=== PATIENT | female | born 1950 | race Caucasian/White ===

== ENCOUNTER 2017-11-09 11:02 | Inpatient (IN) ==
--- NOTE | 2017-11-09 11:21 | Emergency Department Note ---
Disposition Clinical Impression: Chest pain Qualifiers: Chest pain type: unspecified Qualified Code(s): R07.9 - Chest pain, unspecified Disposition: Admitted As Inpatient Chest Pain HPI - General Chief Complaint: ED Chest Pain Stated Complaint: Chest pain Time Seen by Provider: 11/09/17 11:03 Source: patient, EMS Limitations: no limitations Vital Signs Reviewed: Yes Nursing Notes Reviewed: Yes - History of Present Illness HPI Narrative: 67-year-old female with past medical history CAD status post stent in 2006, A. fib on Coumadin, diabetes type 2, previous thyroid cancer, renal disease, and osteoporosis, presenting to the emergency department via EMS with sharp right sided nonradiating chest pain that began while sitting in her chair this morning. She states the pain is mostly constant since the onset of intermittent periods of worsening. She took an aspirin at home, but no nitroglycerin. Associated symptoms include nausea, hot flashes, dyspnea, RUQ pain, and LE edema. She denies any worsening with exertion or vomiting. She states that this chest pain is more intense, and more sharp than her usual chest pain. She denies any recent seizure surgery or prolonged immobility. She does have a history of a blood clot in her left arm after shoulder surgery. She denies recent illness, fever, chills, lightheadedness, syncope, cough, change in bowels, dysuria, or leg pain. Severity scale (1-10): 9 - Related Data Home Medications Medication Instructions Recorded Confirmed Meclizine [Antivert] 25 mg PO AD PRN 06/10/15 11/09/17 Aspirin [Adult Low Dose Aspirin EC] 81 mg PO QPM 07/18/15 11/09/17 Cyanocobalamin (Vitamin B-12) 2,500 mg PO QAM 07/18/15 11/09/17 [Vitamin B12] Diltiazem CD (24hr) [Cardizem CD] 240 mg PO QAM 07/18/15 11/09/17 Isosorbide MONOnitrate (24 HR) 90 mg PO QAM 07/18/15 11/09/17 [Imdur] Ranolazine [Ranexa] 1,000 mg PO BID 07/18/15 11/09/17 Rosuvastatin Calcium [Crestor] 10 mg PO QPM 07/18/15 11/09/17 Warfarin [Coumadin] 5 mg PO SUMOTUWEFRSA 07/18/15 11/09/17 Glimepiride [Amaryl] 3 mg PO QAM 07/21/15 11/09/17 Lansoprazole [Prevacid] 30 mg PO HS 07/21/15 11/09/17 Multivitamin/Iron/Folic Acid 1 each PO QAM 07/21/15 11/09/17 [Centrum Complete Multivit Tab] Saccharomyces Boulardii [Probiotic] 250 mg PO DAILY 07/21/15 11/09/17 Warfarin [Coumadin] 2.5 mg PO TH 07/21/15 11/09/17 Cholecalciferol (Vitamin D3) 1,000 unit PO DAILY 12/26/16 11/09/17 [Vitamin D] Denosumab [Prolia (For Outpatient 60 mg SQ Q6M 12/26/16 11/09/17 Infusion)] Losartan Potassium [Cozaar] 50 mg PO DAILY 12/26/16 11/09/17 Mirabegron [Myrbetriq] 50 mg PO HS 12/26/16 11/09/17 Desvenlafaxine Succinate 150 mg PO DAILY 11/09/17 11/09/17 [Desvenlafaxine Succinate ER] Insulin LISPRO [HumaLOG] 10 unit SQ TIDWM 11/09/17 11/09/17 Levothyroxine Sodium 200 mcg PO DAILY 11/09/17 11/09/17 [Levothyroxine Sodium] Linagliptin [Tradjenta] 5 mg PO DAILY 11/09/17 11/09/17 Allergies Allergy/AdvReac Type Severity Reaction Status Date / Time sulfamethoxazole AdvReac See Verified 12/26/16 09:31 [From Bactrim] Comments trimethoprim [From Bactrim] AdvReac See Verified 12/26/16 09:31 Comments All systems ED: reviewed and negative except as stated. Review of Systems: As Per HPI Chest Pain PMH - Past Medical History Medical history: Reports: atrial fibrillation, cancer, diabetes, GERD, hypertension, osteoporosis, renal disease, thyroid disease, other Surgical history: Reports: angioplasty/stent, breast surgery, hysterectomy, orthopedic, other Psychiatric history: Reports: anxiety, depression FINANCIAL SERVICES ASSOCIATE history: Reports: no FINANCIAL SERVICES ASSOCIATE history - Social History Smoking Status: Never smoker Alcohol use: Reports: none Drug use: Reports: none Physical Exam - General Limitations: no limitations General appearance: alert, in no apparent distress - Head Head exam: atraumatic, normocephalic - Eye Eye exam: Present: normal appearance, EOMI. Absent: scleral icterus, conjunctival injection - ENT ENT exam: mucous membranes moist - Chest Chest inspection: Present: symmetric chest wall rise - Expanded Respiratory Exam Location: decreased breath sounds: Left, Right, Upper, Lower - Cardiovascular Cardiovascular exam: Present: regular rate, normal rhythm, +S1, +S2 - Abdominal Exam Abdominal exam: Present: soft, tenderness, distention, normal bowel sounds. Absent: guarding, rebound, rigidity Abdominal tenderness: Present: diffuse, mild - Extremities Exam Extremities exam: Present: normal inspection, normal capillary refill, pedal edema (+2 bilateral pitting edema). Absent: tenderness, calf tenderness - Neurological Exam Neurological exam: Present: alert, oriented X3 - Skin Skin exam: Present: warm, dry, intact Course Vital Signs Temperature 98.0 F 11/09/17 11:04 Pulse Rate 68 11/09/17 11:04 Respiratory Rate 16 11/09/17 11:04 Blood Pressure 195/99 11/09/17 11:04 O2 Sat by Pulse Oximetry 97 11/09/17 11:04 Temperature 98.0 F 11/09/17 11:04 Pulse Rate 68 11/09/17 12:02 Respiratory Rate 12 11/09/17 12:02 Blood Pressure 182/94 11/09/17 12:02 O2 Sat by Pulse Oximetry 99 11/09/17 12:03 Oxygen Delivery Oxygen Delivery Room Air Chest Pain - [facility] Narrative Medical decision making narrative: Patient's presentations and symptoms are concerning for ACS. ECG from EMS shows no ST changes. Repeat ECG here shows normal rate and rhythm, normal morphology, no ST changes, no inverted T waves. Troponin negative. CBC shows anemia with hemoglobin 10.7 and is consistent with previous evaluation. Chemistry panel significant for creatinine of 1.82, however this is better than her creatinine has been over the past year. D-dimer is elevated at 703, and with the patient's poor renal function we will order a V/Q scan to evaluate for PE. Chest x-ray shows cardiomegaly and increased vascular congestion. This is consistent with patient's worsening lower extremity edema, however BNP is not currently elevated. V/Q scan shows low probability for PE. The patient has a HEART score of 5. She will be admitted to the hospital for continued monitoring and management. - Lab Data Result diagrams: 11/09/17 11:23 11/09/17 11:23 Lab Results 11/09/17 11/09/17 11/09/17 Range/Units 11:23 11:23 11:23 WBC 6.9 (4.3-11.1) K/mcL RBC 3.48 L (3.82-4.97) M/mcL Hgb 10.7 L (11.5-15.4) g/dL Hct 32.0 L (35.3-44.9) % MCV 92.0 (83.0-100.0) fL MCH 30.7 (28.0-33.3) pg MCHC 33.4 (31.6-35.5) g/dL RDW 13.2 (11.5-14.5) % Plt Count 186 (140-400) K/mcL MPV 9.7 (9.4-12.4) fL Immature Gran % 1.0 (0-4) % Seg Neutrophils % 62.7 % Lymphocytes % 27.7 % Monocytes % 6.5 % Eosinophils % 1.7 % Basophils % 0.4 % Neutrophils # 4.3 (1.6-8.9) K/mcL Lymphocytes # 1.9 (0.6-4.6) K/mcL Monocytes # 0.5 (0.0-1.3) K/mcL Eosinophils # 0.1 (0.0-0.6) K/mcL Basophils # 0.0 (0.0-0.2) K/mcL PT 23.8 H (9.4-12.1) Seconds INR 2.2 APTT 30.7 (26.0-36.0) Seconds D-Dimer 703 H (0-500) ng/mLFEU Sodium (136-145) mEq/L Potassium (3.5-5.1) mEq/L Chloride (98-107) mEq/L Carbon Dioxide (23-29) mEq/L BUN (8-23) mg/dL Creatinine (0.60-1.20) mg/dL Est GFR ( Amer) (> 60) Est GFR (Non-Af Amer) (> 60) BUN/Creatinine Ratio (6-26) Glucose (70-105) mg/dL Calculated Osmolality (280-300) Calcium (8.6-10.3) mg/dL Troponin I (< 0.04) ng/mL B-Natriuretic Peptide 34 (Less than 100) pg/mL 11/09/ Range/Units 11:23 WBC (4.3-11.1) K/mcL RBC (3.82-4.97) M/mcL Hgb (11.5-15.4) g/dL Hct (35.3-44.9) % MCV (83.0-100.0) fL MCH (28.0-33.3) pg MCHC (31.6-35.5) g/dL RDW (11.5-14.5) % Plt Count (140-400) K/mcL MPV (9.4-12.4) fL Immature Gran % (0-4) % Seg Neutrophils % % Lymphocytes % % Monocytes % % Eosinophils % % Basophils % % Neutrophils # (1.6-8.9) K/mcL Lymphocytes # (0.6-4.6) K/mcL Monocytes # (0.0-1.3) K/mcL Eosinophils # (0.0-0.6) K/mcL Basophils # (0.0-0.2) K/mcL PT (9.4-12.1) Seconds INR APTT (26.0-36.0) Seconds D-Dimer (0-500) ng/mLFEU Sodium 139 (136-145) mEq/L Potassium 3.8 (3.5-5.1) mEq/L Chloride 103 (98-107) mEq/L Carbon Dioxide 29 (23-29) mEq/L BUN 28 H (8-23) mg/dL Creatinine 1.82 H (0.60-1.20) mg/dL Est GFR ( Amer) 34 L (> 60) Est GFR (Non-Af Amer) 28 L (> 60) BUN/Creatinine Ratio 15 (6-26) Glucose 164 H (70-105) mg/dL Calculated Osmolality 297 (280-300) Calcium 9.7 (8.6-10.3) mg/dL Troponin I < 0.03 (< 0.04) ng/mL B-Natriuretic Peptide (Less than 100) pg/mL - EKG Data EKG attestation: Yes I reviewed and interpreted this EKG. EKG results narrative: normal rate and rhythm, normal morphology, no ST changes, no inverted T waves. Consistent with previous ECG. Heart Score - Score History: Moderately Suspicious EKG: Normal Age: Greater than 65 Risk Factors: Equal/Greater than 3 risk factor or history of atherosclerotic disease Troponin: Less than normal limit HEART Score Total: 5 Critical Care Time Critical Care Time: Yes Total Critical Care Time: 35 Attestation: Critical care time 35 minutes managing patient's chest pain hypertension and CHF. Attestation Statement - Attestation Attestation: Patient was seen with resident physician. I reviewed the history, physical, assessment and plan, and agree with the findings. I also personally evaluated this patient and had [id number] time with this patient. 67-year-old female presents to the emergency Department chief complaint of chest pain. Start approximately 9:00 AM. Right sided underneath the right breast a pressure component as well as a sharp component. Not reproducible. Dissimilar from her heart attack pain in that is more severe and in a different location. Denies fevers chills nausea or vomiting she did have some mild diaphoresis. No significant shortness of breath. She notes that her legs are more swollen than usual. She says some days are good some days are bad and today's a bad day. On examination vital signs demonstrate hypertension. ENT is unremarkable. Heart and lungs are normal. Chest wall is stable with nonreproducible pain. Abdomen is obese nontender. Extremities she has got 2+ edema lower extremities symmetrically bilaterally. Neurologically intact skin no obvious rashes. And psych is normal. ED course EKG shows no acute ischemic changes when compared with prior EKG. Chest x-ray shows some vascular congestion which is consistent with CHF. She did have a positive d-dimer which triggered a CT scan of the chest as well. She is given 3 nitros which helped a little bit with her pain and also with her blood pressure. Because of the patient's multiple comorbidities and cardiac history. Will admit to the hospitalist service for additional evaluation and treatment. Critical care time was 35 minutes for this patient. VQ scan was obtained and was low probability for pulmonary embolism.
[2017-11-09 11:29] LABS: Basophils % 0.4 %; Eosinophils # 0.1 K/mcL (0.0-0.6); Eosinophils % 1.7 %; Hemoglobin 10.7 g/dL (11.5-15.4); Lymphocytes # 1.9 K/mcL (0.6-4.6); Lymphocytes % 27.7 %; Mean Corpuscular HGB Conc 33.4 g/dL (31.6-35.5); Mean Corpuscular Hemoglobin 30.7 pg (28.0-33.3); Mean Platelet Volume 9.7 fL (9.4-12.4); Monocytes # 0.5 K/mcL (0.0-1.3); Monocytes % 6.5 %; Neutrophils # 4.3 K/mcL (1.6-8.9); Platelet Count 186 K/mcL (140-400); Red Blood Count 3.48 M/mcL (3.82-4.97); Red Cell Distribution Width 13.2 % (11.5-14.5); Segmented Neutrophils % 62.7 %
[2017-11-09 11:35] LABS: INR 2.2; Prothrombin Time 23.8 Seconds (9.4-12.1)
[2017-11-09 11:38] LABS: Activated Partial Thrombo Time 30.7 Seconds (26.0-36.0)
[2017-11-09] MEDS: Nitroglycerin 0.4 MG TAB.SUBL SL ONE ×2 (11:40→12:02)
[2017-11-09 11:52] LABS: BUN/Creatinine Ratio 15 (6-26); Blood Urea Nitrogen 28 mg/dL (8-23); Calcium 9.7 mg/dL (8.6-10.3); Carbon Dioxide 29 mEq/L (23-29); Chloride 103 mEq/L (98-107); Glucose 164 mg/dL (70-105); Osmolality,Calculated 297 (280-300); Potassium 3.8 mEq/L (3.5-5.1); Sodium 139 mEq/L (136-145); eGFR For African Americans 34 (> 60); eGFR For Non-African Americans 28 (> 60)
[2017-11-09 11:53] LABS: Troponin I < 0.03 ng/mL (< 0.04)
[2017-11-09] MEDS ORDERED: *HR* FentaNYL (PF) 100 MCG/2 ML VIAL IVP ONE ×2 (12:08→12:24)
[2017-11-09] MEDS ORDERED: Naloxone 0.4 MG/ML INJ IVP PRN (15:18)
[2017-11-09] MEDS: *HR* OxyCODONE Immed Rel 5 MG TABLET PO PRN ×2 (15:53→22:14)
[2017-11-09] MEDS ORDERED: *HR* Dextrose 50 % in Water (Syg) 50 ML SYRINGE IVP PRN (15:55)
[2017-11-09] MEDS ORDERED: D5% in Water 1,000 ML IVC PRN (15:55)
[2017-11-09] MEDS ORDERED: Dextrose Gel 15 GM/37.5 ML TUBE PO PRN ×2 (15:55)
--- NOTE | 2017-11-09 16:04 | Internal Med History&Physical ---
<Kanwal Singh - Last Filed: 11/09/17 15:58> Date of Encounter: 11/09/17 Time of Encounter: 15:58 Assessment and Plan (1) Atypical chest pain Current visit: Yes Status: Acute Patient with right-sided chest pain since 10 am today. She has a history of CAD with stent placement as well as afib on coumadin. Other cardiovascular risk factors include type 2 diabetes and hypertension. EKG showed no ST changes and normal rate and rhythm. CXR showed cardiomegaly and increased vascular congestion. BNP was normal at 34. Troponin was negative at <0.03. D- dimer was mildly elevated at 703. V/Q scan was negative for PE. Will be evaluating for cholecystitis and pancreatitis, but will rule out ACS given patient's history and risk factors. 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 (2) RUQ abdominal pain Current visit: Yes Status: Acute Patient with RUQ pain, nausea. She is tender to palpation in the RUQ as well. She reports regular bowel movements today. She has never had her gall bladder out. Will check Amylase/Lipase with concern for possible pancreatitis and get a RUQ ultrasound to evaluate for possible cholecystitis. NPO. Pain control. (3) Atrial fibrillation Current visit: Yes Status: Chronic History of afib on diltiazem and coumadin. EKG showed RRR today. INR therapeutic at 2.2. Continue home dose of diltiazem. Pharmacy to dose coumadin. 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 Qualifiers: Atrial fibrillation type: unspecified Qualified Code(s): I48.91 - Unspecified atrial fibrillation (4) Anticoagulated on Coumadin Current visit: Yes Status: Acute INR therapeutic at 2.2. Check PT/INR daily. PHarmacy to dose coumadin. (5) CKD (chronic kidney disease) Current visit: Yes Status: Chronic Cr of 1.82 today consistent with baseline. Check chemistry daily. Qualifiers: Chronic kidney disease stage: stage 2 (mild) Qualified Code(s): N18.2 - Chronic kidney disease, stage 2 (mild) (6) Type II diabetes mellitus Current visit: Yes Status: Chronic Patient with Type 2 diabetes. Hold glimeperide and tradjenta Patient NPO due to nausea. Check blood sugars Q6 hours Sliding scale correction dose Q6 hours hypoglycemic protocol. 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 Patient on coumadin for Afib, additional pharmacologic prophylaxis not warranted. Internal Medicine - H&P: HPI Chief complaint: chest pain and nausea Admitted From: Emergency Dept Plans for Post Hospital Care: Home History of present illness: Ms. Dawn is a 67 year old female with history of coronary artery disease status post stent placement, atrial fibrillation, on Coumadin, type 2 diabetes on insulin, chronic kidney disease, osteoporosis, hypertension, GERD, who presented to the emergency department today complaining of chest pain. She reports chest pain started at 10 AM this morning and states it is right under her right breast and radiating to her back. She reports she took aspirin which did not help. The pain is constant, nothing seems to make it better or worse. She also reporting constant nausea, hot flashes, and increased lower extremity edema, as well as lightheadedness. Evaluation emergency department included an EKG which showed no ST changes, normal rate and rhythm, chest x-ray showed cardiomegaly with increased vascular congestion. BNP was normal at 34, d-dimer is mildly elevated at 703. VQ scan was done which was negative for PE. Troponin was negative less than 0.03. INR was therapeutic at 2.2. Creatinine of 1.8 to was consistent with previous results and her history of CKD. On exam , patient is alert and oriented, in mild distress due to her pain. She is morbidly obese. Heart has regular rate and rhythm, no murmurs rubs or gallops. Lungs are clear bilaterally to auscultation except some mild crackles in her right base. Abdomen is soft, positive bowel sounds, tender to palpation in the right upper quadrant. +1 bilateral lower extremity edema with good peripheral pulses. Past Med Surg Social Fam HX - Past Medical History Medical history: atrial fibrillation, cancer, DVT, diabetes, GERD, hypertension , osteoporosis, renal disease, thyroid disease, other Psychiatric history: anxiety, depression - Past Surgical History Surgical History: angioplasty/stent, breast surgery, hysterectomy, orthopedic, other - Social History Smoking Status: Never smoker Smokeless Tobacco Status: No Alcohol use: none Drug use: none - Family History Mother Living Status: Hx Family Cardiac Disorders: Yes Hx Family Respiratory Disorders: No Hx Family Cancer: Yes Hx Family GI Disorders: No Hx Family Endocrine Disorder: No Hx Family Neuromuscular Disorders: No Hx Family Neurologic Disorders: No Hx Family HEENT Disorders: No Hx Family Autoimmune Disorders: No Hx Family Medical Disorders: Yes (brain aneurysm) Father Living Status: Hx Family Medical Disorders: Yes ("nosebleed from coumadin") Internal Medicine - H&P: Meds Meclizine [Antivert] 25 mg PO AD PRN 06/10/15 [History] Aspirin [Adult Low Dose Aspirin EC] 81 mg PO QPM 07/18/15 [History] Cyanocobalamin (Vitamin B-12) [Vitamin B12] 2,500 mg PO QAM 07/18/15 [History] Diltiazem CD (24hr) [Cardizem CD] 240 mg PO QAM 07/18/15 [History] Isosorbide MONOnitrate (24 HR) [Imdur] 90 mg PO QAM 07/18/15 [History] Ranolazine [Ranexa] 1,000 mg PO BID 07/18/15 [History] Rosuvastatin Calcium [Crestor] 10 mg PO QPM 07/18/15 [History] Warfarin [Coumadin] 5 mg PO SUMOTUWEFRSA 07/18/15 [History] Glimepiride [Amaryl] 3 mg PO QAM 07/21/15 [History] Lansoprazole [Prevacid] 30 mg PO HS 07/21/15 [History] Multivitamin/Iron/Folic Acid [Centrum Complete Multivit Tab] 1 each PO QAM 07/21 [History] Saccharomyces Boulardii [Probiotic] 250 mg PO DAILY 07/21/15 [History] Warfarin [Coumadin] 2.5 mg PO TH 07/21/15 [History] Cholecalciferol (Vitamin D3) [Vitamin D] 1,000 unit PO DAILY 12/26/16 [History] Denosumab [Prolia (For Outpatient Infusion)] 60 mg SQ Q6M 12/26/16 [History] Losartan Potassium [Cozaar] 50 mg PO DAILY 12/26/16 [History] Mirabegron [Myrbetriq] 50 mg PO HS 12/26/16 [History] Desvenlafaxine Succinate [Desvenlafaxine Succinate ER] 150 mg PO DAILY 11/09/17 [History] Insulin LISPRO [HumaLOG] 10 unit SQ TIDWM 11/09/17 [History] Levothyroxine Sodium [Levothyroxine Sodium] 200 mcg PO DAILY 11/09/17 [History] Linagliptin [Tradjenta] 5 mg PO DAILY 11/09/17 [History] 3 Allergy/AdvReac Type Severity Reaction Status Date / Time sulfamethoxazole AdvReac See Verified 12/26/16 09:31 [From Bactrim] Comments trimethoprim [From Bactrim] AdvReac See Verified 12/26/16 09:31 Comments All Systems PM: A 10-system review of systems was performed and is negative for pertinent findings except as documented above in the HPI. - Constitutional Constitutional: anorexia, chills - EENT Eyes: no change in vision, no discharge, no pain, no photophobia Ears: no ear discharge, no ear pain, no tinnitus Nose, mouth and throat: no dysphagia, no nasal discharge, no neck pain, no sore throat - Cardiovascular Cardiovascular ROS IM: chest pain, edema, lightheadedness, no diaphoresis, no dyspnea, no palpitations, no syncope - Respiratory Respiratory: no cough, no dyspnea, no wheezing, no excessive phlegm production - Gastrointestinal Gastrointestinal: abdominal pain, nausea, no diarrhea, no hematemesis, no hematochezia, no melena, no vomiting - Genitourinary Genitourinary: no change in urinary stream, no dysuria, no flank pain, no hematuria - Musculoskeletal Musculoskeletal ROS IM: no numbness, no tingling - Integumentary Integumentary IM: no rash, no unusual bruising - Neurological Neurological ROS: no confusion, no convulsions, no focal weakness, no numbness, no tingling, no tremor(s) - Hematologic/Lymphatic Hematologic/Lymphatic: no easy bruising - Constitutional Vitals: Temp Pulse Resp BP Pulse Ox 97.5 F L 56 16 189/92 96 11/09/17 14:51 11/09/17 14:51 11/09/17 14:51 11/09/17 14:51 11/09/17 15:01 General appearance: Present: mild distress, A&O X 3, morbidly obese - Head Head exam: Present: atraumatic, normocephalic - Eye Eye exam: Present: PERRL, conjuntiva pink, sclera anicteric Pupils: Present: PERRL - Neck Neck exam general surgery: Present: supple, trachea midline. Absent: lymphadenopathy - Respiratory Respiratory exam: Present: CTAB. Absent: accessory muscle use, rales, rhonchi, wheezes Additional comments: mild crackles in right base - Cardiovascular Cardiovascular exam: Present: RRR, +S1, +S2. Absent: diastolic murmur, gallop, rubs, systolic murmur - GI/Abdominal GI/Abdominal exam: Present: normal bowel sounds, soft, tenderness (right upper quadrant). Absent: distended - Extremities Exam Extremities exam: Present: pedal edema (+2 BLE edema), warm, radial pulses palpable and symmetrical. Absent: calf tenderness, cyanotic - Neurological Exam Neurological exam: Present: CN II-XII intact, oriented X3, no focal deficits. Absent: facial droop, speech deficit - Skin Skin exam: Present: dry, intact Internal Med - H&P Results - Labs CBC & Chem 7: 11/09/17 11:23 11/09/17 11:23 - Diagnostic Studies Other Images Additional comments: Pulmonary Perfusion Imaging 11/09/17 11:59 IMPRESSION: Low Probability for Pulmonary Embolus. No scintigraphic evidence of acute PE. D/ / Adis Ricardo MD / Adis Ricardo MD Interpreting Provider: Adis Ricardo MD Chest x-ray Additional comments: Chest X-Ray 11/09/17 11:15 IMPRESSION: Cardiomegaly and central vascular congestion. D/ / Marcell Dejesus MD / Marcell Dejesus MD Interpreting Provider: Marcell Dejesus MD <RonnElia العلي - Last Filed: 11/09/17 19:36> Date of Encounter: 11/09/17 Internal Medicine - H&P: HPI History of present illness: Ms. Dwan is a 67 year old female All Systems PM: A 10-system review of systems was performed and is negative for pertinent findings except as documented above in the HPI. - Constitutional Vitals: Temp Pulse Resp BP Pulse Ox 98.2 F 76 16 207/87 95 11/09/17 15:18 11/09/17 15:18 11/09/17 15:18 11/09/17 15:18 11/09/17 15:18 Internal Med - H&P Results - Labs CBC & Chem 7: 11/09/17 11:23 11/09/17 11:23 - Impressions ITS Impressions Gallbladder Ultrasound 11/09/17 15:34 IMPRESSION: Cholelithiasis and probable cholecystitis. Enlarging right adrenal mass. Recommend follow-up CT adrenal protocol and/or MRI adrenal protocol. RECOMMENDATIONS: The findings were sent to the Radiology Results Communication Center at 6:52 pm on 11/09/2017to be communicated to a licensed caregiver. D/ / Lee Forman MD / Lee Forman MD Interpreting Provider: Lee Forman MD - Attending Attestation I have personally performed a face to face evaluation on this patient. I have reviewed and agree with the care plan. History and Exam by me shows: Patient presented to the hospital for evaluation of shortness of breath. She describes right-sided shortness of breath under the right breast sharp and stabbing. On exam she is in mild distress due to chest pain. Heart is regular. Lungs are clear. Examination of chest wall shows no rashes bruises or deformities. There is tenderness to palpation of the right lower rib cage. Laboratory data: Troponin negative. VQ scan was low probability for PE Assessment: Atypical chest pain in a patient with multiple risk factors. Plan: Trend troponin. Obtain echocardiogram and stress test. Agree with gallbladder ultrasound to rule out any intra-abdominal pathology. Add lipase.
[2017-11-09] MEDS: Ondansetron 4 MG/2 ML VIAL IVP PRN (16:52)
[2017-11-09 16:58] LABS: Amylase 15 Units/L (29-103); Lipase 25 Units/L (11-82)
[2017-11-09] MEDS ORDERED: *HR* Warfarin 5 MG TABLET PO ONE (18:00)
[2017-11-09] MEDS ORDERED: Warfarin perPT PO PRN (18:00)
[2017-11-09] MEDS ORDERED: Ondansetron 4 MG/2 ML VIAL IVP SCH (18:00)
[2017-11-09] MEDS: Insulin LISPRO 300 UNITS/3 ML VIAL SQ SCH (19:01)
[2017-11-09] MEDS: Aspirin Enteric Coated 81 MG Tablet PO SCH (19:01)
[2017-11-09 21:20] LABS: Albumin 3.2 g/dL (3.5-5.7); Bilirubin,Direct 0.1 mg/dL (0.0-0.2); Bilirubin,Indirect 0.2 mg/dL (0.0-1.2); Bilirubin,Total 0.3 mg/dL (0.3-1.0); Globulin 3.1 g/dL (2.4-3.5); Total Protein 6.3 g/dL (6.4-8.9)
[2017-11-09] MEDS: Ranolazine 500 MG TAB.ER.12H PO SCH (22:13)
[2017-11-09] MEDS: (Mirabegron [Myrbetriq] 50 MG) PO SCH (22:14)
--- NOTE | 2017-11-09 23:33 | General Surgery Consult Note ---
Date of Encounter: 11/09/17 Time of Encounter: 23:31 Assessment and Plan (1) RUQ abdominal pain Current Visit: Yes Status: Acute 67F with atypical symptoms of gallbladder disease, currently in pain, INR within therapeutic range; IVF pain control CLD if the patient's pain is controlled in the AM can possibly plan for outpatient evaluation and plan for surgery if pain is not controlled, then jignesh rankin plan for inpatient procedure cares per primary team History of Present Illness Consult date: 11/09/17 Reason for consult: abdominal pain History of present illness: 67F h/o CAD s/p stent, atrial fibrillation currently on anticoagulant with iNR within therapeutic range presents with what she felt was chest pain consistent with cardiac pathology. Her work up, however, was negative. an US was obtained , which was reviewed and interpreted by me, demonstrated cholelithiasis. She does not report any post prandial pain, but does give an obscure history of persistent nausea. When asked where her pain is, she points to her RUQ. Surgery was consulted for management recommendations. Past Med Surg Social Fam HX - Past Medical History Medical history: atrial fibrillation, cancer, DVT, diabetes, GERD, hypertension , osteoporosis, renal disease, thyroid disease, other Psychiatric history: anxiety, depression - Past Surgical History Surgical History: angioplasty/stent, breast surgery, hysterectomy, orthopedic, other - Social History Smoking Status: Never smoker Smokeless Tobacco Status: No Alcohol use: none Drug use: none - Family History Mother Living Status: Hx Family Cardiac Disorders: Yes Hx Family Respiratory Disorders: No Hx Family Cancer: Yes Hx Family GI Disorders: No Hx Family Endocrine Disorder: No Hx Family Neuromuscular Disorders: No Hx Family Neurologic Disorders: No Hx Family HEENT Disorders: No Hx Family Autoimmune Disorders: No Hx Family Medical Disorders: Yes (brain aneurysm) Father Living Status: Hx Family Medical Disorders: Yes ("nosebleed from coumadin") Medications and Allergies Meclizine [Antivert] 25 mg PO AD PRN 06/10/15 [History] Aspirin [Adult Low Dose Aspirin EC] 81 mg PO QPM 07/18/15 [History] Cyanocobalamin (Vitamin B-12) [Vitamin B12] 2,500 mg PO QAM 07/18/15 [History] Diltiazem CD (24hr) [Cardizem CD] 240 mg PO QAM 07/18/15 [History] Isosorbide MONOnitrate (24 HR) [Imdur] 90 mg PO QAM 07/18/15 [History] Ranolazine [Ranexa] 1,000 mg PO BID 07/18/15 [History] Rosuvastatin Calcium [Crestor] 10 mg PO QPM 07/18/15 [History] Warfarin [Coumadin] 5 mg PO [id number] 07/18/15 [History] Glimepiride [Amaryl] 3 mg PO QAM 07/21/15 [History] Lansoprazole [Prevacid] 30 mg PO HS 07/21/15 [History] Multivitamin/Iron/Folic Acid [Centrum Complete Multivit Tab] 1 each PO QAM 07/21 [History] Saccharomyces Boulardii [Probiotic] 250 mg PO DAILY 07/21/15 [History] Warfarin [Coumadin] 2.5 mg PO TH 07/21/15 [History] Cholecalciferol (Vitamin D3) [Vitamin D] 1,000 unit PO DAILY 12/26/16 [History] Denosumab [Prolia (For Outpatient Infusion)] 60 mg SQ Q6M 12/26/16 [History] Losartan Potassium [Cozaar] 50 mg PO DAILY 12/26/16 [History] Mirabegron [Myrbetriq] 50 mg PO HS 12/26/16 [History] Desvenlafaxine Succinate [Desvenlafaxine Succinate ER] 150 mg PO DAILY 11/09/17 [History] Insulin LISPRO [HumaLOG] 10 unit SQ TIDWM 11/09/17 [History] Levothyroxine Sodium [Levothyroxine Sodium] 200 mcg PO DAILY 11/09/17 [History] Linagliptin [Tradjenta] 5 mg PO DAILY 11/09/17 [History] 3 Allergy/AdvReac Type Severity Reaction Status Date / Time sulfamethoxazole AdvReac See Verified 12/26/16 09:31 [From Bactrim] Comments trimethoprim [From Bactrim] AdvReac See Verified 12/26/16 09:31 Comments Review of Systems All systems PM: The remainder of the systems were reviewed and are negative General Surgery Exam Initial Vital Signs Temp Pulse Resp BP Pulse Ox 98.0 F 68 16 195/99 97 11/09/17 11:04 11/09/17 11:04 11/09/17 11:04 11/09/17 11:04 11/09/17 11:04 - General physical appearance no distress - Eyes other (no scleral icterus) - ENT normocephalic - Neck no masses, trachea midline, no lymphadectomy - Respiratory normal expansion, normal respiratory effort - Cardiovascular Cardiovascular exam: Present: RRR - Abdomen Abdomen general surgery: Present: soft, tender Abdominal Tenderness: Present: RUQ - Integumentary Integumentary general surgery: Present: warm and dry - Neurologic Present: CN 2-12 grossly intact - Psychiatric Psychiatric general surgery: Present: A&Ox3 Exam Initial Vital Signs Temp Pulse Resp BP Pulse Ox 98.0 F 68 16 195/99 97 11/09/17 11:04 11/09/17 11:04 11/09/17 11:04 11/09/17 11:04 11/09/17 11:04 Results - Labs 11/09/17 11:23 11/09/17 11:23 Abnormal lab results RBC 3.48 M/mcL (3.82-4.97) L 11/09/17 11:23 Hgb 10.7 g/dL (11.5-15.4) L 11/09/17 11:23 Hct 32.0 % (35.3-44.9) L 11/09/17 11:23 PT 23.8 Seconds (9.4-12.1) H 11/09/17 11:23 D-Dimer 703 ng/mLFEU (0-500) H 11/09/17 11:23 BUN 28 mg/dL (8-23) H 11/09/17 11:23 Creatinine 1.82 mg/dL (0.60-1.20) H 11/09/17 11:23 Est GFR ( Amer) 34 (> 60) L 11/09/17 11:23 Est GFR (Non-Af Amer) 28 (> 60) L 11/09/17 11:23 Glucose 164 mg/dL (70-105) H 11/09/17 11:23 POC Glucose 174 (58-89) H 11/09/17 18:48 AST 12 Units/L (13-39) L 11/09/17 20:19 Serum Total Protein 6.3 g/dL (6.4-8.9) L 11/09/17 20:19 Albumin 3.2 g/dL (3.5-5.7) L 11/09/17 20:19 Albumin/Globulin Ratio 1.0 (1.1-2.2) L 11/09/17 20:19 Amylase 15 Units/L (29-103) L 11/09/17 15:54 Diabetes panel 11/09/17 Range/Units 20:19 AST 12 L (13-39) Units/L ALT 12 (7-52) Units/L Alkaline Phosphatase 68 (34-104) Units/L Albumin 3.2 L (3.5-5.7) g/dL Calcium panel 11/09/17 Range/Units 20:19 Albumin 3.2 L (3.5-5.7) g/dL Adrenal panel 11/09/17 Range/Units 20:19 Total Bilirubin 0.3 (0.3-1.0) mg/dL AST 12 L (13-39) Units/L ALT 12 (7-52) Units/L Alkaline Phosphatase 68 (34-104) Units/L Albumin 3.2 L (3.5-5.7) g/dL All other labs normal. - Imaging US - abdomen: report reviewed, image reviewed (cholelithiasis, possible cholecystitis) Consult Discharge Plan - Plan
[2017-11-10] MEDS: Insulin LISPRO 300 UNITS/3 ML VIAL SQ SCH ×4 (00:14→19:02)
[2017-11-10 01:40] LABS: Basophils % 0.2 %; Hematocrit 32.2 % (35.3-44.9); Hemoglobin 10.5 g/dL (11.5-15.4); Immature Granulocytes % 0.8 % (0-4); Lymphocytes # 0.9 K/mcL (0.6-4.6); Lymphocytes % 9.1 %; Mean Corpuscular HGB Conc 32.6 g/dL (31.6-35.5); Mean Corpuscular Hemoglobin 30.6 pg (28.0-33.3); Mean Corpuscular Volume 93.9 fL (83.0-100.0); Mean Platelet Volume 10.8 fL (9.4-12.4); Monocytes # 0.4 K/mcL (0.0-1.3); Monocytes % 3.9 %; Neutrophils # 8.7 K/mcL (1.6-8.9); Platelet Count 220 K/mcL (140-400); Red Blood Count 3.43 M/mcL (3.82-4.97); Red Cell Distribution Width 13.4 % (11.5-14.5)
[2017-11-10 01:52] LABS: Prothrombin Time 22.3 Seconds (9.4-12.1)
[2017-11-10 02:10] LABS: Albumin 3.3 g/dL (3.5-5.7); Albumin/Globulin Ratio 1.2 (1.1-2.2); Bilirubin,Total 0.3 mg/dL (0.3-1.0); Calcium 9.5 mg/dL (8.6-10.3); Chol/HDL Ratio 4.7 (0-4.9); Globulin 2.8 g/dL (2.4-3.5); Potassium 4.2 mEq/L (3.5-5.1); Total Protein 6.1 g/dL (6.4-8.9)
[2017-11-10] MEDS: *HR* OxyCODONE Immed Rel 5 MG TABLET PO PRN ×3 (06:24→18:49)
[2017-11-10] MEDS: Diltiazem CD (24hr) 240 MG CAPSULE PO SCH (07:46)
[2017-11-10] MEDS: Cholecalciferol (D-3) 1,000 UNIT TABLET PO SCH (07:46)
[2017-11-10] MEDS: Venlafaxine XR (24 HR) 75 MG CAP.ER.24H PO SCH (07:47)
[2017-11-10] MEDS: Ranolazine 500 MG TAB.ER.12H PO SCH ×2 (07:47→20:40)
[2017-11-10] MEDS: Isosorbide MONOnitrate (24 HR) 60 MG TAB.ER.24H PO SCH (07:47)
[2017-11-10] MEDS: (Linagliptin [Tradjenta] 5 MG) PO SCH (07:48)
[2017-11-10] MEDS ORDERED: *HR* Glimepiride 2 MG TABLET PO SCH (09:00)
[2017-11-10] MEDS: Ondansetron 4 MG/2 ML VIAL IVP PRN (11:56)
[2017-11-10] MEDS: 0.9 % Sodium Chloride 1,000 ML IVC SCH (12:00)
--- NOTE | 2017-11-10 14:43 | General Surgery Progress Note ---
Date of Encounter: 11/10/17 Time of Encounter: 14:39 - Assessment and Plan (1) RUQ abdominal pain Current Visit: Yes Status: Acute 67F with atypical symptoms of gallbladder disease, currently in pain, INR within therapeutic range; IVF pain control - if this can be accomplished, then can plan for discharge with plans for follow up in clinic and scheduling surgery if pain is not controlled and patient is not able to tolerate a diet by 11/11, then will plan for surgery this week (either or saturday) will cont to follow Subjective Patient reports: no new complaints, still having pain, pain is less, afebrile Objective Vital Signs - Last 8 Hours Temp Pulse Resp BP Pulse Ox 11/10/17 11:09 98.2 F 90 20 180/109 93 11/10/17 08:01 93 11/10/17 06:45 98.8 F 97 18 162/80 93 Intake and Output 11/09/17 11/10/17 11/10/17 23:59 07:59 15:59 Intake Total 120 / 120 Output Total 200 / 200 Balance -200 / -200 120 / 120 Intake: Oral 120 / 120 Output: Urine 200 / 200 Other: Meal Lunch Percent of Meal Consumed 50% # Voids 1 Blood Glucose* 183 204 - General physical appearance well developed, no distress - Eyes other (no scleral icterus) - Respiratory normal expansion, normal respiratory effort - Cardiovascular Cardiovascular exam: Present: RRR - Abdomen Abdomen: Present: soft, tender Abdominal Tenderness: epigastic (non peritoneal, (-)latham's on exam), RUQ - Integumentary no rash - Neurologic CN 2-12 grossly intact - Psychiatric oriented to time, oriented to person, oriented to place - Labs 11/10/17 00:40 11/10/17 00:40 Diabetes panel 11/09/17 11/10/17 Range/Units 20:19 00:40 Sodium 138 (136-145) mEq/L Potassium 4.2 (3.5-5.1) mEq/L Chloride 104 (98-107) mEq/L Carbon Dioxide 25 (23-29) mEq/L BUN 27 H (8-23) mg/dL Creatinine 1.67 H (0.60-1.20) mg/dL Glucose 200 H (70-105) mg/dL Calcium 9.5 (8.6-10.3) mg/dL AST 12 L 16 (13-39) Units/L ALT 12 11 (7-52) Units/L Alkaline Phosphatase 68 73 (34-104) Units/L Albumin 3.2 L 3.3 L (3.5-5.7) g/dL Triglycerides 250 H (< 150) mg/dL HDL Cholesterol 51 (40-59) mg/dL Calcium panel 11/09/17 11/10/17 Range/Units 20:19 00:40 Calcium 9.5 (8.6-10.3) mg/dL Albumin 3.2 L 3.3 L (3.5-5.7) g/dL Pituitary panel 11/10/17 Range/Units 00:40 Sodium 138 (136-145) mEq/L Potassium 4.2 (3.5-5.1) mEq/L Chloride 104 (98-107) mEq/L Carbon Dioxide 25 (23-29) mEq/L BUN 27 H (8-23) mg/dL Creatinine 1.67 H (0.60-1.20) mg/dL Glucose 200 H (70-105) mg/dL Calcium 9.5 (8.6-10.3) mg/dL Adrenal panel 11/09/17 11/10/17 Range/Units 20:19 00:40 Sodium 138 (136-145) mEq/L Potassium 4.2 (3.5-5.1) mEq/L Chloride 104 (98-107) mEq/L Carbon Dioxide 25 (23-29) mEq/L BUN 27 H (8-23) mg/dL Creatinine 1.67 H (0.60-1.20) mg/dL Glucose 200 H (70-105) mg/dL Calcium 9.5 (8.6-10.3) mg/dL Total Bilirubin 0.3 0.3 (0.3-1.0) mg/dL AST 12 L 16 (13-39) Units/L ALT 12 11 (7-52) Units/L Alkaline Phosphatase 68 73 (34-104) Units/L Albumin 3.2 L 3.3 L (3.5-5.7) g/dL Consult Discharge Plan - Plan Referrals: Kaiden Hammer DO [Primary Care Provider] -
[2017-11-10] MEDS: Aspirin Enteric Coated 81 MG Tablet PO SCH (17:26)
[2017-11-10] MEDS ORDERED: *HR* Warfarin 5 MG TABLET PO ONE (18:00)
--- NOTE | 2017-11-10 19:11 | Internal Med Progress Note ---
Date of Encounter: 11/10/17 Time of Encounter: 19:09 - Assessment and plan (1) RUQ abdominal pain Current Visit: Yes Status: Acute Assessment and plan: Ultrasound with suspected cholecystitis. Surgery consulted; appreciate input. Consider inpatient vs outpatient cholecystecomy based on pain control and tolerance of diet. Advance to full liquid diet. Pain control. (2) Cholecystitis Current Visit: Yes Status: Suspected Assessment and plan: As per above. (3) Atypical chest pain Current Visit: Yes Status: Acute Assessment and plan: Chest pain resolved. Troponin trended down this AM to 0.04. F/U ECHO results. Will consider stress test after resolution of acute GI issue. (4) Type II diabetes mellitus Current Visit: Yes Status: Chronic Assessment and plan: Continue accuchecks and SSI QID AC/HS. Qualifiers: Diabetes mellitus complication status: with kidney complications Diabetes mellitus complication detail: with chronic kidney disease Diabetes mellitus manager long term care insulin use: with mcc use Chronic kidney disease stage: stage 3 (moderate) Qualified Code(s): E11.22 - Type 2 diabetes mellitus with diabetic chronic kidney disease; N18.3 - Chronic kidney disease, stage 3 ( moderate); N18.3 - Chronic kidney disease, stage 3 (moderate); Z79.4 - ferry terminal agent (current) use of insulin; Z79.4 - intermediate (current) use of insulin; Z79.4 - ferry terminal agent (current) use of insulin; Z79.4 - intermediate (current) use of insulin (5) Atrial fibrillation Current Visit: Yes Status: Chronic Assessment and plan: Continue home diltiazem and coumadin. Qualifiers: Atrial fibrillation type: unspecified Qualified Code(s): I48.91 - Unspecified atrial fibrillation (6) Anticoagulated on Coumadin Current Visit: Yes Status: Chronic Assessment and plan: Therapeutic. Continue coumadin. Check PT/INR daily. Pharmacy to dose coumadin. (7) CKD (chronic kidney disease) Current Visit: Yes Status: Chronic Assessment and plan: Cr at baseline. Continue to monitor. Qualifiers: Chronic kidney disease stage: stage 2 (mild) Qualified Code(s): N18.2 - Chronic kidney disease, stage 2 (mild) (8) DVT prophylaxis Current Visit: Yes Status: Acute Assessment and plan: On coumadin. - Time Spent With Patient less than 15 minutes - Subjective Interval history: Patient had no acute events overnight. She continues to have significant abdominal pain this AM. No pain in chest. She is tolerating clear liquid diet. She has no new complaints. - Constitutional Vitals: Temp Pulse Resp BP Pulse Ox 97.8 F 73 16 120/67 93 11/10/17 15:34 11/10/17 15:34 11/10/17 15:34 11/10/17 15:34 11/10/17 15:34 General appearance: Present: mild distress, A&O X 3, morbidly obese - Respiratory Respiratory exam: Present: CTAB. Absent: accessory muscle use, rales, rhonchi, wheezes Additional comments: Normal WOB - Cardiovascular Cardiovascular exam: Present: RRR, +S1, +S2. Absent: diastolic murmur, gallop, rubs, systolic murmur Additional comments: No BLE edema - GI/Abdominal GI/Abdominal exam: Present: normal bowel sounds, soft. Absent: distended, hepatomegaly, mass, splenomegaly Additional comments: Moderate diffuse TTP across epigastrium. - Psychiatric Psychiatric exam: Present: normal affect, normal mood. Absent: anxious, depressed - Skin Skin exam: Present: dry, intact, warm. Absent: cyanosis, rash Internal Medicine: Result - Labs CBC & Chem 7: 11/10/17 00:40 11/10/17 00:40 Labs: Short CBC 11/10/17 Range/Units 00:40 WBC 10.2 (4.3-11.1) K/mcL Hgb 10.5 L (11.5-15.4) g/dL Hct 32.2 L (35.3-44.9) % Plt Count 220 (140-400) K/mcL Neutrophils # 8.7 (1.6-8.9) K/mcL BMP 11/10/17 00:40 Sodium 138 Potassium 4.2 Chloride 104 Carbon Dioxide 25 BUN 27 H Creatinine 1.67 H Glucose 200 H Calcium 9.5 Cardiac Enzymes 11/09/17 11/10/17 11/10/17 Range/Units 19:09 00:40 08:03 Troponin I 0.03 0.05 H* 0.04 H* (< 0.04) ng/mL Liver Function 11/09/17 11/10/17 Range/Units 20:19 00:40 Total Bilirubin 0.3 0.3 (0.3-1.0) mg/dL Direct Bilirubin 0.1 (0.0-0.2) mg/dL AST 12 L 16 (13-39) Units/L ALT 12 11 (7-52) Units/L Alkaline Phosphatase 68 73 (34-104) Units/L Albumin 3.2 L 3.3 L (3.5-5.7) g/dL - ABG Interpretation ABG results: PT/INR, D-dimer PT 22.3 Seconds (9.4-12.1) H 11/10/17 00:40 D-Dimer 703 ng/mLFEU (0-500) H 11/09/17 11:23 - Impressions Impressions Echocardiogram 11/10/17 15:26 Impressions: LVEF 55%. Mild left ventricular diastolic dysfunction. Mildly dilated right ventricle. Severely dilated left atrium. Moderately dilated right atrium. There is mild to moderate pericardial effusion present. Worse than previous ECHO when compared No definitive ECHO features of tamponade, early features cannot be ruled out. Please correlate clinically Left Ventricular Wall Motion: Rest Echo Findings All wall segments showed normal motion. Findings: Study Quality * Technically adequate exam. ECG Findings * Normal sinus rhythm. Left Ventricle * LVEF 55%. * Mild left ventricular diastolic dysfunction. Right Ventricle * Mildly dilated right ventricle. Left Atrium * Severely dilated left atrium. Right Atrium * Moderately dilated right atrium. Interatrial Septum * Interatrial septum not well evaluated. Aortic Valve * Trileaflet aortic valve. Mitral Valve * Trace mitral regurgitation. Tricuspid Valve * Tricuspid valve not well visualized. * Estimated RVSP is 26 mmHg. * Estimated RA pressure is 3 mmHg. * No pulmonary hypertension. Pulmonic Valve * Pulmonic valve not well visualized. Aorta * Normally sized aortic root. Pericardium * There is a moderate pericardial effusion present. * There is no echocardiographic evidence of tamponade. Consult Discharge Plan - Plan Referrals: Kaiden Hammer DO [Primary Care Provider] -
[2017-11-10] MEDS: (Mirabegron [Myrbetriq] 50 MG) PO SCH (20:40)
[2017-11-11] MEDS: Insulin LISPRO 300 UNITS/3 ML VIAL SQ SCH ×4 (01:27→17:22)
[2017-11-11] MEDS: 0.9 % Sodium Chloride 1,000 ML IVC SCH ×4 (01:30→20:07)
[2017-11-11] MEDS: *HR* OxyCODONE Immed Rel 5 MG TABLET PO PRN ×3 (01:31→20:06)
[2017-11-11 04:47] LABS: Basophils % 0.3 %; Eosinophils # 0.1 K/mcL (0.0-0.6); Eosinophils % 0.9 %; Hematocrit 29.5 % (35.3-44.9); Hemoglobin 9.2 g/dL (11.5-15.4); Immature Granulocytes % 1.1 % (0-4); Lymphocytes # 2.3 K/mcL (0.6-4.6); Lymphocytes % 21.1 %; Mean Corpuscular HGB Conc 31.2 g/dL (31.6-35.5); Mean Corpuscular Hemoglobin 30.5 pg (28.0-33.3); Mean Corpuscular Volume 97.7 fL (83.0-100.0); Mean Platelet Volume 10.5 fL (9.4-12.4); Monocytes # 0.9 K/mcL (0.0-1.3); Monocytes % 8.5 %; Neutrophils # 7.2 K/mcL (1.6-8.9); Nucleated Red Blood Cells 0.3 /100 WBC (0); Platelet Count 207 K/mcL (140-400); Red Blood Count 3.02 M/mcL (3.82-4.97); Red Cell Distribution Width 14.1 % (11.5-14.5); Segmented Neutrophils % 68.1 %
[2017-11-11 04:52] LABS: INR 2.3; Prothrombin Time 25.6 Seconds (9.4-12.1)
[2017-11-11 05:03] LABS: Calcium 8.5 mg/dL (8.6-10.3); Potassium 4.1 mEq/L (3.5-5.1)
[2017-11-11] MEDS ORDERED: Regadenoson 0.4 MG/5 ML SYRINGE IVP ONE (06:16)
[2017-11-11] MEDS: Ranolazine 500 MG TAB.ER.12H PO SCH ×2 (08:08→20:05)
[2017-11-11] MEDS: Cholecalciferol (D-3) 1,000 UNIT TABLET PO SCH (08:08)
[2017-11-11] MEDS: Diltiazem CD (24hr) 240 MG CAPSULE PO SCH (08:08)
[2017-11-11] MEDS: Venlafaxine XR (24 HR) 75 MG CAP.ER.24H PO SCH (08:08)
[2017-11-11] MEDS: Isosorbide MONOnitrate (24 HR) 60 MG TAB.ER.24H PO SCH (08:08)
[2017-11-11] MEDS: (Linagliptin [Tradjenta] 5 MG) PO SCH (08:09)
--- NOTE | 2017-11-11 10:14 | General Surgery Progress Note ---
<Karlie Kaplan - Last Filed: 11/11/17 10:11> Date of Encounter: 11/11/17 Time of Encounter: 10:11 - Assessment and Plan (1) RUQ abdominal pain Current Visit: Yes Status: Acute Ultrasound gallbladder shows cholelithiasis improbable cholecystitis. Incidental finding of an enlarged adrenal mass on the right which can be followed up as an outpatient per the primary team. No patient states she was able to tolerate her for liquid diet this morning but right upper quadrant discomfort remains. WBC remains within normal limits. Her liver function as normal. Her bilirubin is normal. Patient was scheduled for a nuclear medicine stress test this a.m. however this is unable to be completed. Of note her recent echocardiogram is reviewed and reveal LVEF of 55%, mild diastolic dysfunction, mildly dilated right ventricle, severely dilated left atrium, moderately dilated right atrium, mild to moderate pericardial effusion is present which is worse than compared with the previous echo. There is no evidence of tampering on. Plan: Patient is recommended to complete cardiovascular workout prior to any surgical intervention given echo results above and need for stress test per primary team. Cardiovascular risk stratification will be required prior to any surgical intervention. We will continue to follow along with you. Surgical intervention timing and further recommendations pending continuation/resolution of patient symptoms and cardiovascular workup/recommendations. -Continue supportive care and discomfort management -may advance to cardiac diet if patient tolerates full liquids -further recommendations pending (2) Cholecystitis Current Visit: Yes Status: Suspected See a/p above Subjective Patient reports: still having pain, pain is less (States slightly less with medication), voiding w/o difficulty, flatus, no bowel movement, afebrile Narrative: Amie denies n/v. She states her RUQ pain is controlled with pain medication. She was able to tolerate a full liquid diet this am. Objective Vital Signs - Last 8 Hours Temp Pulse Resp BP Pulse Ox 11/11/17 07:00 98.2 F 71 16 146/74 97 11/11/17 04:17 98.0 F 78 16 121/67 93 Intake and Output 11/10/17 11/11/17 11/11/17 23:59 07:59 15:59 Intake Total 1000 / 1000 Balance 1000 / 1000 Intake: IV Fluids 1000 / 1000 0.9 % Sodium Chloride 1,000 ML 1000 / 1000 @ 75 mls/hr IVC .[id number] [facility] Rx #:[id number] Other: Meal Breakfast Percent of Meal Consumed 100% # Voids 1 Blood Glucose* 200 145 - General physical appearance no distress, moderate pain, obese - Eyes normal ocular movement - ENT atraumatic, normocephalic - Neck Neck exam: trachea midline, no venous distension - Respiratory normal expansion, normal respiratory effort, clear to auscultation - Cardiovascular Cardiovascular exam: Present: RRR, distant heart sounds - Abdomen Abdomen: Present: bowel sounds present, soft, tender Abdominal Tenderness: RUQ Hernia: none - Integumentary no abnormal pigmentation - Neurologic normal coordination, normal sensation - Musculoskeletal normal gait, normal posture - Psychiatric oriented to time, oriented to person, oriented to place, speech is normal, memory intact - Labs 11/11/17 03:29 11/11/17 03:29 Diabetes panel 11/11/17 Range/Units 03:29 Sodium 138 (136-145) mEq/L Potassium 4.1 (3.5-5.1) mEq/L Chloride 103 (98-107) mEq/L Carbon Dioxide 29 (23-29) mEq/L BUN 31 H (8-23) mg/dL Creatinine 2.28 H (0.60-1.20) mg/dL Glucose 158 H (70-105) mg/dL Calcium 8.5 L (8.6-10.3) mg/dL Calcium panel 11/11/17 Range/Units 03:29 Calcium 8.5 L (8.6-10.3) mg/dL Pituitary panel 11/11/17 Range/Units 03:29 Sodium 138 (136-145) mEq/L Potassium 4.1 (3.5-5.1) mEq/L Chloride 103 (98-107) mEq/L Carbon Dioxide 29 (23-29) mEq/L BUN 31 H (8-23) mg/dL Creatinine 2.28 H (0.60-1.20) mg/dL Glucose 158 H (70-105) mg/dL Calcium 8.5 L (8.6-10.3) mg/dL Adrenal panel 11/11/17 Range/Units 03:29 Sodium 138 (136-145) mEq/L Potassium 4.1 (3.5-5.1) mEq/L Chloride 103 (98-107) mEq/L Carbon Dioxide 29 (23-29) mEq/L BUN 31 H (8-23) mg/dL Creatinine 2.28 H (0.60-1.20) mg/dL Glucose 158 H (70-105) mg/dL Calcium 8.5 L (8.6-10.3) mg/dL Consult Discharge Plan - Plan Referrals: Kaiden Hammer DO [Primary Care Provider] - <Sebas Shepardmerced Quezada - Last Filed: 11/11/17 12:28> Date of Encounter: 11/11/17 - Assessment and Plan (1) RUQ abdominal pain Current Visit: Yes Status: Acute Objective Vital Signs - Last 8 Hours Temp Pulse Resp BP Pulse Ox 11/11/17 11:25 97.9 F 76 16 105/62 95 11/11/17 07:00 98.2 F 71 16 146/74 97 Intake and Output 11/10/17 11/11/17 11/11/17 23:59 07:59 15:59 Intake Total 1000 / 1000 Balance 1000 / 1000 Intake: IV Fluids 1000 / 1000 0.9 % Sodium Chloride 1,000 ML 1000 / 1000 @ 75 mls/hr IVC .[id number] [facility] Rx #:[id number] Other: Meal Breakfast Percent of Meal Consumed 100% # Voids 1 Blood Glucose* 200 145 211 - Labs 11/11/17 03:29 11/11/17 03:29 Diabetes panel 11/11/17 Range/Units 03:29 Sodium 138 (136-145) mEq/L Potassium 4.1 (3.5-5.1) mEq/L Chloride 103 (98-107) mEq/L Carbon Dioxide 29 (23-29) mEq/L BUN 31 H (8-23) mg/dL Creatinine 2.28 H (0.60-1.20) mg/dL Glucose 158 H (70-105) mg/dL Calcium 8.5 L (8.6-10.3) mg/dL Calcium panel 11/11/17 Range/Units 03:29 Calcium 8.5 L (8.6-10.3) mg/dL Pituitary panel 11/11/17 Range/Units 03:29 Sodium 138 (136-145) mEq/L Potassium 4.1 (3.5-5.1) mEq/L Chloride 103 (98-107) mEq/L Carbon Dioxide 29 (23-29) mEq/L BUN 31 H (8-23) mg/dL Creatinine 2.28 H (0.60-1.20) mg/dL Glucose 158 H (70-105) mg/dL Calcium 8.5 L (8.6-10.3) mg/dL Adrenal panel 11/11/17 Range/Units 03:29 Sodium 138 (136-145) mEq/L Potassium 4.1 (3.5-5.1) mEq/L Chloride 103 (98-107) mEq/L Carbon Dioxide 29 (23-29) mEq/L BUN 31 H (8-23) mg/dL Creatinine 2.28 H (0.60-1.20) mg/dL Glucose 158 H (70-105) mg/dL Calcium 8.5 L (8.6-10.3) mg/dL - Attending Attestation I have personally seen and examined the patient. I have reviewed pertinent labs , imaging, progress notes, including this one. I agree with the above assessment and plan and wish to include the following... 67F with gallbladder sludge and gallbladder wall thickening, now with improvement in her pain (8/10) and tolerating liquids. will await results of her cardiac testing prior to determining day/timing of OR.
[2017-11-11] MEDS: Aspirin Enteric Coated 81 MG Tablet PO SCH (17:22)
[2017-11-11] MEDS ORDERED: *HR* Warfarin 5 MG TABLET PO ONE (18:00)
[2017-11-11] MEDS: (Mirabegron [Myrbetriq] 50 MG) PO SCH (20:11)
--- NOTE | 2017-11-11 20:31 | Internal Med Progress Note ---
Date of Encounter: 11/11/17 Time of Encounter: 20:29 - Assessment and plan (1) RUQ abdominal pain Current Visit: Yes Status: Acute Assessment and plan: Ultrasound with suspected cholecystitis. Surgery consulted; appreciate input. Consider inpatient vs outpatient cholecystecomy based on pain control and tolerance of diet. Will defer surgery for now due to abnormal ECHO and elevated troponins; stress ECHO performed first. Continue full liquid diet. NPO after midnight. Pain control. (2) Cholecystitis Current Visit: Yes Status: Suspected Assessment and plan: As per above. (3) Atypical chest pain Current Visit: Yes Status: Acute Assessment and plan: Chest pain resolved. Troponin trended down to 0.04. Abnormal ECHO results. Cardiology consulted; appreciate input. Schedule for NM stress test tomorrow. (4) Type II diabetes mellitus Current Visit: Yes Status: Chronic Assessment and plan: Continue accuchecks and SSI QID AC/HS. Qualifiers: Diabetes mellitus complication status: with kidney complications Diabetes mellitus complication detail: with chronic kidney disease Diabetes mellitus nursing home insulin use: with nursing home use Chronic kidney disease stage: stage 3 (moderate) Qualified Code(s): E11.22 - Type 2 diabetes mellitus with diabetic chronic kidney disease; N18.3 - Chronic kidney disease, stage 3 ( moderate); N18.3 - Chronic kidney disease, stage 3 (moderate); Z79.4 - skilled nursing (current) use of insulin; Z79.4 - technician terminal and repeater (current) use of insulin; Z79.4 - technician terminal and repeater (current) use of insulin; Z79.4 - skilled nursing (current) use of insulin (5) Atrial fibrillation Current Visit: Yes Status: Chronic Assessment and plan: Continue home diltiazem and coumadin. Qualifiers: Atrial fibrillation type: unspecified Qualified Code(s): I48.91 - Unspecified atrial fibrillation (6) Anticoagulated on Coumadin Current Visit: Yes Status: Chronic Assessment and plan: Therapeutic. Continue coumadin. Check PT/INR daily. Pharmacy to dose coumadin. (7) CKD (chronic kidney disease) Current Visit: Yes Status: Chronic Assessment and plan: Cr at baseline. Continue to monitor. Qualifiers: Chronic kidney disease stage: stage 2 (mild) Qualified Code(s): N18.2 - Chronic kidney disease, stage 2 (mild) (8) DVT prophylaxis Current Visit: Yes Status: Acute Assessment and plan: On coumadin. - Time Spent With Patient less than 15 minutes - Subjective Interval history: Patient had no acute events overnight. She continues to have significant abdominal pain this AM, only minimally improved from yesterday. No pain in chest. She denies N/V, and is tolerating clear liquid diet. She has no new complaints. - Constitutional Vitals: Temp Pulse Resp BP Pulse Ox 98.4 F 76 15 100/63 96 11/11/17 19:53 11/11/17 19:53 11/11/17 19:53 11/11/17 19:53 11/11/17 19:53 General appearance: Present: mild distress, A&O X 3, morbidly obese - Respiratory Respiratory exam: Present: CTAB. Absent: accessory muscle use, rales, rhonchi, wheezes Additional comments: Normal WOB - Cardiovascular Cardiovascular exam: Present: RRR, +S1, +S2. Absent: diastolic murmur, gallop, rubs, systolic murmur Additional comments: Trace BLE edema - GI/Abdominal GI/Abdominal exam: Present: normal bowel sounds, soft. Absent: distended, hepatomegaly, mass, splenomegaly Additional comments: Moderate TTP diffusely across epigastrium - Psychiatric Psychiatric exam: Present: normal affect, normal mood. Absent: anxious, depressed - Skin Skin exam: Present: dry, intact, warm. Absent: cyanosis, rash Internal Medicine: Result - Labs CBC & Chem 7: 11/11/17 03:29 11/11/17 03:29 Labs: Short CBC 11/11/17 Range/Units 03:29 WBC 10.6 (4.3-11.1) K/mcL Hgb 9.2 L (11.5-15.4) g/dL Hct 29.5 L (35.3-44.9) % Plt Count 207 (140-400) K/mcL Neutrophils # 7.2 (1.6-8.9) K/mcL BMP 11/11/17 03:29 Sodium 138 Potassium 4.1 Chloride 103 Carbon Dioxide 29 BUN 31 H Creatinine 2.28 H Glucose 158 H Calcium 8.5 L - ABG Interpretation ABG results: PT/INR, D-dimer PT 25.6 Seconds (9.4-12.1) H 11/11/17 03:29 D-Dimer 703 ng/mLFEU (0-500) H 11/09/17 11:23 Consult Discharge Plan - Plan Referrals: Kaiden Hammer DO [Primary Care Provider] -
[2017-11-12] MEDS: Insulin LISPRO 300 UNITS/3 ML VIAL SQ SCH ×4 (00:46→16:40)
[2017-11-12] MEDS: 0.9 % Sodium Chloride 1,000 ML IVC SCH ×2 (04:25→11:28)
[2017-11-12] MEDS: *HR* OxyCODONE Immed Rel 5 MG TABLET PO PRN ×2 (04:30→16:18)
[2017-11-12 05:12] LABS: INR 2.7; Prothrombin Time 29.3 Seconds (9.4-12.1)
[2017-11-12 05:28] LABS: Calcium 8.2 mg/dL (8.6-10.3); Potassium 4.3 mEq/L (3.5-5.1)
[2017-11-12] MEDS ORDERED: Regadenoson 0.4 MG/5 ML SYRINGE IVP ONE (06:32)
--- NOTE | 2017-11-12 07:28 | General Surgery Progress Note ---
<Karlie Kaplan - Last Filed: 11/12/17 10:21> Date of Encounter: 11/12/17 Time of Encounter: 07:28 - Assessment and Plan (1) RUQ abdominal pain Current Visit: Yes Status: Acute Ultrasound gallbladder shows cholelithiasis improbable cholecystitis. Incidental finding of an enlarged adrenal mass on the right which can be followed up as an outpatient per the primary team. No patient states she was able to tolerate her for liquid diet this morning but right upper quadrant discomfort remains. WBC remains within normal limits. Her liver function as normal. Her bilirubin is normal. 2-day NM stress beginning today given her recent echocardiogram is reviewed and reveal LVEF of 55%, mild diastolic dysfunction, mildly dilated right ventricle, severely dilated left atrium, moderately dilated right atrium, mild to moderate pericardial effusion is present which is worse than compared with the previous echo; no evidence of tampanode. She does have a history of a-fib and ASHD. Plan: -timing of surgical intervention, this admission, pending cardiovascular workup and risk stratification. -Continue supportive care and discomfort management -may advance to cardiac diet if patient tolerates full liquids; surgery will make NPO status pending surgical intervention timing -we will continue to follow along with you (2) Cholecystitis Current Visit: Yes Status: Suspected See a/p above (3) ASHD (arteriosclerotic heart disease) Current Visit: Yes Status: Acute Management per primary team and cardiology who has been consulted (4) Pericardial effusion Current Visit: Yes Status: Acute (5) Atrial fibrillation Current Visit: Yes Status: Chronic Qualifiers: Atrial fibrillation type: unspecified Qualified Code(s): I48.91 - Unspecified atrial fibrillation (6) Anticoagulated on Coumadin Current Visit: Yes Status: Chronic (7) CKD (chronic kidney disease) Current Visit: Yes Status: Chronic Qualifiers: Chronic kidney disease stage: stage 2 (mild) Qualified Code(s): N18.2 - Chronic kidney disease, stage 2 (mild) Subjective Patient reports: no new complaints, still having pain, tolerating liquids well, voiding w/o difficulty, flatus, bowel movement, afebrile Objective Vital Signs - Last 8 Hours Temp Pulse Resp BP Pulse Ox 11/12/17 06:46 98.0 F 73 18 118/70 93 11/12/17 04:29 97.5 F L 78 16 104/65 93 11/12/17 00:41 98.4 F 79 15 121/71 94 Intake and Output 11/11/17 11/11/17 11/12/17 15:59 23:59 07:59 Intake Total 1950 / 1950 1000 / 1000 Output Total 0 / 0 250 / 250 0 / 0 Balance 0 / 0 1700 / 1700 1000 / 1000 Intake: IV Fluids 950 / 950 1000 / 1000 0.9 % Sodium Chloride 1,000 ML 950 / 950 1000 / 1000 @ 125 mls/hr IVC .Q8H ASHA Rx#: [id number] Oral 1000 / 1000 0 / 0 Output: Urine 0 / 0 250 / 250 0 / 0 Other: Meal Breakfast Percent of Meal Consumed 100% # Bowel Movements 0 0 Weight 127.006 kg Blood Glucose* 211 171 142 Patient Weight 11/12/17 23:59 Weight 127.006 kg - General physical appearance no distress, moderate pain - ENT atraumatic, normocephalic - Neck Neck exam: trachea midline, no venous distension - Respiratory other (decreased) - Cardiovascular Cardiovascular exam: Present: distant heart sounds - Abdomen Abdomen: Present: bowel sounds present, soft, tender Abdominal Tenderness: RUQ Hernia: none - Integumentary no growths, no abnormal pigmentation - Neurologic CN 2-12 grossly intact, normal coordination, normal sensation - Musculoskeletal normal gait, normal posture - Psychiatric oriented to time, oriented to person, oriented to place, speech is normal, memory intact - Labs 11/11/17 03:29 11/12/17 04:39 Diabetes panel 11/12/17 Range/Units 04:39 Sodium 137 (136-145) mEq/L Potassium 4.3 (3.5-5.1) mEq/L Chloride 105 (98-107) mEq/L Carbon Dioxide 26 (23-29) mEq/L BUN 37 H (8-23) mg/dL Creatinine 2.91 H (0.60-1.20) mg/dL Glucose 150 H (70-105) mg/dL Calcium 8.2 L (8.6-10.3) mg/dL Calcium panel 11/12/17 Range/Units 04:39 Calcium 8.2 L (8.6-10.3) mg/dL Pituitary panel 11/12/17 Range/Units 04:39 Sodium 137 (136-145) mEq/L Potassium 4.3 (3.5-5.1) mEq/L Chloride 105 (98-107) mEq/L Carbon Dioxide 26 (23-29) mEq/L BUN 37 H (8-23) mg/dL Creatinine 2.91 H (0.60-1.20) mg/dL Glucose 150 H (70-105) mg/dL Calcium 8.2 L (8.6-10.3) mg/dL Adrenal panel 11/12/17 Range/Units 04:39 Sodium 137 (136-145) mEq/L Potassium 4.3 (3.5-5.1) mEq/L Chloride 105 (98-107) mEq/L Carbon Dioxide 26 (23-29) mEq/L BUN 37 H (8-23) mg/dL Creatinine 2.91 H (0.60-1.20) mg/dL Glucose 150 H (70-105) mg/dL Calcium 8.2 L (8.6-10.3) mg/dL Consult Discharge Plan - Plan Referrals: Kaiden Hammer DO [Primary Care Provider] - <Rajendra Shepard - Last Filed: 11/12/17 11:49> Date of Encounter: 11/12/17 - Assessment and Plan (1) RUQ abdominal pain Current Visit: Yes Status: Acute Objective Vital Signs - Last 8 Hours Temp Pulse Resp BP Pulse Ox 11/12/17 10:27 98.1 F 87 18 145/76 92 11/12/17 07:30 93 11/12/17 06:46 98.0 F 73 18 118/70 93 11/12/17 04:29 97.5 F L 78 16 104/65 93 Intake and Output 11/11/17 11/12/17 11/12/17 23:59 07:59 15:59 Intake Total 1950 / 1950 1000 / 1000 0 / 0 Output Total 250 / 250 200 / 200 100 / 100 Balance 1700 / 1700 800 / 800 -100 / -100 Intake: IV Fluids 950 / 950 1000 / 1000 0.9 % Sodium Chloride 1,000 ML 950 / 950 1000 / 1000 @ 125 mls/hr IVC .Q8H ASHA Rx#: [id number] Oral 1000 / 1000 0 / 0 0 / 0 Output: Urine 250 / 250 200 / 200 100 / 100 Other: Meal NPO Percent of Meal Consumed 0% # Bowel Movements 0 0 Weight 127.006 kg Blood Glucose* 171 142 Patient Weight 11/12/17 23:59 Weight 127.006 kg - Labs 11/11/17 03:29 11/12/17 04:39 Diabetes panel 11/12/17 Range/Units 04:39 Sodium 137 (136-145) mEq/L Potassium 4.3 (3.5-5.1) mEq/L Chloride 105 (98-107) mEq/L Carbon Dioxide 26 (23-29) mEq/L BUN 37 H (8-23) mg/dL Creatinine 2.91 H (0.60-1.20) mg/dL Glucose 150 H (70-105) mg/dL Calcium 8.2 L (8.6-10.3) mg/dL Calcium panel 11/12/17 Range/Units 04:39 Calcium 8.2 L (8.6-10.3) mg/dL Pituitary panel 11/12/17 Range/Units 04:39 Sodium 137 (136-145) mEq/L Potassium 4.3 (3.5-5.1) mEq/L Chloride 105 (98-107) mEq/L Carbon Dioxide 26 (23-29) mEq/L BUN 37 H (8-23) mg/dL Creatinine 2.91 H (0.60-1.20) mg/dL Glucose 150 H (70-105) mg/dL Calcium 8.2 L (8.6-10.3) mg/dL Adrenal panel 11/12/17 Range/Units 04:39 Sodium 137 (136-145) mEq/L Potassium 4.3 (3.5-5.1) mEq/L Chloride 105 (98-107) mEq/L Carbon Dioxide 26 (23-29) mEq/L BUN 37 H (8-23) mg/dL Creatinine 2.91 H (0.60-1.20) mg/dL Glucose 150 H (70-105) mg/dL Calcium 8.2 L (8.6-10.3) mg/dL - Attending Attestation I have personally seen and examined the patient. I have reviewed pertinent labs , imaging, progress notes, including this one. I agree with the above assessment and plan and wish to include the following... 67F with cholecystitis; awaiting completion of cardiac assessment prior to surgery;
[2017-11-12] MEDS: Venlafaxine XR (24 HR) 75 MG CAP.ER.24H PO SCH (11:26)
[2017-11-12] MEDS: Isosorbide MONOnitrate (24 HR) 60 MG TAB.ER.24H PO SCH (11:27)
[2017-11-12] MEDS: Diltiazem CD (24hr) 240 MG CAPSULE PO SCH (11:27)
[2017-11-12] MEDS: Cholecalciferol (D-3) 1,000 UNIT TABLET PO SCH (11:27)
[2017-11-12] MEDS: Ranolazine 500 MG TAB.ER.12H PO SCH ×2 (11:27→20:24)
[2017-11-12] MEDS: (Linagliptin [Tradjenta] 5 MG) PO SCH (11:28)
--- NOTE | 2017-11-12 13:07 | Internal Med Progress Note ---
Date of Encounter: 11/12/17 Time of Encounter: 14:46 - Assessment and plan (1) Atypical chest pain Current Visit: Yes Status: Acute Assessment and plan: Chest pain resolved. Troponin trended down to 0.04. Abnormal ECHO results. Cardiology consulted; appreciate input. Schedule for NM stress test 2nd phase tomorrow. NPO from [facility] (2) DVT prophylaxis Current Visit: Yes Status: Acute Assessment and plan: On coumadin. (3) Pericardial effusion Current Visit: Yes Status: Acute Assessment and plan: per ECHO Cardio eval pending, no clincal features of tamponade Follow cardio eval (4) RUQ abdominal pain Current Visit: Yes Status: Acute Assessment and plan: Ultrasound with suspected cholecystitis. Surgery consulted; appreciate input. Consider inpatient vs outpatient cholecystecomy based on pain control and tolerance of diet. Will defer surgery for now due to abnormal ECHO and elevated troponins; stress ECHO performed first. Continue full liquid diet. NPO after midnight. Pain control. (5) Anticoagulated on Coumadin Current Visit: Yes Status: Chronic Assessment and plan: Therapeutic. Continue coumadin. Check PT/INR daily. Pharmacy to dose coumadin. (6) Atrial fibrillation Current Visit: Yes Status: Chronic Assessment and plan: Continue home diltiazem and coumadin. Qualifiers: Atrial fibrillation type: unspecified Qualified Code(s): I48.91 - Unspecified atrial fibrillation (7) CKD (chronic kidney disease) Current Visit: Yes Status: Chronic Assessment and plan: Cr at baseline. Continue to monitor. Qualifiers: Chronic kidney disease stage: stage 2 (mild) Qualified Code(s): N18.2 - Chronic kidney disease, stage 2 (mild) (8) Type II diabetes mellitus Current Visit: Yes Status: Chronic Assessment and plan: Continue accuchecks and SSI QID AC/HS. Qualifiers: Diabetes mellitus complication status: with kidney complications Diabetes mellitus complication detail: with chronic kidney disease Diabetes mellitus fci insulin use: with buttermaker helper use Chronic kidney disease stage: stage 3 (moderate) Qualified Code(s): E11.22 - Type 2 diabetes mellitus with diabetic chronic kidney disease; N18.3 - Chronic kidney disease, stage 3 ( moderate); N18.3 - Chronic kidney disease, stage 3 (moderate); Z79.4 - shelter (current) use of insulin; Z79.4 - shelter (current) use of insulin; Z79.4 - shelter (current) use of insulin; Z79.4 - shelter (current) use of insulin (9) Cholecystitis Current Visit: Yes Status: Suspected Assessment and plan: As per above. - Subjective Interval history: Seen and evaluated at bedside Just back from Stress test No new complains States abdominal pain is improved Surgery is following - Constitutional Vitals: Temp Pulse Resp BP Pulse Ox 98.1 F 87 18 145/76 92 11/12/17 10:27 11/12/17 10:27 11/12/17 10:27 11/12/17 10:27 11/12/17 10:27 General appearance: Present: A&O X 3, morbidly obese, pleasant, no acute distress - Head Head exam: Present: atraumatic, normocephalic - Eye Eye exam: Present: PERRL, conjuntiva pink, sclera anicteric Pupils: Present: PERRL - Neck Neck exam general surgery: Present: supple, trachea midline. Absent: lymphadenopathy - Respiratory Respiratory exam: Present: CTAB. Absent: accessory muscle use, rales, rhonchi, wheezes - Cardiovascular Cardiovascular exam: Present: RRR, +S1, +S2. Absent: diastolic murmur, gallop, rubs, systolic murmur - GI/Abdominal GI/Abdominal exam: Present: normal bowel sounds, soft, no peritoneal signs. Absent: distended, tenderness - Extremities Exam Extremities exam: Present: warm, radial pulses palpable and symmetrical. Absent : calf tenderness, cyanotic, pedal edema - Neurological Exam Neurological exam: Present: alert, CN II-XII intact, oriented X3, no focal deficits. Absent: pronater drift, facial droop, speech deficit - Skin Skin exam: Present: dry, intact Internal Medicine: Result - Labs CBC & Chem 7: 11/11/17 03:29 11/12/17 04:39 Labs: BMP 11/12/17 04:39 Sodium 137 Potassium 4.3 Chloride 105 Carbon Dioxide 26 BUN 37 H Creatinine 2.91 H Glucose 150 H Calcium 8.2 L - ABG Interpretation ABG results: PT/INR, D-dimer PT 29.3 Seconds (9.4-12.1) H 11/12/17 04:39 D-Dimer 703 ng/mLFEU (0-500) H 11/09/17 11:23 Consult Discharge Plan - Plan Referrals: Kaiden Hammer DO [Primary Care Provider] -
--- NOTE | 2017-11-12 15:05 | Cardiology Consult Note ---
<Wade Recio - Last Filed: 11/12/17 15:45> Date of Encounter: 11/12/17 Time of Encounter: 08:30 Assessment and Plan (1) Cholecystitis Current Visit: Yes Status: Suspected Per Cardiology: US: IMPRESSION: Cholelithiasis and probable cholecystitis. Enlarging right adrenal mass. Recommend follow-up CT adrenal protocol and/or MRI adrenal protocol. Management per surgery, potential surgery this upcoming Saturday. (2) Elevated troponin Current Visit: Yes Status: Acute Per Cardiology: Initially negative troponins and now with mild adynamic troponin elevations of 0.04 and 0.05 in setting of EDD on CKD and cholecystitis. Atypical chest pain symptoms. Stress test currently in process per primary service, will await results. No cardiac rehabilitation consult warranted at this time. Echo showed preserved EF, NSWMA. VQ scan showed low probability for PE. (3) CAD (coronary artery disease) Current Visit: Yes Status: Chronic Per Cardiology: Last [facility] 10/2011: Findings/Interventions: Left Ventriculography - There was normal size and contractility of the left ventricle. Left ventricular ejection fraction was 60%. Left Main Coronary Artery - There were no obstructing lesions in the left main coronary artery. Blood flow appeared normal. Left Anterior Descending Artery - The pre-existing stent in the mid left anterior descending artery had 25% to 30% in-stent restenosis from the proximal to distal portion. The pre-existing stent in the proximal first diagonal artery was patent. Left Circumflex Artery - The circumflex artery gave rise to two obtuse marginal arteries. There were luminal irregularities from the proximal to mid circumflex artery. Right Coronary Artery - The right coronary artery was dominant to the posterior circulation. There were luminal irregularities from the proximal to mid right coronary artery. Impression: 25 to 30% in-stent restenosis of the pre-existing stent in the mid left anterior descending artery. 25 to 30% in-stent restenosis of the pre-existing stent in the proximal first diagonal artery. Minimal atherosclerotic coronary artery disease. Normal left ventricular size and contractility. The left ventricular ejection fraction was 60%. On aspirin, statin, ARB, long-acting nitrate, Ranexa. No contraindication for beta [place] noted, will add low-dose beta [place]in. Qualifiers: Coronary Disease-Associated Artery/Lesion type: [place] artery [place] vs. transplanted heart: [place] heart Associated angina: angina presence unspecified Qualified Code(s): I25.10 - Atherosclerotic heart disease of [place] coronary artery without angina pectoris (4) Pericardial effusion Current Visit: Yes Status: Acute Per Cardiology: ECHO: There is mild to moderate pericardial effusion present. Worse than previous ECHO when compared No definitive ECHO features of tamponade, early features cannot be ruled out. Please correlate clinically Patient appears clinically stable with no evidence of tachycardia or hypotension. (5) Atrial fibrillation Current Visit: Yes Status: Chronic Per Cardiology: Past history of paroxysmal atrial fibrillation. Currently sinus rhythm. On calcium channel [place]. Qualifiers: Atrial fibrillation type: unspecified Qualified Code(s): I48.91 - Unspecified atrial fibrillation (6) Anticoagulated on Coumadin Current Visit: Yes Status: Chronic Per Cardiology: Apparent history of DVT. History of paroxysmal atrial fibrillation. Anticoagulated with Coumadin. Current INR 2.7. Anticipate may need to be held prior to any surgery. (7) EDD (acute kidney injury) Current Visit: Yes Status: Acute Per Cardiology: Per review of records it appears patient has CK D stage IIIB, currently appears to have acute kidney injury. We will discontinue ARB. Monitor kidney function closely. Avoid nephrotoxins. Consider nephrology consult if deemed clinically appropriate. We will monitor blood pressure with the addition of beta [place]. (8) Preop cardiovascular exam Current Visit: Yes Status: Acute Per Cardiology: Potential surgery later this week. Further examinations pending stress test results-- currently in process of 2 day stress test. Discussion w patient/family: The assessment and plan as outlined above was discussed with the patient and/or family members who expressed understanding and agreement. All questions were answered. Thank you for involving us in the care of your patient. Please call with any questions. History of Present Illness Consult date: 11/12/17 Requesting physician: Rajendra Shepard Consult reason: Trops, effusion Chief complaint: Right abdominal pain and right-sided chest pain History of present illness: Ms. Dawn is a 67 year old female with a relevant past medical history of paroxysmal atrial fibrillation, CAD, obstructive sleep apnea, diabetes mellitus , hyperlipidemia, hypertension, anemia, GERD, hypothyroidism, history of DVT, fibromyalgia, CHF, CKD. Cardiology consult for mild troponin elevation, concerns of effusion on echo, and preoperative risk stratification. Patient reports over the past one week right upper quadrant discomfort/pain. She also reports intermittent episodes of right-sided chest discomfort. Patient denies any worsening fatigue from baseline. She denies any significant increasing short of breath at rest or with exertion. She denies any palpitations, dizziness, syncope, falls. Denies any active bleeding or blood loss. Reports right-sided chest pain symptoms have now resolved. Past Med Surg Social Fam HX - Past Medical History Source: patient, old records reviewed Medical history: atrial fibrillation, cancer, DVT, diabetes, GERD, hypertension , osteoporosis, renal disease, thyroid disease, other Psychiatric history: anxiety, depression - Past Surgical History Surgical History: angioplasty/stent, breast surgery, hysterectomy, orthopedic, other - Social History Smoking Status: Never smoker Smokeless Tobacco Status: No Alcohol use: none Drug use: none - Family History Mother Living Status: Hx Family Cardiac Disorders: Yes Hx Family Respiratory Disorders: No Hx Family Cancer: Yes Hx Family GI Disorders: No Hx Family Endocrine Disorder: No Hx Family Neuromuscular Disorders: No Hx Family Neurologic Disorders: No Hx Family HEENT Disorders: No Hx Family Autoimmune Disorders: No Hx Family Medical Disorders: Yes (brain aneurysm) Father Living Status: Hx Family Medical Disorders: Yes ("nosebleed from coumadin") Medications and Allergies Meclizine [Antivert] 25 mg PO AD PRN 06/10/15 [History] Aspirin [Adult Low Dose Aspirin EC] 81 mg PO QPM 07/18/15 [History] Cyanocobalamin (Vitamin B-12) [Vitamin B12] 2,500 mg PO QAM 07/18/15 [History] Diltiazem CD (24hr) [Cardizem CD] 240 mg PO QAM 07/18/15 [History] Isosorbide MONOnitrate (24 HR) [Imdur] 90 mg PO QAM 07/18/15 [History] Ranolazine [Ranexa] 1,000 mg PO BID 07/18/15 [History] Rosuvastatin Calcium [Crestor] 10 mg PO QPM 07/18/15 [History] Warfarin [Coumadin] 5 mg PO [id number] 07/18/15 [History] Glimepiride [Amaryl] 3 mg PO QAM 07/21/15 [History] Lansoprazole [Prevacid] 30 mg PO HS 07/21/15 [History] Multivitamin/Iron/Folic Acid [Centrum Complete Multivit Tab] 1 each PO QAM 07/21 [History] Saccharomyces Boulardii [Probiotic] 250 mg PO DAILY 07/21/15 [History] Warfarin [Coumadin] 2.5 mg PO TH 07/21/15 [History] Cholecalciferol (Vitamin D3) [Vitamin D] 1,000 unit PO DAILY 12/26/16 [History] Denosumab [Prolia (For Outpatient Infusion)] 60 mg SQ Q6M 12/26/16 [History] Losartan Potassium [Cozaar] 50 mg PO DAILY 12/26/16 [History] Mirabegron [Myrbetriq] 50 mg PO HS 12/26/16 [History] Desvenlafaxine Succinate [Desvenlafaxine Succinate ER] 150 mg PO DAILY 11/09/17 [History] Insulin LISPRO [HumaLOG] 10 unit SQ TIDWM 11/09/17 [History] Levothyroxine Sodium [Levothyroxine Sodium] 200 mcg PO DAILY 11/09/17 [History] Linagliptin [Tradjenta] 5 mg PO DAILY 11/09/17 [History] 3 Allergy/AdvReac Type Severity Reaction Status Date / Time sulfamethoxazole AdvReac See Verified 12/26/16 09:31 [From Bactrim] Comments trimethoprim [From Bactrim] AdvReac See Verified 12/26/16 09:31 Comments All Systems Review: The remainder of the systems were reviewed and are negative - Cardiovascular Cardiovascular: as per HPI, chest pain at rest - Gastrointestinal Gastrointestinal: abdominal pain Physical Examination Vital Signs, Last 4 Hours Temp Pulse Resp BP Pulse Ox 11/12/17 14:49 98.1 F 74 16 112/68 93 General: Conversant, No Apparent Distress HEENT: Atraumatic, Normocephaly, Mucus Membranes Moist Neck: No JVD, Normal carotid pulses Cardiac: Reg Rate and Rhythm, Normal S1 and S2, No Murmur Lungs: Normal Breath Sounds, No Wheeze, Rales, Rhonchi Neuro: Alert and responsive, No focal deficits noted Abdomen: Soft, Non-Tender, Other (obese) Skin: No rashes noted on visualized skin Musculoskeletal: No Chest Wall Tenderness Extremities: No Clubbing, No Cyanosis, No Edema, Normal Pulses Results 11/11/17 03:29 11/12/17 04:39 Lab Results Laboratory Tests 0311/09/17 11/09/17 11:23 11:23 19:09 Hgb 10.7 L Hct 32.0 L INR Creatinine 1.82 H Est GFR (Non-Af Amer) AST ALT Troponin I < 0.03 0.03 11/10/17 11/10/17 11/10/17 00:40 00:40 08:03 Hgb Hct INR Creatinine Est GFR (Non-Af Amer) AST 16 ALT 11 Troponin I 0.05 H* 0.04 H* 11/11/17 11/12/17 11/12/17 03:29 04:39 04:39 Hgb 9.2 L Hct 29.5 L INR 2.7 Creatinine 2.91 H Est GFR (Non-Af Amer) 16 L AST ALT Troponin I ITS Impressions Chest X-Ray 11/09/17 11:15 IMPRESSION: Cardiomegaly and central vascular congestion. D/ / Marcell Dejesus MD / Marcell Dejesus MD Interpreting Provider: Marcell Dejesus MD Pulmonary Perfusion Imaging 11/09/17 11:59 IMPRESSION: Low Probability for Pulmonary Embolus. No scintigraphic evidence of acute PE. D/ / Adis Ricardo MD / Adis Ricardo MD Interpreting Provider: Adis Ricardo MD Gallbladder Ultrasound 11/09/17 15:34 IMPRESSION: Cholelithiasis and probable cholecystitis. Enlarging right adrenal mass. Recommend follow-up CT adrenal protocol and/or MRI adrenal protocol. Enlarging right adrenal mass. Recommend follow-up CT adrenal protocol and/or MRI adrenal protocol. RECOMMENDATIONS: The findings were sent to the Radiology Results Communication Center at 6:52 pm on 11/09/2017to be communicated to a licensed caregiver. D/ / Lee Forman MD / Lee Forman MD Interpreting Provider: Lee Forman MD Echocardiogram 11/10/17 15:26 Impressions: LVEF 55%. Mild left ventricular diastolic dysfunction. Mildly dilated right ventricle. Severely dilated left atrium. Moderately dilated right atrium. There is mild to moderate pericardial effusion present. Worse than previous ECHO when compared No definitive ECHO features of tamponade, early features cannot be ruled out. Please correlate clinically Left Ventricular Wall Motion: Rest Echo Findings All wall segments showed normal motion. Findings: Study Quality * Technically adequate exam. ECG Findings * Normal sinus rhythm. Left Ventricle * LVEF 55%. * Mild left ventricular diastolic dysfunction. Right Ventricle * Mildly dilated right ventricle. Left Atrium * Severely dilated left atrium. Right Atrium * Moderately dilated right atrium. Interatrial Septum * Interatrial septum not well evaluated. Aortic Valve * Trileaflet aortic valve. Mitral Valve * Trace mitral regurgitation. Tricuspid Valve * Tricuspid valve not well visualized. * Estimated RVSP is 26 mmHg. * Estimated RA pressure is 3 mmHg. * No pulmonary hypertension. Pulmonic Valve * Pulmonic valve not well visualized. Aorta * Normally sized aortic root. Pericardium * There is a moderate pericardial effusion present. * There is no echocardiographic evidence of tamponade. Active Medications Aspirin (Aspirin Ec) 81 mg PO QPM ASHA Stop: 05/11/18 18:01 Last Admin: 11/11/17 17:22 Dose: 81 mg Dextrose/Water (Dextrose 50% (Syg)) 25 ml IVP AD PRN PRN Reason: Hypoglycemia Stop: 05/11/18 15:56 Diltiazem HCl (Cardizem Cd) 240 mg PO QAM ASHA Stop: 05/12/18 09:01 Last Admin: 11/12/17 11:27 Dose: 240 mg Glucagon (Glucagen) 1 mg IM ONCE PRN PRN Reason: Hypoglycemia Stop: 05/11/18 15:56 Glucose (Gluctose) 15 gm PO ONCE PRN PRN Reason: Hypoglycemia Stop: 05/11/18 15:56 Glucose (Gluctose) 30 gm PO ONCE PRN PRN Reason: Hypoglycemia Stop: 05/11/18 15:56 Hydralazine HCl (Hydralazine) 10 mg IVP Q6HR PRN PRN Reason: Hypertension Stop: 05/12/18 11:51 Last Admin: 11/10/17 12:12 Dose: 10 mg Dextrose (Dextrose 5%) 1,000 mls @ 100 mls/hr IVC .Q10H PRN PRN Reason: HYPOGLYCEMIA Stop: 05/11/18 15:56 Insulin Human Lispro (Humalog) 0 units SQ Q6HR ASHA PRN Reason: Protocol Stop: 05/11/18 18:01 Last Admin: 11/12/17 11:56 Dose: 2 units Isosorbide Mononitrate (Imdur) 90 mg PO QAM [facility] Stop: 05/12/18 09:01 Last Admin: 11/12/17 11:27 Dose: 90 mg Lansoprazole (Prevacid) 30 mg PO HS [facility] PRN Reason: Protocol Stop: 05/11/18 21:01 Last Admin: 11/11/17 20:04 Dose: 30 mg Levothyroxine Sodium (Synthroid) 200 mcg PO 0630 [facility] Stop: 05/12/18 06:31 Last Admin: 11/12/17 06:09 Dose: 200 mcg Losartan Potassium (Cozaar) 50 mg PO DAILY [facility] Stop: 05/12/18 09:01 Last Admin: 11/12/17 11:27 Dose: 50 mg Meclizine HCl (Antivert) 25 mg PO TID PRN PRN Reason: Vertigo Stop: 05/14/18 15:01 Naloxone HCl (Narcan) 0.4 mg IVP Q2MIN PRN PRN Reason: SEE COMMENTS Stop: 05/11/18 15:19 Ondansetron HCl (Zofran) 4 mg IVP Q6HR PRN; Protocol PRN Reason: Vomiting Stop: 05/11/18 18:01 Last Admin: 11/10/17 11:56 Dose: 4 mg Oxycodone HCl (Roxicodone) 10 mg PO Q6HR PRN; Protocol PRN Reason: Severe Pain Stop: 05/11/18 15:01 Last Admin: 11/12/17 04:30 Dose: 10 mg Ranolazine (Ranexa) 1,000 mg PO BID [facility] Stop: 05/11/18 21:01 Last Admin: 11/12/17 11:27 Dose: 1,000 mg Rosuvastatin Calcium (Crestor) 10 mg PO QPM [facility] Stop: 05/11/18 18:01 Last Admin: 11/11/17 17:22 Dose: Not Given Venlafaxine HCl (Effexor Xr) 225 mg PO DAILY [facility] Stop: 05/12/18 09:01 Last Admin: 11/12/17 11:26 Dose: 225 mg Vitamin D (Vitamin D) 1,000 unit PO DAILY ASHA Stop: 05/12/18 09:01 Last Admin: 11/12/17 11:27 Dose: 1,000 unit Warfarin Sodium (Coumadin Perpt) 1 each PO DAILY@1800 PRN PRN Reason: SEE COMMENTS Stop: 05/11/18 18:01 Warfarin Sodium (Coumadin) 2.5 mg PO 1800 ONE Stop: 11/12/17 18:01 - Imaging and Cardiology Stress Test: pending Echo: report reviewed - EKG Interpretation EKG results cardiology: personally reviewed, normal ECG, sinus rhythm, no diagnostic ischemia Consult Discharge Plan - Plan Referrals: Kaiden Hammer, [Primary Care Provider] - <Micki Cobos - Last Filed: 11/13/17 14:09> Date of Encounter: 11/13/17 - Attending Attestation I examined this patient and my medical decision-making was reviewed with the PHOTOGRAPHER STILL. I agree with the documented findings, disposition and treatment plan as described. We have been asked to evaluate Ms. Dawn preoperatively prior to potential cholecystectomy. According to RCRI score, she is at moderately high risk for perioperative event (Class IV risk, 11% MACE). Risk index based upon prior history of heart disease, elevated creatinine and preoperative use of insulin for diabetes. She has a history of CAD and recently underwent stress testing demonstrating possibility of prior infarct without evidence for ischemia and normal gated EF. She also has a small to moderate pericardial effusion present without tamponade physiology. Overall cardiac risk estimated at moderately high given elevated RCRI score. Further cardiac testing would not decrease her perioperative risk. No further testing is warranted from a cardiac perspective. However, recommend surgical team also take into consideration worsening renal function and decrease in Hgb before proceeding. We will sign off. Please call with questions. Assessment and Plan Discussion w patient/family: The assessment and plan as outlined above was discussed with the patient and/or family members who expressed understanding and agreement. All questions were answered. Thank you for involving us in the care of your patient. Please call with any questions. History of Present Illness History of present illness: Ms. Dawn is a 67 year old female All Systems Review: The remainder of the systems were reviewed and are negative Physical Examination Vital Signs, Last 4 Hours Temp Pulse Resp BP Pulse Ox 11/13/17 10:26 98.3 F 62 16 109/69 94 Results 11/13/17 09:52 11/13/17 09:52 Lab Results 11/13/17 11/13/17 11/13/17 09:52 09:52 09:52 WBC 7.2 Hgb 8.2 L Hct 26.3 L Plt Count 171 INR 3.2 Sodium 137 Potassium 4.5 Chloride 107 Carbon Dioxide 25 BUN 40 H Creatinine 2.93 H Glucose 140 H Calcium 8.5 L
[2017-11-12] MEDS: Aspirin Enteric Coated 81 MG Tablet PO SCH (16:18)
[2017-11-12] MEDS ORDERED: *HR* Warfarin 2.5 MG TABLET PO ONE (18:00)
--- NOTE | 2017-11-12 20:00 | Electrocardiograph Report ---
[address] [address] Test Date: 2017-11-09 Pat Name: Amie Dawn Department: 102 Room: 3A13 Gender: F Overnight Caregiver: Juan : 1950 Requested By: Santiago Gordon Order Number: [id number] Reading MD: Rosa Eid Measurements Intervals [place] Rate: 71 P: -71 NE: 112 QRS: -22 QRSD: 98 T: 69 QT: 407 QTc: 429 Interpretive Statements SINUS RHYTHM BORDERLINE LEFT AXIS DEVIATION [QRS AXIS < -20] NONSPECIFIC T-WAVE ABNORMALITY ABNORMAL RHYTHM ECG Electronically Signed On 11-12-2017 19:58:41 EST by Rosa Eid
[2017-11-13] MEDS: Insulin LISPRO 300 UNITS/3 ML VIAL SQ SCH ×3 (00:44→17:20)
[2017-11-13] MEDS: Venlafaxine XR (24 HR) 75 MG CAP.ER.24H PO SCH (08:10)
[2017-11-13] MEDS: Isosorbide MONOnitrate (24 HR) 60 MG TAB.ER.24H PO SCH (08:10)
[2017-11-13] MEDS: Ranolazine 500 MG TAB.ER.12H PO SCH ×2 (08:10→20:47)
[2017-11-13] MEDS: Cholecalciferol (D-3) 1,000 UNIT TABLET PO SCH (08:10)
[2017-11-13] MEDS: (Linagliptin [Tradjenta] 5 MG) PO SCH (08:11)
[2017-11-13] MEDS: Diltiazem CD (24hr) 240 MG CAPSULE PO SCH (08:11)
--- NOTE | 2017-11-13 09:25 | General Surgery Progress Note ---
<Julia Serrano Taina - Last Filed: 11/13/17 09:23> Date of Encounter: 11/13/17 Time of Encounter: 09:24 - Assessment and Plan (1) Cholecystitis Current Visit: Yes Status: Suspected 67 yo female with atypical symptoms of gallbladder disease. RUQ US indicative of cholelithiasis and probable cholecystitis. -Pain controlled this morning. -Patient NPO for second day of [place] stress testing. -Surgical intervention this admission, pending cardiovascular workup and risk stratifcation. -Continue supportive care, pain control, and anti-emetics. -Will hold coumadin, obtain daily PT/INR for potential surgery Saturday. -will continue to follow along closely. (2) CAD (coronary artery disease) Current Visit: Yes Status: Chronic Stress test currently in progress per primary team. -Echo preserved EF, no segmental wall motion abnormalities. -flat and adynamic troponin elevation in setting of EDD and CKD. Qualifiers: Coronary Disease-Associated Artery/Lesion type: [place] artery [place] vs. transplanted heart: [place] heart Associated angina: angina presence unspecified Qualified Code(s): I25.10 - Atherosclerotic heart disease of [place] coronary artery without angina pectoris (3) Pericardial effusion Current Visit: Yes Status: Acute No definitive features of tamponade. Early features cannot be ruled out. -Management per cardiology. (4) Atrial fibrillation Current Visit: Yes Status: Chronic Sinus rhythm -calcium channel [place] -Antiocoagulation on chronic coumadin. -Will hold coumadin for likely surgery later this week pending cardiac workup. Qualifiers: Atrial fibrillation type: unspecified Qualified Code(s): I48.91 - Unspecified atrial fibrillation (5) EDD (acute kidney injury) Current Visit: Yes Status: Acute Subjective Patient reports: feels better, pain is less (no nausea or vomitting. ), voiding w/o difficulty, flatus Objective Vital Signs - Last 8 Hours Temp Pulse Resp BP Pulse Ox 11/13/17 07:15 96 11/13/17 06:25 98.3 F 67 16 108/68 96 11/13/17 04:52 98.2 F 66 18 121/73 94 Intake and Output 11/12/17 11/13/17 11/13/17 23:59 07:59 15:59 Intake Total 480 / 480 0 / 0 Output Total 0 / 0 100 / 100 Balance 480 / 480 -100 / -100 Intake: Oral 480 / 480 0 / 0 Output: Urine 0 / 0 100 / 100 Other: Meal Dinner # Voids 1 Blood Glucose* 113 144 - General physical appearance well developed, no distress - Respiratory normal expansion, normal respiratory effort, clear to auscultation - Cardiovascular Cardiovascular exam: Present: RRR, no murmurs/rubs/gallops - Abdomen Abdomen: Present: bowel sounds present, soft, non tender Hernia: none - Neurologic CN 2-12 grossly intact, normal coordination - Psychiatric oriented to time, oriented to person, oriented to place, speech is normal, memory intact - Labs 11/11/17 03:29 11/12/17 04:39 Consult Discharge Plan - Plan Referrals: Kaiden Hammer DO [Primary Care Provider] - <Rajendra Shepard - Last Filed: 11/13/17 13:49> Date of Encounter: 11/13/17 - Assessment and Plan (1) RUQ abdominal pain Current Visit: Yes Status: Acute Objective Vital Signs - Last 8 Hours Temp Pulse Resp BP Pulse Ox 11/13/17 10:26 98.3 F 62 16 109/69 94 11/13/17 07:15 96 11/13/17 06:25 98.3 F 67 16 108/68 96 Intake and Output 11/12/17 11/13/17 11/13/17 23:59 07:59 15:59 Intake Total 480 / 480 0 / 0 240 / 240 Output Total 0 / 0 100 / 100 100 / 100 Balance 480 / 480 -100 / -100 140 / 140 Intake: Oral 480 / 480 0 / 0 240 / 240 Output: Urine 0 / 0 100 / 100 100 / 100 Other: Meal Dinner Breakfast Percent of Meal Consumed 5% # Voids 1 Blood Glucose* 113 144 - Labs 11/13/17 09:52 11/13/17 09:52 Diabetes panel 11/13/17 Range/Units 09:52 Sodium 137 (136-145) mEq/L Potassium 4.5 (3.5-5.1) mEq/L Chloride 107 (98-107) mEq/L Carbon Dioxide 25 (23-29) mEq/L BUN 40 H (8-23) mg/dL Creatinine 2.93 H (0.60-1.20) mg/dL Glucose 140 H (70-105) mg/dL Calcium 8.5 L (8.6-10.3) mg/dL Calcium panel 11/13/17 Range/Units 09:52 Calcium 8.5 L (8.6-10.3) mg/dL Pituitary panel 11/13/17 Range/Units 09:52 Sodium 137 (136-145) mEq/L Potassium 4.5 (3.5-5.1) mEq/L Chloride 107 (98-107) mEq/L Carbon Dioxide 25 (23-29) mEq/L BUN 40 H (8-23) mg/dL Creatinine 2.93 H (0.60-1.20) mg/dL Glucose 140 H (70-105) mg/dL Calcium 8.5 L (8.6-10.3) mg/dL Adrenal panel 11/13/17 Range/Units 09:52 Sodium 137 (136-145) mEq/L Potassium 4.5 (3.5-5.1) mEq/L Chloride 107 (98-107) mEq/L Carbon Dioxide 25 (23-29) mEq/L BUN 40 H (8-23) mg/dL Creatinine 2.93 H (0.60-1.20) mg/dL Glucose 140 H (70-105) mg/dL Calcium 8.5 L (8.6-10.3) mg/dL - Attending Attestation I have personally seen and examined the patient. I have reviewed pertinent labs , imaging, progress notes, including this one. I agree with the above assessment and plan and wish to include the following... 67F with acute cholecystitis; cardiac work up has her at intermediate risk; will plan for surgery tomorrow if possible; NPO at midnight; IVF at midnight; she will be on add on schedule so I do not have a definitive time.
--- NOTE | 2017-11-13 10:10 | Cardiology Progress Note ---
Date of Encounter: 11/13/17 Time of Encounter: 10:15 Assessment and Plan (1) Cholecystitis Current Visit: Yes Status: Suspected Per Cardiology: US: IMPRESSION: Cholelithiasis and probable cholecystitis. Enlarging right adrenal mass. Recommend follow-up CT adrenal protocol and/or MRI adrenal protocol. Management per surgery, potential surgery this week, however H&H downward trend and appears to have EDD on CKD. (2) Elevated troponin Current Visit: Yes Status: Acute Per Cardiology: Initially negative troponins and now with mild adynamic troponin elevations of 0.04 and 0.05 in setting of EDD on CKD and cholecystitis. Atypical chest pain symptoms. Echo showed preserved EF, NSWMA. VQ scan showed low probability for PE. Nulcear stress test negative for ischemia. (3) CAD (coronary artery disease) Current Visit: Yes Status: Chronic Per Cardiology: Last [facility] 10/2011: Findings/Interventions: Left Ventriculography - There was normal size and contractility of the left ventricle. Left ventricular ejection fraction was 60%. Left Main Coronary Artery - There were no obstructing lesions in the left main coronary artery. Blood flow appeared normal. Left Anterior Descending Artery - The pre-existing stent in the mid left anterior descending artery had 25% to 30% in-stent restenosis from the proximal to distal portion. The pre-existing stent in the proximal first diagonal artery was patent. Left Circumflex Artery - The circumflex artery gave rise to two obtuse marginal arteries. There were luminal irregularities from the proximal to mid circumflex artery. Right Coronary Artery - The right coronary artery was dominant to the posterior circulation. There were luminal irregularities from the proximal to mid right coronary artery. Impression: 25 to 30% in-stent restenosis of the pre-existing stent in the mid left anterior descending artery. 25 to 30% in-stent restenosis of the pre-existing stent in the proximal first diagonal artery. Minimal atherosclerotic coronary artery disease. Normal left ventricular size and contractility. The left ventricular ejection fraction was 60%. On aspirin, statin, ARB, long-acting nitrate, Ranexa, BB. Qualifiers: Coronary Disease-Associated Artery/Lesion type: [place] artery [place] vs. transplanted heart: [place] heart Associated angina: angina presence unspecified Qualified Code(s): I25.10 - Atherosclerotic heart disease of [place] coronary artery without angina pectoris (4) Pericardial effusion Current Visit: Yes Status: Acute Per Cardiology: ECHO: There is mild to moderate pericardial effusion present. Worse than previous ECHO when compared No definitive ECHO features of tamponade, early features cannot be ruled out. Please correlate clinically Patient appears clinically stable with no evidence of tamponade. (5) Atrial fibrillation Current Visit: Yes Status: Chronic Per Cardiology: Past history of paroxysmal atrial fibrillation. Currently sinus rhythm. On calcium channel [place] and BB. Qualifiers: Atrial fibrillation type: unspecified Qualified Code(s): I48.91 - Unspecified atrial fibrillation (6) Anticoagulated on Coumadin Current Visit: Yes Status: Chronic Per Cardiology: Apparent history of DVT. History of paroxysmal atrial fibrillation. Anticoagulated with Coumadin-- now on hold for possible surgery, recommend resume when able. (7) EDD (acute kidney injury) Current Visit: Yes Status: Acute Per Cardiology: Per review of records it appears patient has CKD stage IIIB, currently appears to have acute kidney injury. Now off ARB. Monitor kidney function closely-- labs pending. Avoid nephrotoxins. Consider nephrology consult if deemed clinically appropriate. (8) Preop cardiovascular exam Current Visit: Yes Status: Acute Per Cardiology: Potential surgery later this week. Discussed and reviewed with Dr. Cobos, patient can be considered intermediate risk from a cardiac standpoint for potential surgery. Cardiology will s/o, reconsult PRN, f/u arranged. Discussion w patient/family: The assessment and plan as outlined above was discussed with the patient and/or family members who expressed understanding and agreement. All questions were answered. Thank you for involving us in the care of your patient. Please call with any questions. Subjective Principal diagnosis: Elevated Trop Interval history: Patient denies any chest pain overnight. She reports tiredness morning. Denies any awareness to active bleeding or blood loss. Objective Vital Signs, Last 4 Hours Temp Pulse Resp BP Pulse Ox 11/13/17 07:15 96 11/13/17 06:25 98.3 F 67 16 108/68 96 General: Conversant, No Apparent Distress Cardiac: Reg Rate and Rhythm, Normal S1 and S2, No Murmur Lungs: Normal Breath Sounds, No Wheeze, Rales, Rhonchi Neuro: Alert and responsive, No focal deficits noted Skin: No rashes noted on visualized skin Extremities: No Edema Results 11/13/17 09:52 11/13/17 09:52 Active Medications Aspirin (Aspirin Ec) 81 mg PO QPM ASHA Stop: 05/11/18 18:01 Last Admin: 11/12/17 16:18 Dose: 81 mg Dextrose/Water (Dextrose 50% (Syg)) 25 ml IVP AD PRN PRN Reason: Hypoglycemia Stop: 05/11/18 15:56 Diltiazem HCl (Cardizem Cd) 240 mg PO QAM [facility] Stop: 05/12/18 09:01 Last Admin: 11/13/17 08:11 Dose: 240 mg Glucagon (Glucagen) 1 mg IM ONCE PRN PRN Reason: Hypoglycemia Stop: 05/11/18 15:56 Glucose (Gluctose) 15 gm PO ONCE PRN PRN Reason: Hypoglycemia Stop: 05/11/18 15:56 Glucose (Gluctose) 30 gm PO ONCE PRN PRN Reason: Hypoglycemia Stop: 05/11/18 15:56 Hydralazine HCl (Hydralazine) 10 mg IVP Q6HR PRN PRN Reason: Hypertension Stop: 05/12/18 11:51 Last Admin: 11/10/17 12:12 Dose: 10 mg Dextrose (Dextrose 5%) 1,000 mls @ 100 mls/hr IVC .Q10H PRN PRN Reason: HYPOGLYCEMIA Stop: 05/11/18 15:56 Insulin Human Lispro (Humalog) 0 units SQ Q6HR ASHA PRN Reason: Protocol Stop: 05/11/18 18:01 Last Admin: 11/13/17 06:05 Dose: 2 units Isosorbide Mononitrate (Imdur) 90 mg PO QAM [facility] Stop: 05/12/18 09:01 Last Admin: 11/13/17 08:10 Dose: 90 mg Lansoprazole (Prevacid) 30 mg PO HS [facility] PRN Reason: Protocol Stop: 05/11/18 21:01 Last Admin: 11/12/17 20:24 Dose: 30 mg Levothyroxine Sodium (Synthroid) 200 mcg PO 0630 [facility] Stop: 05/12/18 06:31 Last Admin: 11/13/17 06:01 Dose: 200 mcg Meclizine HCl (Antivert) 25 mg PO TID PRN PRN Reason: Vertigo Stop: 05/14/18 15:01 Metoprolol Tartrate (Lopressor) 12.5 mg PO BID [facility] Stop: 05/14/18 21:01 Last Admin: 11/13/17 08:10 Dose: 12.5 mg Naloxone HCl (Narcan) 0.4 mg IVP Q2MIN PRN PRN Reason: SEE COMMENTS Stop: 05/11/18 15:19 Ondansetron HCl (Zofran) 4 mg IVP Q6HR PRN; Protocol PRN Reason: Vomiting Stop: 05/11/18 18:01 Last Admin: 11/10/17 11:56 Dose: 4 mg Oxycodone HCl (Roxicodone) 10 mg PO Q6HR PRN; Protocol PRN Reason: Severe Pain Stop: 05/11/18 15:01 Last Admin: 11/12/17 16:18 Dose: 10 mg Pharmacy Profile Note (Patient Taking Own Medication) 1 each PO DAILY ASHA Stop: 05/15/18 09:01 Last Admin: 11/13/17 08:11 Dose: 1 each Ranolazine (Ranexa) 1,000 mg PO BID ASHA Stop: 05/11/18 21:01 Last Admin: 11/13/17 08:10 Dose: 1,000 mg Rosuvastatin Calcium (Crestor) 10 mg PO QPM ASHA Stop: 05/11/18 18:01 Last Admin: 11/12/17 16:17 Dose: 10 mg Venlafaxine HCl (Effexor Xr) 225 mg PO DAILY [facility] Stop: 05/12/18 09:01 Last Admin: 11/13/17 08:10 Dose: 225 mg Vitamin D (Vitamin D) 1,000 unit PO DAILY ASHA Stop: 05/12/18 09:01 Last Admin: 11/13/17 08:10 Dose: 1,000 unit STRESS TEST: Impression: Pharmacologic stress ECG is negative for ischemia at level of heart rate achieved. Gated EF = 64%. Medium sized, moderate intensity, fixed inferior and inferolateral defect possibly due to a prior infarct. Perfusion imaging was negative for ischemia. Laboratory Tests 11/13/17 11/13/17 11/13/17 09:52 09:52 09:52 Hgb 8.2 L Hct 26.3 L INR 3.2 Creatinine 2.93 H Est GFR (Non-Af Amer) 16 L - Imaging and Cardiology Stress Test: report reviewed Echo: report reviewed - EKG Interpretation EKG results cardiology: other (Telemetry review with average heart rate 65 the past 12 hours, currently sinus rhythm in the 60s, no evidence appreciated) Consult Discharge Plan - Plan Referrals: Kaiden Hammer DO [Primary Care Provider] -
[2017-11-13 10:25] LABS: Basophils % 0.3 %; Eosinophils # 0.1 K/mcL (0.0-0.6); Eosinophils % 1.4 %; Hematocrit 26.3 % (35.3-44.9); Hemoglobin 8.2 g/dL (11.5-15.4); Immature Granulocytes % 0.7 % (0-4); Lymphocytes # 1.2 K/mcL (0.6-4.6); Lymphocytes % 16.3 %; Mean Corpuscular HGB Conc 31.2 g/dL (31.6-35.5); Mean Corpuscular Hemoglobin 30.1 pg (28.0-33.3); Mean Corpuscular Volume 96.7 fL (83.0-100.0); Mean Platelet Volume 10.4 fL (9.4-12.4); Monocytes # 0.6 K/mcL (0.0-1.3); Monocytes % 8.4 %; Neutrophils # 5.3 K/mcL (1.6-8.9); Platelet Count 171 K/mcL (140-400); Red Blood Count 2.72 M/mcL (3.82-4.97); Red Cell Distribution Width 14.1 % (11.5-14.5); Segmented Neutrophils % 72.9 %
[2017-11-13 10:31] LABS: INR 3.2; Prothrombin Time 35.3 Seconds (9.4-12.1)
[2017-11-13 10:32] LABS: Calcium 8.5 mg/dL (8.6-10.3); Potassium 4.5 mEq/L (3.5-5.1)
--- NOTE | 2017-11-13 11:00 | Internal Med Progress Note ---
Date of Encounter: 11/13/17 Time of Encounter: 10:59 - Assessment and plan (1) Atypical chest pain Current Visit: Yes Status: Acute Assessment and plan: Chest pain resolved. Troponin trended down to 0.04. Abnormal ECHO results. Cardiology consulted; appreciate input. Stress test negative for ischemia (2) DVT prophylaxis Current Visit: Yes Status: Acute Assessment and plan: On coumadin. INR is therapeutic (3) Pericardial effusion Current Visit: Yes Status: Acute Assessment and plan: per ECHO Cardio eval noted and appreciated, no clinical features of tamponade (4) RUQ abdominal pain Current Visit: Yes Status: Acute Assessment and plan: Ultrasound with suspected cholecystitis. Surgery consulted; appreciate input. Consider inpatient vs outpatient cholecystecomy based on pain control and tolerance of diet. Trop adynamic ECHO remarkable for LA dilation and pericardial effusion Stress test negative today For surgery on Wednesday 11/15 (5) Anticoagulated on Coumadin Current Visit: Yes Status: Chronic Assessment and plan: Therapeutic. Discontinue coumadin Consider reversal depending on INR a.m Will possibly bridge with heparin (6) Atrial fibrillation Current Visit: Yes Status: Chronic Assessment and plan: Continue home diltiazem Hold Coumadin for surgery. Qualifiers: Atrial fibrillation type: unspecified Qualified Code(s): I48.91 - Unspecified atrial fibrillation (7) CKD (chronic kidney disease) Current Visit: Yes Status: Chronic Assessment and plan: Cr at baseline. Continue to monitor. Qualifiers: Chronic kidney disease stage: stage 2 (mild) Qualified Code(s): N18.2 - Chronic kidney disease, stage 2 (mild) (8) Type II diabetes mellitus Current Visit: Yes Status: Chronic Assessment and plan: Continue accuchecks and SSI QID AC/HS. Qualifiers: Diabetes mellitus complication status: with kidney complications Diabetes mellitus complication detail: with chronic kidney disease Diabetes mellitus long term care administrator insulin use: with long term care administrator use Chronic kidney disease stage: stage 3 (moderate) Qualified Code(s): E11.22 - Type 2 diabetes mellitus with diabetic chronic kidney disease; N18.3 - Chronic kidney disease, stage 3 ( moderate); N18.3 - Chronic kidney disease, stage 3 (moderate); Z79.4 - intermediate frame tender (current) use of insulin; Z79.4 - intermediate frame tender (current) use of insulin; Z79.4 - intermediate frame tender (current) use of insulin; Z79.4 - intermediate frame tender (current) use of insulin (9) Cholecystitis Current Visit: Yes Status: Suspected Assessment and plan: As per above. - Subjective Interval history: Seen and evaluated at bedside Surgery and cardiology is following, apparently for surgery tentatively on saturday Will consider switching coumadin to heparin in preparation for surgery after INR is INR is therapeutic, patient may need reversal prior to surgery, depending on INR a.m Stress test is negative for ischemia - Constitutional Vitals: Temp Pulse Resp BP Pulse Ox 98.3 F 62 16 109/69 94 11/13/17 10:26 11/13/17 10:26 11/13/17 10:26 11/13/17 10:26 11/13/17 10:26 General appearance: Present: A&O X 3, morbidly obese, pleasant, no acute distress - Head Head exam: Present: atraumatic, normocephalic - Eye Eye exam: Present: PERRL, conjuntiva pink, sclera anicteric Pupils: Present: PERRL - Neck Neck exam general surgery: Present: supple, trachea midline. Absent: lymphadenopathy - Respiratory Respiratory exam: Present: CTAB. Absent: accessory muscle use, rales, rhonchi, wheezes - Cardiovascular Cardiovascular exam: Present: RRR, +S1, +S2. Absent: diastolic murmur, gallop, rubs, systolic murmur - GI/Abdominal GI/Abdominal exam: Present: normal bowel sounds, soft, no peritoneal signs. Absent: distended, tenderness - Extremities Exam Extremities exam: Present: warm, radial pulses palpable and symmetrical. Absent : calf tenderness, cyanotic, pedal edema - Neurological Exam Neurological exam: Present: alert, CN II-XII intact, oriented X3, no focal deficits. Absent: pronater drift, facial droop, speech deficit - Skin Skin exam: Present: dry, intact Internal Medicine: Result - Labs CBC & Chem 7: 11/13/17 09:52 11/13/17 09:52 Labs: Short CBC 11/13/17 Range/Units 09:52 WBC 7.2 (4.3-11.1) K/mcL Hgb 8.2 L (11.5-15.4) g/dL Hct 26.3 L (35.3-44.9) % Plt Count 171 (140-400) K/mcL Neutrophils # 5.3 (1.6-8.9) K/mcL BMP 11/13/17 09:52 Sodium 137 Potassium 4.5 Chloride 107 Carbon Dioxide 25 BUN 40 H Creatinine 2.93 H Glucose 140 H Calcium 8.5 L - ABG Interpretation ABG results: PT/INR, D-dimer PT 35.3 Seconds (9.4-12.1) H 11/13/17 09:52 D-Dimer 703 ng/mLFEU (0-500) H 11/09/17 11:23 Consult Discharge Plan - Plan Referrals: Kaiden Hammer DO [Primary Care Provider] -
[2017-11-13] MEDS: Aspirin Enteric Coated 81 MG Tablet PO SCH (17:19)
[2017-11-13] MEDS ORDERED: 0.9 % Sodium Chloride 500 ML ONE (20:37)
[2017-11-13] MEDS ORDERED: Insulin LISPRO 300 UNITS/3 ML VIAL SQ SCH (21:00)
--- NOTE | 2017-11-13 22:47 | Anesthesia Evaluation PreOp ---
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 Anxiety/Depression maintained on Pristiq [ Desvenlafaxine]. Vertigo maintained on Meclizine. R-Parietal lobe meningioma) Other Medical History: Renal (CKD stage 2. R-Adrenal mass stable since last imaging [?]), Diabetes Type II (maintained on Tradenta, Glimepiride, Lispro), Thyroid (maintained on Levothyroixine), GERD (maintained on Prevacid), Other ( Osteoporosis. Hx Breast Ca s/p lumpectomy/mastectomy) Anesthesia History: No Prior Anesthetic Complications, Past Anesthesia (Breast surgery, Hyster, Orthopedic surgery) Alcohol Use: none Drug use: none Medications and Allergies Meclizine [Antivert] 25 mg PO AD PRN 06/10/15 [History] Aspirin [Adult Low Dose Aspirin EC] 81 mg PO QPM 07/18/15 [History] Cyanocobalamin (Vitamin B-12) [Vitamin B12] 2,500 mg PO QAM 07/18/15 [History] Diltiazem CD (24hr) [Cardizem CD] 240 mg PO QAM 07/18/15 [History] Isosorbide MONOnitrate (24 HR) [Imdur] 90 mg PO QAM 07/18/15 [History] Ranolazine [Ranexa] 1,000 mg PO BID 07/18/15 [History] Rosuvastatin Calcium [Crestor] 10 mg PO QPM 07/18/15 [History] Warfarin [Coumadin] 5 mg PO [id number] 07/18/15 [History] Glimepiride [Amaryl] 3 mg PO QAM 07/21/15 [History] Lansoprazole [Prevacid] 30 mg PO HS 07/21/15 [History] Multivitamin/Iron/Folic Acid [Centrum Complete Multivit Tab] 1 each PO QAM 07/21 [History] Saccharomyces Boulardii [Probiotic] 250 mg PO DAILY 07/21/15 [History] Warfarin [Coumadin] 2.5 mg PO TH 07/21/15 [History] Cholecalciferol (Vitamin D3) [Vitamin D] 1,000 unit PO DAILY 12/26/16 [History] Denosumab [Prolia (For Outpatient Infusion)] 60 mg SQ Q6M 12/26/16 [History] Losartan Potassium [Cozaar] 50 mg PO DAILY 12/26/16 [History] Mirabegron [Myrbetriq] 50 mg PO HS 12/26/16 [History] Desvenlafaxine Succinate [Desvenlafaxine Succinate ER] 150 mg PO DAILY 11/09/17 [History] Insulin LISPRO [HumaLOG] 10 unit SQ TIDWM 11/09/17 [History] Levothyroxine Sodium [Levothyroxine Sodium] 200 mcg PO DAILY 11/09/17 [History] Linagliptin [Tradjenta] 5 mg PO DAILY 11/09/17 [History] 3 Allergy/AdvReac Type Severity Reaction Status Date / Time sulfamethoxazole AdvReac See Verified 12/26/16 09:31 [From Bactrim] Comments trimethoprim [From Bactrim] AdvReac See Verified 12/26/16 09:31 Comments - Meds/Allergy Pre-op Review Medications Reviewed: Yes Allergies Reviewed: Yes Beta Blockers on Current Med List: Yes (Metoprolol) If Beta Blockers taken, Date/Time (Last Dose taken): 11/13/2017 @ 2046 Anesthesia Results - Labs 11/13/17 09:52 11/13/17 09:52 Laboratory Results WBC 7.2 K/mcL (4.3-11.1) 11/13/17 09:52 RBC 2.72 M/mcL (3.82-4.97) L 11/13/17 09:52 Hgb 8.2 g/dL (11.5-15.4) L 11/13/17 09:52 Hct 26.3 % (35.3-44.9) L 11/13/17 09:52 MCV 96.7 fL (83.0-100.0) 11/13/17 09:52 MCH 30.1 pg (28.0-33.3) 11/13/17 09:52 MCHC 31.2 g/dL (31.6-35.5) L 11/13/17 09:52 RDW 14.1 % (11.5-14.5) 11/13/17 09:52 Plt Count 171 K/mcL (140-400) 11/13/17 09:52 MPV 10.4 fL (9.4-12.4) 11/13/17 09:52 Immature Gran % 0.7 % (0-4) 11/13/17 09:52 Seg Neutrophils % 72.9 % 11/13/17 09:52 Lymphocytes % 16.3 % 11/13/17 09:52 Monocytes % 8.4 % 11/13/17 09:52 Eosinophils % 1.4 % 11/13/17 09:52 Basophils % 0.3 % 11/13/17 09:52 Neutrophils # 5.3 K/mcL (1.6-8.9) 11/13/17 09:52 Lymphocytes # 1.2 K/mcL (0.6-4.6) 11/13/17 09:52 Monocytes # 0.6 K/mcL (0.0-1.3) 11/13/17 09:52 Eosinophils # 0.1 K/mcL (0.0-0.6) 11/13/17 09:52 Basophils # 0.0 K/mcL (0.0-0.2) 11/13/17 09:52 Nucleated RBCs/100 WBC 0.3 /100 WBC (0) H 11/11/17 03:29 PT 35.3 Seconds (9.4-12.1) H 11/13/17 09:52 INR 3.2 11/13/17 09:52 APTT 32.0 Seconds (26.0-36.0) 11/10/17 00:40 D-Dimer 703 ng/mLFEU (0-500) H 11/09/17 11:23 Sodium 137 mEq/L (136-145) 11/13/17 09:52 Potassium 4.5 mEq/L (3.5-5.1) 11/13/17 09:52 Chloride 107 mEq/L (98-107) 11/13/17 09:52 Carbon Dioxide 25 mEq/L (23-29) 11/13/17 09:52 BUN 40 mg/dL (8-23) H 11/13/17 09:52 Creatinine 2.93 mg/dL (0.60-1.20) H 11/13/17 09:52 Est GFR ( Amer) 19 (> 60) L 11/13/17 09:52 Est GFR (Non-Af Amer) 16 (> 60) L 11/13/17 09:52 BUN/Creatinine Ratio 14 (6-26) 11/13/17 09:52 Glucose 140 mg/dL (70-105) H 11/13/17 09:52 POC Glucose 170 (58-89) H 11/13/17 17:03 Calculated Osmolality 296 (280-300) 11/13/17 09:52 Calcium 8.5 mg/dL (8.6-10.3) L 11/13/17 09:52 Total Bilirubin 0.3 mg/dL (0.3-1.0) 11/10/17 00:40 Direct Bilirubin 0.1 mg/dL (0.0-0.2) 11/09/17 20:19 Indirect Bilirubin 0.2 mg/dL (0.0-1.2) 11/09/17 20:19 AST 16 Units/L (13-39) 11/10/17 00:40 ALT 11 Units/L (7-52) 11/10/17 00:40 Alkaline Phosphatase 73 Units/L (34-104) 11/10/17 00:40 Troponin I 0.04 ng/mL (< 0.04) H* 11/10/17 08:03 B-Natriuretic Peptide 34 pg/mL (Less than 100) 11/09/17 11:23 Serum Total Protein 6.1 g/dL (6.4-8.9) L 11/10/17 00:40 Albumin 3.3 g/dL (3.5-5.7) L 11/10/17 00:40 Globulin 2.8 g/dL (2.4-3.5) 11/10/17 00:40 Albumin/Globulin Ratio 1.2 (1.1-2.2) 11/10/17 00:40 Triglycerides 250 mg/dL (< 150) H 11/10/17 00:40 Cholesterol 239 mg/dL (< 200) H 11/10/17 00:40 LDL Cholesterol, Calc 138 mg/dL (0-99) H 11/10/17 00:40 VLDL Cholesterol, Calc 50 mg/dL (< 31) H 11/10/17 00:40 HDL Cholesterol 51 mg/dL (40-59) 11/10/17 00:40 Cholesterol/HDL Ratio 4.7 (0-4.9) 11/10/17 00:40 Amylase 15 Units/L (29-103) L 11/09/17 15:54 Lipase 25 Units/L (11-82) 11/09/17 15:54 Blood Type A POSITIVE 11/13/17 19:47 Antibody Screen NEGATIVE 11/13/17 19:47 Impressions Chest X-Ray 11/09/17 11:15 IMPRESSION: Cardiomegaly and central vascular congestion. D/ / Marcell Dejesus MD / Marcell Dejesus MD Interpreting Provider: Marcell Dejesus MD Pulmonary Perfusion Imaging 11/09/17 11:59 IMPRESSION: Low Probability for Pulmonary Embolus. No scintigraphic evidence of acute PE. D/ / Adis Ricardo MD / Adis Ricardo MD Interpreting Provider: Adis Ricardo MD Gallbladder Ultrasound 11/09/17 15:34 IMPRESSION: Cholelithiasis and probable cholecystitis. Enlarging right adrenal mass. Recommend follow-up CT adrenal protocol and/or MRI adrenal protocol. RECOMMENDATIONS: The findings were sent to the Radiology Results Communication Center at 6:52 pm on 11/09/2017to be communicated to a licensed caregiver. D/ / Lee Forman MD / Lee Forman MD Interpreting Provider: Lee Forman MD Echocardiogram 11/10/17 15:26 Impressions: LVEF 55%. Mild left ventricular diastolic dysfunction. Mildly dilated right ventricle. Severely dilated left atrium. Moderately dilated right atrium. There is mild to moderate pericardial effusion present. Worse than previous ECHO when compared No definitive ECHO features of tamponade, early features cannot be ruled out. Please correlate clinically Left Ventricular Wall Motion: Rest Echo Findings All wall segments showed normal motion. Findings: Study Quality * Technically adequate exam. ECG Findings * Normal sinus rhythm. Left Ventricle * LVEF 55%. * Mild left ventricular diastolic dysfunction. Right Ventricle * Mildly dilated right ventricle. Left Atrium * Severely dilated left atrium. Right Atrium * Moderately dilated right atrium. Interatrial Septum * Interatrial septum not well evaluated. Aortic Valve * Trileaflet aortic valve. Mitral Valve * Trace mitral regurgitation. Tricuspid Valve * Tricuspid valve not well visualized. * Estimated RVSP is 26 mmHg. * Estimated RA pressure is 3 mmHg. * No pulmonary hypertension. Pulmonic Valve * Pulmonic valve not well visualized. Aorta * Normally sized aortic root. Pericardium * There is a moderate pericardial effusion present. * There is no echocardiographic evidence of tamponade. - Imaging EKG: report reviewed (EKG dated 11/09/2017 - 71bpm. SINUS RHYTHM BORDERLINE LEFT AXIS DEVIATION [QRS AXIS < -20] NONSPECIFIC T-WAVE ABNORMALITY ABNORMAL RHYTHM ECG Electronically Signed On 11-12-2017 19:58:41 EST by Rosa Eid) Anesthesia Exam Vital Signs Temp Pulse Resp BP Pulse Ox 11/13/17 21:09 98.1 F 64 16 123/75 97 11/13/17 21:04 98.1 F 67 16 122/78 11/13/17 18:52 98.7 F 70 16 127/74 96 11/13/17 14:33 98.0 F 59 16 100/63 95 11/13/17 10:26 98.3 F 62 16 109/69 94 11/13/17 07:15 96 11/13/17 06:25 98.3 F 67 16 108/68 96 11/13/17 04:52 98.2 F 66 18 121/73 94 11/13/17 00:06 97.9 F 62 18 112/72 97 Intake and Output 11/13/17 11/13/17 11/13/17 07:59 15:59 23:59 Intake Total 0 / 0 720 / 720 390 / 390 Output Total 100 / 100 100 / 100 400 / 400 Balance -100 / -100 620 / 620 -10 / -10 Intake: Oral 0 / 0 720 / 720 240 / 240 Blood Product 150 / 150 Plasma Unit [id number] 150 / 150 Output: Urine 100 / 100 100 / 100 400 / 400 Other: Meal Clears Dinner Percent of Meal Consumed 0% 100% # Voids 1 Blood Glucose* 144 161 Height: 5'3" Weight: 280# BMI = 50 NPO (# of Hours): MNoc - HEENT Pupil (Motor): Pupils equal, EOMI Mallampati: III Teeth: Normal Oral Opening: Greater than 3 - TRAIN CALLER LOC: Oriented TRAIN CALLER Motor: Normal RUE, Normal LUE, Normal RLE, Normal LLE, Normal Face TRAIN CALLER Sensory: Normal: RUE, LUE, RLE, LLE, Face - Cardiac Rhythm: Regular Murmur: None - Pulmonary Breath Sounds: bilateral Clear Respiratory Effort: Symmetrical Anesthesia Assess/Plan ASA Score: 3 (MO/BMI = 50, CKD, CAD, HTN, Chol, Paroxysmal AFib, DM, Hypothyroidism) Modified [place] Scale for Level of Consciousness: Cooperative, oriented, and tranquil Anesthetic Plan: General Monitoring Plan: Standard Monitors Recovery Plan: PACU
[2017-11-14 03:22] LABS: INR 2.4; Prothrombin Time 26.1 Seconds (9.4-12.1)
[2017-11-14] MEDS ORDERED: 0.9 % Sodium Chloride 250 ML ONE ×2 (04:41→22:59)
[2017-11-14] MEDS: Ranolazine 500 MG TAB.ER.12H PO SCH ×2 (08:01→22:16)
[2017-11-14] MEDS: Diltiazem CD (24hr) 240 MG CAPSULE PO SCH (08:02)
[2017-11-14] MEDS: Isosorbide MONOnitrate (24 HR) 60 MG TAB.ER.24H PO SCH (08:02)
[2017-11-14] MEDS: Cholecalciferol (D-3) 1,000 UNIT TABLET PO SCH (08:02)
[2017-11-14] MEDS: Venlafaxine XR (24 HR) 75 MG CAP.ER.24H PO SCH (08:02)
[2017-11-14] MEDS: (Linagliptin [Tradjenta] 5 MG) PO SCH (08:03)
[2017-11-14] MEDS: Insulin LISPRO 300 UNITS/3 ML VIAL SQ SCH ×3 (08:03→17:49)
--- NOTE | 2017-11-14 08:50 | Event Note ---
Date of Encounter: 11/14/17 Time of Encounter: 08:48 PT scheduled/added on for laproscopic mady today with Dr. Shepard. INR 2.4. Will transfuse 2 units FFP now.
[2017-11-14] MEDS ORDERED: Furosemide 40 MG/4 ML VIAL IVP ONE ×2 (09:07→13:12)
[2017-11-14] MEDS ORDERED: 0.9 % Sodium Chloride 1,000 ML IVC SCH ×2 (09:15)
[2017-11-14] MEDS: 0.9 % Sodium Chloride 1,000 ML IVC SCH (11:10)
--- NOTE | 2017-11-14 12:21 | Internal Med Progress Note ---
Date of Encounter: 11/14/17 Time of Encounter: 13:13 - Assessment and plan (1) Atypical chest pain Current Visit: Yes Status: Acute Assessment and plan: Chest pain resolved. Troponin trended down to 0.04. Abnormal ECHO results. Cardiology consulted; appreciate input. Stress test negative for ischemia (2) DVT prophylaxis Current Visit: Yes Status: Acute Assessment and plan: On coumadin. INR is therapeutic, currently receiving FFP for INR reversal. Place on SCDs in the meantime. (3) Pericardial effusion Current Visit: Yes Status: Acute Assessment and plan: per ECHO Cardio eval noted and appreciated, no clinical features of tamponade (4) RUQ abdominal pain Current Visit: Yes Status: Acute Assessment and plan: Ultrasound with suspected cholecystitis. Surgery consulted; appreciate input. Consider inpatient vs outpatient cholecystecomy based on pain control and tolerance of diet. Trop adynamic ECHO remarkable for LA dilation and pericardial effusion Stress test negative today Possible surgery today. (5) Anticoagulated on Coumadin Current Visit: Yes Status: Chronic Assessment and plan: Therapeutic. Continue reversal with fresh frozen plasma. However, patient has a history of CHF and is already hypoxic. Consider given vitamin K instead. Follow repeat INR. (6) Atrial fibrillation Current Visit: Yes Status: Chronic Assessment and plan: Continue home diltiazem Hold Coumadin for surgery. Qualifiers: Atrial fibrillation type: unspecified Qualified Code(s): I48.91 - Unspecified atrial fibrillation (7) CKD (chronic kidney disease) Current Visit: Yes Status: Chronic Assessment and plan: Creatinine noted to be up-trending No nephrotoxc medications noted Patient however, received lasix this morning, continue to monitor Consider renal eval if not improving Qualifiers: Chronic kidney disease stage: stage 2 (mild) Qualified Code(s): N18.2 - Chronic kidney disease, stage 2 (mild) (8) Type II diabetes mellitus Current Visit: Yes Status: Chronic Assessment and plan: Continue accuchecks and SSI QID AC/HS. Qualifiers: Diabetes mellitus complication status: with kidney complications Diabetes mellitus complication detail: with chronic kidney disease Diabetes mellitus terminal supervisor insulin use: with terminal supervisor use Chronic kidney disease stage: stage 3 (moderate) Qualified Code(s): E11.22 - Type 2 diabetes mellitus with diabetic chronic kidney disease; N18.3 - Chronic kidney disease, stage 3 ( moderate); N18.3 - Chronic kidney disease, stage 3 (moderate); Z79.4 - snf (current) use of insulin; Z79.4 - intermission coordinator (current) use of insulin; Z79.4 - snf (current) use of insulin; Z79.4 - snf (current) use of insulin (9) Cholecystitis Current Visit: Yes Status: Suspected Assessment and plan: Surgery today - Subjective Interval history: Seen and evaluated at bedside, with family Patient was seen after her fourth unit of fresh frozen plasma for reversal of INR. She is now requiring 2 L of oxygen by nasal cannula to keep her saturation level above 94%. She already received 40 mg of Lasix IV Her kidney function seems to be progressively getting worse on her chemistry. - Constitutional Vitals: Temp Pulse Resp BP Pulse Ox 98.9 F 66 18 151/78 94 11/14/17 10:08 11/14/17 10:08 11/14/17 10:08 11/14/17 10:08 11/14/17 10:08 General appearance: Present: A&O X 3, morbidly obese, pleasant, no acute distress - Head Head exam: Present: atraumatic, normocephalic - Eye Eye exam: Present: PERRL, conjuntiva pink, sclera anicteric Pupils: Present: PERRL - Neck Neck exam general surgery: Present: supple, trachea midline. Absent: lymphadenopathy - Respiratory Additional comments: Bibasilar crackles. - Cardiovascular Cardiovascular exam: Present: RRR, +S1, +S2. Absent: diastolic murmur, gallop, rubs, systolic murmur - GI/Abdominal GI/Abdominal exam: Present: normal bowel sounds, soft, no peritoneal signs. Absent: distended, tenderness - Additional comments: Urinary catheter draining clear urine. - Extremities Exam Extremities exam: Present: warm, radial pulses palpable and symmetrical. Absent : calf tenderness, cyanotic, pedal edema - Neurological Exam Neurological exam: Present: alert, CN II-XII intact, oriented X3, no focal deficits. Absent: pronater drift, facial droop, speech deficit - Skin Skin exam: Present: dry, intact Internal Medicine: Result - Labs CBC & Chem 7: 11/13/17 09:52 11/13/17 09:52 - ABG Interpretation ABG results: PT/INR, D-dimer PT 26.1 Seconds (9.4-12.1) H 11/14/17 03:07 D-Dimer 703 ng/mLFEU (0-500) H 11/09/17 11:23 Consult Discharge Plan - Plan Referrals: Kaiden Hammer DO [Primary Care Provider] -
[2017-11-14 13:23] LABS: Prothrombin Time 21.7 Seconds (9.4-12.1)
--- NOTE | 2017-11-14 15:17 | Event Note ---
Date of Encounter: 11/14/17 Time of Encounter: 15:14 Noted INR 2.0. Pt is preopped. Reviewed with TRES Valdez to please have FFP infusing (bag 5/6) and bag 6/6 salon supervisor to OR.
[2017-11-14] MEDS ORDERED: *HR* FentaNYL (PF) 100 MCG/2 ML VIAL ONE (16:04)
[2017-11-14] MEDS ORDERED: Lidocaine -MPF 2% 2 ML VIAL ONE (16:04)
[2017-11-14] MEDS ORDERED: Ondansetron 4 MG/2 ML VIAL ONE (16:04)
[2017-11-14] MEDS ORDERED: *HR* Propofol 200 MG/20 ML VIAL IVP ONE (16:04)
[2017-11-14] MEDS ORDERED: *HR* Rocuronium Bromide 50 MG/5 ML VIAL ONE (16:04)
[2017-11-14] MEDS ORDERED: Dexamethasone 4 MG/ML VIAL ONE (16:04)
[2017-11-14] MEDS ORDERED: Furosemide 20 MG/2 ML VIAL IVP ONE ×2 (17:02→21:49)
[2017-11-14] MEDS: Aspirin Enteric Coated 81 MG Tablet PO SCH (17:42)
--- NOTE | 2017-11-14 17:45 | General Surgery Progress Note ---
Date of Encounter: 11/14/17 Time of Encounter: 17:44 - Assessment and Plan (1) RUQ abdominal pain Current Visit: Yes Status: Acute 67F with atypical symptoms of gallbladder disease, currently in pain, INR being reversed; okay for surgery after reversal; plan for OR today Subjective Patient reports: no new complaints Objective Vital Signs - Last 8 Hours Temp Pulse Resp BP Pulse Ox 11/14/17 16:20 98.2 F 82 18 171/83 97 11/14/17 15:56 98.5 F 75 18 165/80 95 11/14/17 12:50 98.3 F 78 18 146/80 95 11/14/17 10:08 98.9 F 66 18 151/78 94 11/14/17 09:50 98.4 F 69 18 144/78 94 Intake and Output 11/14/17 11/14/17 11/14/17 07:59 15:59 23:59 Intake Total 350 / 350 530 / 530 0 / 0 Output Total 1000 / 1000 1850 / 1850 Balance -650 / -650 -1320 / -1320 0 / 0 Intake: Oral 0 / 0 Blood Product 350 / 350 530 / 530 0 / 0 Plasma Unit [id number] 280 / 280 Plasma Unit [id number] 0 / 0 Plasma Unit [id number] 350 / 350 Plasma Unit [id number] 0 / 0 250 / 250 Output: Urine 1000 / 1000 300 / 300 Catheter 1550 / 1550 Other: Meal NPO Weight 127 kg Blood Glucose* 154 126 Patient Weight 11/14/17 23:59 Weight 127 kg - General physical appearance no distress - Eyes other (no scleral icterus) - Respiratory normal expansion, normal respiratory effort - Cardiovascular Cardiovascular exam: Present: RRR - Abdomen Abdomen: Present: soft, tender Abdominal Tenderness: RUQ - Neurologic CN 2-12 grossly intact - Psychiatric oriented to time - Labs 11/13/17 09:52 11/13/17 09:52 Consult Discharge Plan - Plan Referrals: Kaiden Hammer DO [Primary Care Provider] -
[2017-11-14 21:01] LABS: Prothrombin Time 21.9 Seconds (9.4-12.1)
[2017-11-14] MEDS: *HR* OxyCODONE Immed Rel 5 MG TABLET PO PRN (22:17)
[2017-11-15] MEDS: Insulin LISPRO 300 UNITS/3 ML VIAL SQ SCH ×4 (00:20→18:23)
[2017-11-15 06:16] LABS: Basophils % 0.3 %; Eosinophils # 0.1 K/mcL (0.0-0.6); Eosinophils % 0.9 %; Hematocrit 25.6 % (35.3-44.9); Hemoglobin 8.5 g/dL (11.5-15.4); Immature Granulocytes % 1.2 % (0-4); Lymphocytes % 16.6 %; Mean Corpuscular HGB Conc 33.2 g/dL (31.6-35.5); Mean Corpuscular Hemoglobin 30.9 pg (28.0-33.3); Mean Corpuscular Volume 93.1 fL (83.0-100.0); Mean Platelet Volume 10.6 fL (9.4-12.4); Monocytes # 0.7 K/mcL (0.0-1.3); Monocytes % 11.1 %; Neutrophils # 4.1 K/mcL (1.6-8.9); Platelet Count 150 K/mcL (140-400); Red Blood Count 2.75 M/mcL (3.82-4.97); Red Cell Distribution Width 13.5 % (11.5-14.5); Segmented Neutrophils % 69.9 %
[2017-11-15 06:34] LABS: Calcium 9.4 mg/dL (8.6-10.3); Potassium 3.6 mEq/L (3.5-5.1)
[2017-11-15 06:42] LABS: INR 1.9
[2017-11-15] MEDS: Ranolazine 500 MG TAB.ER.12H PO SCH ×2 (08:16→20:37)
[2017-11-15] MEDS: Isosorbide MONOnitrate (24 HR) 60 MG TAB.ER.24H PO SCH (08:17)
[2017-11-15] MEDS: Venlafaxine XR (24 HR) 75 MG CAP.ER.24H PO SCH (08:17)
[2017-11-15] MEDS: Cholecalciferol (D-3) 1,000 UNIT TABLET PO SCH (08:17)
[2017-11-15] MEDS: Diltiazem CD (24hr) 240 MG CAPSULE PO SCH (08:17)
--- NOTE | 2017-11-15 09:11 | General Surgery Progress Note ---
<Julia Serrano - Last Filed: 11/15/17 09:08> Date of Encounter: 11/15/17 Time of Encounter: 09:09 - Assessment and Plan (1) Cholecystitis Current Visit: Yes Status: Suspected 67 yo female with atypical symptoms of gallbladder disease. RUQ US indicative of cholelithiasis and probable cholecystitis. -Pain controlled this morning. -Patient NPO for potential surgery today pending INR. -INR 1.9 (s/p 6 units of FFP) -Continue supportive care, pain control, and anti-emetics. (2) CAD (coronary artery disease) Current Visit: Yes Status: Chronic Stress test negative for ischemia. -Echo preserved EF, no segmental wall motion abnormalities. -flat and adynamic troponin elevation in setting of EDD and CKD. Qualifiers: Coronary Disease-Associated Artery/Lesion type: [place] artery [place] vs. transplanted heart: [place] heart Associated angina: angina presence unspecified Qualified Code(s): I25.10 - Atherosclerotic heart disease of [place] coronary artery without angina pectoris (3) Pericardial effusion Current Visit: Yes Status: Acute No definitive features of tamponade. Early features cannot be ruled out. -Management per cardiology. (4) Atrial fibrillation Current Visit: Yes Status: Chronic Sinus rhythm -calcium channel [place] -Antiocoagulation on chronic coumadin. -Coumadin held Qualifiers: Atrial fibrillation type: unspecified Qualified Code(s): I48.91 - Unspecified atrial fibrillation (5) EDD (acute kidney injury) Current Visit: Yes Status: Acute Subjective Patient reports: no new complaints, pain is less, flatus, afebrile (No nausea or vomitting) Objective Vital Signs - Last 8 Hours Temp Pulse Resp BP Pulse Ox 11/15/17 07:18 98.2 F 73 18 170/81 95 11/15/17 03:52 98.4 F 75 16 159/86 94 11/15/17 02:33 99.1 F 74 16 168/92 95 Intake and Output 11/14/17 11/15/17 11/15/17 23:59 07:59 15:59 Intake Total 280 / 280 300 / 300 Output Total 1700 / 1700 1250 / 1250 Balance -1420 / -1420 -950 / -950 Intake: Oral 0 / 0 Blood Product 280 / 280 300 / 300 Plasma Unit [id number] 0 / 0 300 / 300 Plasma Unit [id number] 280 / 280 Output: Catheter 1700 / 1700 1250 / 1250 Urethral (Hendrix) 1200 / 1200 Other: Meal NPO Weight 139.434 kg Blood Glucose* 143 135 Patient Weight 11/15/17 23:59 Weight 139.434 kg - General physical appearance well developed, no distress - Eyes normal ocular movement - ENT normal mucosa - Neck Neck exam: trachea midline - Respiratory normal expansion, normal respiratory effort, clear to auscultation crackles: left (mild bibasilar) - Cardiovascular Cardiovascular exam: Present: RRR, no murmurs/rubs/gallops - Abdomen Abdomen: Present: bowel sounds present, soft, non tender. Absent: guarding, rebound, rigid Hernia: none - Integumentary no rash - Neurologic CN 2-12 grossly intact, normal coordination - Musculoskeletal normal posture - Psychiatric oriented to time, oriented to person, oriented to place, speech is normal, memory intact - Labs 11/15/17 06:03 11/15/17 06:03 Diabetes panel 11/15/17 Range/Units 06:03 Sodium 139 (136-145) mEq/L Potassium 3.6 (3.5-5.1) mEq/L Chloride 101 (98-107) mEq/L Carbon Dioxide 28 (23-29) mEq/L BUN 30 H (8-23) mg/dL Creatinine 2.26 H (0.60-1.20) mg/dL Glucose 139 H (70-105) mg/dL Calcium 9.4 (8.6-10.3) mg/dL Calcium panel 11/15/17 Range/Units 06:03 Calcium 9.4 (8.6-10.3) mg/dL Pituitary panel 11/15/17 Range/Units 06:03 Sodium 139 (136-145) mEq/L Potassium 3.6 (3.5-5.1) mEq/L Chloride 101 (98-107) mEq/L Carbon Dioxide 28 (23-29) mEq/L BUN 30 H (8-23) mg/dL Creatinine 2.26 H (0.60-1.20) mg/dL Glucose 139 H (70-105) mg/dL Calcium 9.4 (8.6-10.3) mg/dL Adrenal panel 11/15/17 Range/Units 06:03 Sodium 139 (136-145) mEq/L Potassium 3.6 (3.5-5.1) mEq/L Chloride 101 (98-107) mEq/L Carbon Dioxide 28 (23-29) mEq/L BUN 30 H (8-23) mg/dL Creatinine 2.26 H (0.60-1.20) mg/dL Glucose 139 H (70-105) mg/dL Calcium 9.4 (8.6-10.3) mg/dL Consult Discharge Plan - Plan Referrals: Kaiden Hammer DO [Primary Care Provider] - <Rajendra Shepard - Last Filed: 11/16/17 11:01> Date of Encounter: 11/16/17 - Assessment and Plan (1) RUQ abdominal pain Current Visit: Yes Status: Acute Objective Vital Signs - Last 8 Hours Temp Pulse Resp BP Pulse Ox 11/16/17 06:53 98.3 F 69 16 155/83 97 11/16/17 03:50 98.3 F 69 17 139/70 93 Intake and Output 11/15/17 11/16/17 11/16/17 23:59 07:59 15:59 Intake Total 0 / 0 200 / 200 0 / 0 Output Total 350 / 350 600 / 600 Balance -350 / -350 -400 / -400 0 / 0 Intake: Oral 0 / 0 200 / 200 0 / 0 Output: Catheter 350 / 350 600 / 600 Other: Meal NPO Breakfast Weight 139.4 kg Blood Glucose* 233 153 Patient Weight 11/16/17 23:59 Weight 139.4 kg - Labs 11/16/17 04:19 11/16/17 04:19 Diabetes panel 11/16/17 Range/Units 04:19 Sodium 137 (136-145) mEq/L Potassium 3.4 L (3.5-5.1) mEq/L Chloride 99 (98-107) mEq/L Carbon Dioxide 29 (23-29) mEq/L BUN 26 H (8-23) mg/dL Creatinine 1.94 H (0.60-1.20) mg/dL Glucose 162 H (70-105) mg/dL Calcium 8.8 (8.6-10.3) mg/dL Calcium panel 11/16/17 Range/Units 04:19 Calcium 8.8 (8.6-10.3) mg/dL Pituitary panel 11/16/17 Range/Units 04:19 Sodium 137 (136-145) mEq/L Potassium 3.4 L (3.5-5.1) mEq/L Chloride 99 (98-107) mEq/L Carbon Dioxide 29 (23-29) mEq/L BUN 26 H (8-23) mg/dL Creatinine 1.94 H (0.60-1.20) mg/dL Glucose 162 H (70-105) mg/dL Calcium 8.8 (8.6-10.3) mg/dL Adrenal panel 11/16/17 Range/Units 04:19 Sodium 137 (136-145) mEq/L Potassium 3.4 L (3.5-5.1) mEq/L Chloride 99 (98-107) mEq/L Carbon Dioxide 29 (23-29) mEq/L BUN 26 H (8-23) mg/dL Creatinine 1.94 H (0.60-1.20) mg/dL Glucose 162 H (70-105) mg/dL Calcium 8.8 (8.6-10.3) mg/dL - Attending Attestation Patient seen and examined; i have reviewed all pertinent labs, imaging, and notes, including this one. I agree with the above assessment and plan and wish to add the following.... INR still elevated; still on add-on schedule; will plan for my partner, Dr. Bunn, to remove her gallbladder; this was discussed with the patient and their family who were in agreement.
[2017-11-15] MEDS: 0.9 % Sodium Chloride 1,000 ML IVC SCH (10:54)
[2017-11-15] MEDS: *HR* OxyCODONE Immed Rel 5 MG TABLET PO PRN (14:58)
[2017-11-15] MEDS ORDERED: *HR* Phytonadione 5 MG TABLET PO ONE (15:27)
--- NOTE | 2017-11-15 15:32 | Internal Med Progress Note ---
Date of Encounter: 11/15/17 Time of Encounter: 15:29 - Assessment and plan (1) Atypical chest pain Current Visit: Yes Status: Resolved Assessment and plan: Chest pain resolved. Troponin trended down to 0.04. Abnormal ECHO results. Cardiology consulted; appreciate input. Stress test negative for ischemia 11/15/2017-currently appears to have resolved. Appreciate cardiology follow- up. Stress test negative for ischemia. According to cardiology patient is considered cleared from a preoperative standpoint. For surgery (2) DVT prophylaxis Current Visit: Yes Status: Acute Assessment and plan: Currently on SCDs. Holding anticoagulation in preparation for surgery. Once she is done with the surgery within 48 hours or as deemed appropriate by the surgical team the patient will need to be started back on anticoagulations with Lovenox to Coumadin bridging. (3) Pericardial effusion Current Visit: Yes Status: Chronic Assessment and plan: per ECHO Cardio eval noted and appreciated, no clinical features of tamponade (4) RUQ abdominal pain Current Visit: Yes Status: Acute Assessment and plan: Ultrasound with suspected cholecystitis. Surgery consulted; appreciate input. Consider inpatient vs outpatient cholecystecomy based on pain control and tolerance of diet. Trop adynamic ECHO remarkable for LA dilation and pericardial effusion Stress test negative today Possible surgery today. (5) Atrial fibrillation Current Visit: Yes Status: Chronic Assessment and plan: Continue home diltiazem Hold Coumadin for surgery. Qualifiers: Atrial fibrillation type: unspecified Qualified Code(s): I48.91 - Unspecified atrial fibrillation (6) CKD (chronic kidney disease) Current Visit: Yes Status: Chronic Assessment and plan: Creatinine noted to be up-trending No nephrotoxc medications noted Patient however, received lasix this morning, continue to monitor Consider renal eval if not improving Qualifiers: Chronic kidney disease stage: stage 2 (mild) Qualified Code(s): N18.2 - Chronic kidney disease, stage 2 (mild) (7) Cholecystitis Current Visit: Yes Status: Suspected Assessment and plan: Surgery hold due to elevated INR. Patient has gotten multiple doses of FFP's over the last few days. I spoke personally with the general surgerypractitioner I will give the patient 5 mg of by mouth vitamin K in an effort to further decrease the INR to a level where surgery can successfully be done. We will repeat an INR tonight as well as in the morning and then proceed as planned. I will make her nothing by mouth after midnight - Time Spent With Patient Greater than 35 minutes - Subjective Interval history: Patient seen and examined at the bedside with the family. Patient is very frustrated that her surgery was canceled yesterday. I explained to her in detail that her INR was the one to blame for this. She denies any ongoing abdominal pain at this point but does express her frustration with the home medication process. She also feels that things are not moving along as quickly as she expected to worsen surgery. - Constitutional Vitals: Temp Pulse Resp BP Pulse Ox 98.3 F 76 16 125/73 96 11/15/17 15:02 11/15/17 15:02 11/15/17 15:02 11/15/17 15:02 11/15/17 15:02 General appearance: Present: A&O X 3, morbidly obese, pleasant, no acute distress Exam: GENERAL: Alert, moderate distress, cooperative, very obese EYES: PERRLA, EOMI EARS: External ears normal, canals clear OROPHARYNX: Lips, mucosa, and tongue normal. Teeth and gums normal. Oropharynx normal. NECK: No jugulovenous distention, No carotid bruits, Carotid pulse normal contour, Supple LUNGS: Lungs clear to auscultation, Good diaphragmatic excursion CARDIAC: Normal S1 and S2; no rubs, murmurs, or gallops ABDOMEN: Abdomen soft, tenderness to palpation along the right upper quadrant no guarding or rigidity, BS normal, No masses or organomegaly EXTREMITIES: Extremities normal, no deformities, edema, clubbing or skin discoloration. Good capillary refill., No ulcers NEURO: Gait normal. Reflexes normal and symmetric. Sensation grossly intact, Cranial nerves II-XII intact PULSES: 2+ radial, 2+ carotid Rest of the exam is non contributory Internal Medicine: Result - Labs CBC & Chem 7: 11/15/17 06:03 11/15/17 06:03 Labs: Short CBC 11/15/17 Range/Units 06:03 WBC 5.9 (4.3-11.1) K/mcL Hgb 8.5 L (11.5-15.4) g/dL Hct 25.6 L (35.3-44.9) % Plt Count 150 (140-400) K/mcL Neutrophils # 4.1 (1.6-8.9) K/mcL BMP 11/15/17 06:03 Sodium 139 Potassium 3.6 Chloride 101 Carbon Dioxide 28 BUN 30 H Creatinine 2.26 H Glucose 139 H Calcium 9.4 - ABG Interpretation ABG results: PT/INR, D-dimer PT 21.0 Seconds (9.4-12.1) H 11/15/17 06:03 D-Dimer 703 ng/mLFEU (0-500) H 11/09/17 11:23 Consult Discharge Plan - Plan Referrals: Kaiden Hammer DO [Primary Care Provider] -
[2017-11-15] MEDS: Aspirin Enteric Coated 81 MG Tablet PO SCH (18:00)
[2017-11-15 20:23] LABS: INR 1.6; Prothrombin Time 17.9 Seconds (9.4-12.1)
[2017-11-16 05:05] LABS: Basophils % 0.3 %; Eosinophils # 0.1 K/mcL (0.0-0.6); Eosinophils % 1.7 %; Hematocrit 25.1 % (35.3-44.9); Hemoglobin 8.2 g/dL (11.5-15.4); Immature Granulocytes % 1.4 % (0-4); Lymphocytes # 1.3 K/mcL (0.6-4.6); Mean Corpuscular HGB Conc 32.7 g/dL (31.6-35.5); Mean Corpuscular Hemoglobin 30.5 pg (28.0-33.3); Mean Corpuscular Volume 93.3 fL (83.0-100.0); Mean Platelet Volume 10.8 fL (9.4-12.4); Monocytes # 0.7 K/mcL (0.0-1.3); Monocytes % 11.4 %; Neutrophils # 4.3 K/mcL (1.6-8.9); Platelet Count 161 K/mcL (140-400); Red Blood Count 2.69 M/mcL (3.82-4.97); Red Cell Distribution Width 13.3 % (11.5-14.5); Segmented Neutrophils % 65.2 %
[2017-11-16 05:18] LABS: INR 1.5; Prothrombin Time 15.8 Seconds (9.4-12.1)
[2017-11-16 05:21] LABS: Calcium 8.8 mg/dL (8.6-10.3); Potassium 3.4 mEq/L (3.5-5.1)
[2017-11-16] MEDS: 0.9 % Sodium Chloride 1,000 ML IVC SCH ×3 (06:41→19:56)
[2017-11-16] MEDS: Insulin LISPRO 300 UNITS/3 ML VIAL SQ SCH ×4 (06:44→18:43)
[2017-11-16] MEDS: Venlafaxine XR (24 HR) 75 MG CAP.ER.24H PO SCH (08:30)
[2017-11-16] MEDS: Isosorbide MONOnitrate (24 HR) 60 MG TAB.ER.24H PO SCH (08:30)
[2017-11-16] MEDS: Diltiazem CD (24hr) 240 MG CAPSULE PO SCH (08:30)
[2017-11-16] MEDS: Cholecalciferol (D-3) 1,000 UNIT TABLET PO SCH (08:30)
[2017-11-16] MEDS: Ranolazine 500 MG TAB.ER.12H PO SCH ×2 (08:30→19:56)
[2017-11-16] MEDS ORDERED: *HR* LORazepam 1 MG TABLET PO ONE (10:26)
--- NOTE | 2017-11-16 11:10 | Internal Med Progress Note ---
Date of Encounter: 11/16/17 Time of Encounter: 11:09 - Assessment and plan (1) RUQ abdominal pain Current Visit: Yes Status: Acute Assessment and plan: Ultrasound with suspected cholecystitis. Surgery consulted; appreciate input. Delores Considering surgery here versus transfer to [facility]. Trop adynamic Cleared from cardiac standpoint. Still needs to get a Stu from radiology regarding the adrenal mass. I had a detailed ashen with family and surgeon at the bedside. Plan is to Obtain a CT scan without contrast to better delineate the adrenal mass. If the CAT scan is suspicious we will need to go with IR to place a gallbladder drain to help alleviate the symptoms while the adrenal mass is being worked up. (2) Cholecystitis Current Visit: Yes Status: Suspected Assessment and plan: INR today is improved. However the issue is clearance from the adrenal mass standpoint. Plan as above If the patient does decide to go for surgical intervention to [facility] in [place] , I would start anticoagulation in the form of Lovenox or heparin drip prior to her transfer. CT scan as outlined (3) Adrenal adenoma Current Visit: Yes Status: Chronic Assessment and plan: Spoke to surgeons at length about this finding in the last ultrasound. The adrenal mass does seem to have increased in size a little bit since 2014. They want to be absolutely sure that this is not a pheochromocytoma Clinically the suspicion for metanephrine releasing tumor is low. Plan is to obtain a noncontrast CT scan and if the tissue appears fat laden to have further plan for surgery. The family has expressed interest in not having a surgical procedure done at [place] . However the area to make up their decision on the transfer and we will do as requested by the family Qualifiers: Laterality: right Qualified Code(s): D35.01 - Benign neoplasm of right adrenal gland (4) Atypical chest pain Current Visit: Yes Status: Resolved Assessment and plan: Chest pain resolved. Troponin trended down to 0.04. Abnormal ECHO results. Cardiology consulted; appreciate input. Stress test negative for ischemia 11/15/2017-currently appears to have resolved. Appreciate cardiology follow- up. Stress test negative for ischemia. According to cardiology patient is considered cleared from a preoperative standpoint. For surgery (5) DVT prophylaxis Current Visit: Yes Status: Acute Assessment and plan: Currently on SCDs. Holding anticoagulation in preparation for surgery. Once she is done with the surgery within 48 hours or as deemed appropriate by the surgical team the patient will need to be started back on anticoagulations with Lovenox to Coumadin bridging. If however, the patient gets transferred to [place] sooner, we will start therapeutic dose Lovenox or heparin drip (6) Pericardial effusion Current Visit: Yes Status: Chronic Assessment and plan: per ECHO Cardio eval noted and appreciated, no clinical features of tamponade (7) Atrial fibrillation Current Visit: Yes Status: Chronic Assessment and plan: Continue home diltiazem Hold Coumadin for surgery. Qualifiers: Atrial fibrillation type: unspecified Qualified Code(s): I48.91 - Unspecified atrial fibrillation (8) CKD (chronic kidney disease) Current Visit: Yes Status: Chronic Assessment and plan: Creatinine noted to be up-trending No nephrotoxc medications noted Patient however, received lasix this morning, continue to monitor Consider renal eval if not improving Qualifiers: Chronic kidney disease stage: stage 2 (mild) Qualified Code(s): N18.2 - Chronic kidney disease, stage 2 (mild) - Time Spent With Patient Greater than 35 minutes (Majority of the time spending and coordinating the care and [id number] counseling) - Subjective Interval history: Patient denies any new abdominal pain or fevers or chills at this point. - Constitutional Vitals: Temp Pulse Resp BP Pulse Ox 98.3 F 69 16 155/83 97 11/16/17 06:53 11/16/17 06:53 11/16/17 06:53 11/16/17 06:53 11/16/17 06:53 General appearance: Present: A&O X 3, morbidly obese, pleasant, no acute distress Exam: GENERAL: Alert, moderate distress, cooperative, very obese EYES: PERRLA, EOMI EARS: External ears normal, canals clear OROPHARYNX: Lips, mucosa, and tongue normal. Teeth and gums normal. Oropharynx normal. NECK: No jugulovenous distention, No carotid bruits, Carotid pulse normal contour, Supple LUNGS: Lungs clear to auscultation, Good diaphragmatic excursion CARDIAC: Normal S1 and S2; no rubs, murmurs, or gallops ABDOMEN: Abdomen soft, tenderness to palpation along the right upper quadrant no guarding or rigidity, BS normal, No masses or organomegaly EXTREMITIES: Extremities normal, no deformities, edema, clubbing or skin discoloration. Good capillary refill., No ulcers NEURO: Gait normal. Reflexes normal and symmetric. Sensation grossly intact, Cranial nerves II-XII intact PULSES: 2+ radial, 2+ carotid Rest of the exam is non contributory Internal Medicine: Result - Labs CBC & Chem 7: 11/16/17 04:19 11/16/17 04:19 Labs: Short CBC 11/16/17 Range/Units 04:19 WBC 6.5 (4.3-11.1) K/mcL Hgb 8.2 L (11.5-15.4) g/dL Hct 25.1 L (35.3-44.9) % Plt Count 161 (140-400) K/mcL Neutrophils # 4.3 (1.6-8.9) K/mcL BMP 11/16/17 04:19 Sodium 137 Potassium 3.4 L Chloride 99 Carbon Dioxide 29 BUN 26 H Creatinine 1.94 H Glucose 162 H Calcium 8.8 - ABG Interpretation ABG results: PT/INR, D-dimer PT 15.8 Seconds (9.4-12.1) H 11/16/17 04:19 D-Dimer 703 ng/mLFEU (0-500) H 11/09/17 11:23 Consult Discharge Plan - Plan Referrals: Kaiden Hammer DO [Primary Care Provider] -
[2017-11-16] MEDS ORDERED: *HR* Heparin 5,000 UNIT/ML VIAL IVP PRN ×2 (13:51)
--- NOTE | 2017-11-16 13:51 | Event Note ---
Date of Encounter: 11/16/17 Time of Encounter: 13:47 CT abdomen revealed increased size of right adrenal gland mass, suspect hemorrhage. General surgery Dr. Bunn discussed the results with patient and family. Patient and her family agreed to stay. Dr. Bunn planned further workup of renal gland mass and she will order relevant lab tests. At this time , surgery was postponed pending adrenal mass workup. I will restart heparin drip today per surgery recommendation. The above plan will be updated to Dr. Camp.
--- NOTE | 2017-11-16 15:03 | General Surgery Progress Note ---
Date of Encounter: 11/16/17 Time of Encounter: 14:55 - Assessment and Plan (1) Adrenal mass, right Current Visit: Yes Status: Chronic discussed with patient and family given the size, increasing size of this mass and no previous work up, I am not comfortable going to the OR and subjecting the patient to anesthesia without workup. Family and patient was very upset regarding this but understood. Discussed with radiology re best possible imaging CT vs MRI as patient cannot have IVP dye or gadolinium due to renal disease and recent Cr 2.9. CT abd/pelvis w/o contrast was given and lesion has grown since 2015. Lesion does not have homogenous appearance, some of lesion appears to be a benign adenoma, other parts appear hemorrhagic but could have solid compenents as unable to get adequate imaging. Patient does complain of intermittent flushing episodes, has HTN, diabetes, morbid obesity, Afib. Will start on fulls, do not want to induce another episode of gallbladder symptoms ok to start on heparin drip will order 24 hr urine vma, metanephrines and catecholamines, low dose dexamethasone suppression test and renin activity and aldosterone level, if work up ends up being negative will proceed with gallbladder (2) Symptomatic cholelithiasis Current Visit: Yes Status: Chronic ok for fulls monitor for symptoms Subjective Patient reports: no new complaints, still having pain, flatus, no bowel movement , afebrile Objective Vital Signs - Last 8 Hours Temp Pulse Resp BP Pulse Ox 11/16/17 11:07 98.2 F 66 14 152/82 95 Intake and Output 11/15/17 11/16/17 11/16/17 23:59 07:59 15:59 Intake Total 0 / 0 200 / 200 0 / 0 Output Total 350 / 350 600 / 600 150 / 150 Balance -350 / -350 -400 / -400 -150 / -150 Intake: Oral 0 / 0 200 / 200 0 / 0 Output: Catheter 350 / 350 600 / 600 150 / 150 Other: Meal NPO Lunch Weight 139.4 kg Blood Glucose* 233 153 187 Patient Weight 11/16/17 23:59 Weight 139.4 kg - General physical appearance well nourished, no distress, obese - Eyes PERRL, normal ocular movement - ENT normal mucosa, normocephalic - Neck Neck exam: trachea midline - Respiratory normal expansion, clear to auscultation - Cardiovascular Cardiovascular exam: Present: irregular rhythm - Abdomen Abdomen: Present: bowel sounds present, soft, tender. Absent: guarding, rebound Abdominal Tenderness: RUQ - Integumentary no rash, no growths - Neurologic CN 2-12 grossly intact - Musculoskeletal normal posture - Psychiatric oriented to time, oriented to person, oriented to place, speech is normal, memory intact - Labs 11/16/17 04:19 11/16/17 04:19 Diabetes panel 11/16/17 Range/Units 04:19 Sodium 137 (136-145) mEq/L Potassium 3.4 L (3.5-5.1) mEq/L Chloride 99 (98-107) mEq/L Carbon Dioxide 29 (23-29) mEq/L BUN 26 H (8-23) mg/dL Creatinine 1.94 H (0.60-1.20) mg/dL Glucose 162 H (70-105) mg/dL Calcium 8.8 (8.6-10.3) mg/dL Calcium panel 11/16/17 Range/Units 04:19 Calcium 8.8 (8.6-10.3) mg/dL Pituitary panel 11/16/17 Range/Units 04:19 Sodium 137 (136-145) mEq/L Potassium 3.4 L (3.5-5.1) mEq/L Chloride 99 (98-107) mEq/L Carbon Dioxide 29 (23-29) mEq/L BUN 26 H (8-23) mg/dL Creatinine 1.94 H (0.60-1.20) mg/dL Glucose 162 H (70-105) mg/dL Calcium 8.8 (8.6-10.3) mg/dL Adrenal panel 11/16/17 Range/Units 04:19 Sodium 137 (136-145) mEq/L Potassium 3.4 L (3.5-5.1) mEq/L Chloride 99 (98-107) mEq/L Carbon Dioxide 29 (23-29) mEq/L BUN 26 H (8-23) mg/dL Creatinine 1.94 H (0.60-1.20) mg/dL Glucose 162 H (70-105) mg/dL Calcium 8.8 (8.6-10.3) mg/dL - Imaging CT scan - abdomen: report reviewed, image reviewed CT scan - pelvis: report reviewed, image reviewed US - abdomen: report reviewed Consult Discharge Plan - Plan Referrals: Kaiden Hammer DO [Primary Care Provider] -
[2017-11-16] MEDS: Heparin 25,000 UNIT/500 ML D5W 25,000 UNIT/500 ML BAG IVC SCH (15:06)
[2017-11-16] MEDS: Aspirin Enteric Coated 81 MG Tablet PO SCH (17:30)
[2017-11-17] MEDS: Insulin LISPRO 300 UNITS/3 ML VIAL SQ SCH ×6 (00:18→21:36)
[2017-11-17] MEDS: Heparin 25,000 UNIT/500 ML D5W 25,000 UNIT/500 ML BAG IVC SCH ×2 (05:02→17:46)
[2017-11-17] MEDS: 0.9 % Sodium Chloride 1,000 ML IVC SCH (05:47)
[2017-11-17 06:19] LABS: Basophils % 0.4 %; Eosinophils % 0.6 %; Hematocrit 27.2 % (35.3-44.9); Hemoglobin 8.8 g/dL (11.5-15.4); Immature Granulocytes % 1.1 % (0-4); Lymphocytes # 0.7 K/mcL (0.6-4.6); Lymphocytes % 12.5 %; Mean Corpuscular HGB Conc 32.4 g/dL (31.6-35.5); Mean Corpuscular Hemoglobin 30.2 pg (28.0-33.3); Mean Corpuscular Volume 93.5 fL (83.0-100.0); Mean Platelet Volume 11.2 fL (9.4-12.4); Monocytes # 0.3 K/mcL (0.0-1.3); Monocytes % 6.2 %; Neutrophils # 4.2 K/mcL (1.6-8.9); Platelet Count 170 K/mcL (140-400); Red Blood Count 2.91 M/mcL (3.82-4.97); Red Cell Distribution Width 13.1 % (11.5-14.5); Segmented Neutrophils % 79.2 %
[2017-11-17 08:14] LABS: INR 1.3; Prothrombin Time 14.5 Seconds (9.4-12.1)
[2017-11-17 08:35] LABS: Calcium 8.7 mg/dL (8.6-10.3); Potassium 3.7 mEq/L (3.5-5.1)
[2017-11-17] MEDS: Isosorbide MONOnitrate (24 HR) 60 MG TAB.ER.24H PO SCH (08:55)
[2017-11-17] MEDS: Diltiazem CD (24hr) 240 MG CAPSULE PO SCH (08:55)
[2017-11-17] MEDS: Ranolazine 500 MG TAB.ER.12H PO SCH ×2 (08:55→21:35)
[2017-11-17] MEDS: Venlafaxine XR (24 HR) 75 MG CAP.ER.24H PO SCH (08:55)
[2017-11-17] MEDS: Cholecalciferol (D-3) 1,000 UNIT TABLET PO SCH (08:55)
--- NOTE | 2017-11-17 10:22 | General Surgery Progress Note ---
Date of Encounter: 11/17/17 Time of Encounter: 10:20 - Assessment and Plan (1) Adrenal mass, right Current Visit: Yes Status: Chronic awaiting results from labs for adrenal mass work up (2) Symptomatic cholelithiasis Current Visit: Yes Status: Chronic tolerated fulls without increased abdominal pain, or discomfort, ok to advance to diabetic low fat diet monitor for symptoms Subjective Patient reports: no new complaints, feels better, tolerating liquids well, flatus, no bowel movement, afebrile Objective Vital Signs - Last 8 Hours Temp Pulse Resp BP Pulse Ox 11/17/17 06:46 98.2 F 66 16 173/81 95 11/17/17 03:46 98.4 F 69 16 179/79 97 Intake and Output 11/16/17 11/17/17 11/17/17 22:59 07:59 15:59 Intake Total 144 / 144 Output Total Balance 144 / 144 Intake: IV Fluids 144 / 144 0.9 % Sodium Chloride 1,000 ML @ 100 mls/hr IVC .Q10H [facility] Rx#: [id number] Heparin 25,000 UNIT/500 ML D5W 144 / 144 25,000 unit In 500 ml @ 14 UNIT /KG/HR 39.032 mls/hr IVC . [id number] [facility] Rx#:[id number] Oral Output: Catheter Other: Stool Size Stool Consistency Stool Color # Bowel Movements Blood Glucose* - General physical appearance well developed, well nourished, no distress, obese - Eyes PERRL, normal ocular movement - ENT normal mucosa, normocephalic - Neck Neck exam: trachea midline - Respiratory normal expansion, clear to auscultation - Cardiovascular Cardiovascular exam: Present: irregular rhythm - Abdomen Abdomen: Present: bowel sounds present, soft, tender Abdominal Tenderness: RUQ (but less than yesterday) - Integumentary no rash, no growths - Neurologic CN 2-12 grossly intact - Musculoskeletal normal posture - Psychiatric oriented to time, oriented to person, oriented to place, speech is normal, memory intact - Labs 11/17/17 05:35 11/17/17 05:35 Short CBC 11/17/17 Range/Units 05:35 WBC 5.3 (4.3-11.1) K/mcL Hgb 8.8 L (11.5-15.4) g/dL Hct 27.2 L (35.3-44.9) % Plt Count 170 (140-400) K/mcL Neutrophils # 4.2 (1.6-8.9) K/mcL BMP 11/17/17 Range/Units 05:35 Sodium 138 (136-145) mEq/L Potassium 3.7 (3.5-5.1) mEq/L Chloride 101 (98-107) mEq/L Carbon Dioxide 27 (23-29) mEq/L BUN 23 (8-23) mg/dL Creatinine 1.82 H (0.60-1.20) mg/dL Glucose 228 H (70-105) mg/dL Calcium 8.7 (8.6-10.3) mg/dL Vital Signs Temp Pulse Resp BP Pulse Ox 11/17/17 06:46 98.2 F 66 16 173/81 95 11/17/17 03:46 98.4 F 69 16 179/79 97 11/17/17 00:03 98.6 F 73 16 171/78 95 11/16/17 19:12 98.4 F 65 16 134/80 96 11/16/17 15:33 98.5 F 74 15 162/84 95 11/16/17 11:07 98.2 F 66 14 152/82 95 Intake and Output 11/16/17 11/17/17 11/17/17 22:59 07:59 15:59 Intake Total 144 / 144 Output Total Balance 144 / 144 Intake: IV Fluids 144 / 144 0.9 % Sodium Chloride 1,000 ML @ 100 mls/hr IVC .Q10H [facility] Rx#: [id number] Heparin 25,000 UNIT/500 ML D5W 144 / 144 25,000 unit In 500 ml @ 14 UNIT /KG/HR 39.032 mls/hr IVC . [id number] [facility] Rx#:[id number] Oral Output: Catheter Other: Stool Size Stool Consistency Stool Color # Bowel Movements Blood Glucose* Consult Discharge Plan - Plan Referrals: Kaiden Hammer DO [Primary Care Provider] -
--- NOTE | 2017-11-17 10:35 | Internal Med Progress Note ---
Date of Encounter: 11/17/17 Time of Encounter: 10:31 - Assessment and plan (1) RUQ abdominal pain Current Visit: Yes Status: Acute Assessment and plan: Ultrasound with suspected cholecystitis. Surgery consulted; appreciate input. Considering surgery here versus transfer to [place]. Trop adynamic -Cleared from cardiac standpoint. Still needs to get a Stu from radiology regarding the adrenal mass. I had a detailed discussion with family and surgeon at the bedside. Plan is to Obtain a CT scan without contrast to better delineate the adrenal mass. If the CAT scan is suspicious we will need to go with IR to place a gallbladder drain to help alleviate the symptoms while the adrenal mass is being worked up. 11/17/2017-CT scan shows a 5 x 4 cm adrenal mass which has areas consistent with lipoma and some areas consistent with prior hemorrhage and solid areas. Patient has now decided to work along with general surgery and workup for pheochromocytoma has been initiated in this hospitalization. Patient does have history of occasional flushing and is currently on 3 different antihypertensives. She was slightly hypertensive before her morning meds and I am going to increase her beta blockade to 25 mg by mouth twice a day of metoprolol. Ideally if pheochromocytoma is confirmed this patient needs to be on both alpha and beta blockade prior to surgery. Labetalol would be an acceptable drug to switch her to perioperatively. For now she appears to be stable and we will continue to monitor her very closely. If the workup for pheochromocytoma comes back negative, she can be taken to cholecystectomy sooner (2) Cholecystitis Current Visit: Yes Status: Suspected Assessment and plan: INR today is improved. However the issue is clearance from the adrenal mass standpoint. Plan as above If the patient does decide to go for surgical intervention to [facility] in [place] , I would start anticoagulation in the form of Lovenox or heparin drip prior to her transfer. CT scan as outlined 11/17/2017-given that the surgical plans are not immediate, patient's diet has been advanced by general surgery. I will also initiated her on IV heparin in view of her prior DVTs and A. fib history. Further anticoagulation is to be determined based on surgical plans. At the very least this patient will need bridging from Lovenox to Coumadin at the time of discharge (3) Adrenal adenoma Current Visit: Yes Status: Chronic Assessment and plan: See assessment and plan above Qualifiers: Laterality: right Qualified Code(s): D35.01 - Benign neoplasm of right adrenal gland (4) Atypical chest pain Current Visit: Yes Status: Resolved Assessment and plan: Chest pain resolved. Troponin trended down to 0.04. Abnormal ECHO results. Cardiology consulted; appreciate input. Stress test negative for ischemia 11/15/2017-currently appears to have resolved. Appreciate cardiology follow- up. Stress test negative for ischemia. According to cardiology patient is considered cleared from a preoperative standpoint. For surgery (5) DVT prophylaxis Current Visit: Yes Status: Acute Assessment and plan: Currently on IV heparin drip (6) Pericardial effusion Current Visit: Yes Status: Chronic Assessment and plan: per ECHO Cardio eval noted and appreciated, no clinical features of tamponade (7) Atrial fibrillation Current Visit: Yes Status: Chronic Assessment and plan: Continue home diltiazem Hold Coumadin for surgery. Qualifiers: Atrial fibrillation type: unspecified Qualified Code(s): I48.91 - Unspecified atrial fibrillation (8) CKD (chronic kidney disease) Current Visit: Yes Status: Chronic Assessment and plan: Creatinine stable. Continue to monitor Qualifiers: Chronic kidney disease stage: stage 2 (mild) Qualified Code(s): N18.2 - Chronic kidney disease, stage 2 (mild) - Time Spent With Patient Greater than 35 minutes - Subjective Interval history: Patient denies any new abdominal pain or fevers or chills at this point. Appears to be much more comfortable since yesterday - Constitutional Vitals: Temp Pulse Resp BP Pulse Ox 98.2 F 66 16 173/81 95 11/17/17 06:46 11/17/17 06:46 11/17/17 06:46 11/17/17 06:46 11/17/17 06:46 General appearance: Present: A&O X 3, morbidly obese, pleasant, no acute distress Exam: GENERAL: Alert, does not appear to be an distress, cooperative, very obese EYES: PERRLA, EOMI EARS: External ears normal, canals clear OROPHARYNX: Lips, mucosa, and tongue normal. Teeth and gums normal. Oropharynx normal. NECK: No jugulovenous distention, No carotid bruits, Carotid pulse normal contour, Supple LUNGS: Lungs clear to auscultation, Good diaphragmatic excursion CARDIAC: Normal S1 and S2; no rubs, murmurs, or gallops ABDOMEN: Abdomen soft, tenderness to palpation along the right upper quadrant no guarding or rigidity, BS normal, No masses or organomegaly EXTREMITIES: Extremities normal, no deformities, edema, clubbing or skin discoloration. Good capillary refill., No ulcers NEURO: Gait normal. Reflexes normal and symmetric. Sensation grossly intact, Cranial nerves II-XII intact PULSES: 2+ radial, 2+ carotid Rest of the exam is non contributory Internal Medicine: Result - Labs CBC & Chem 7: 11/17/17 05:35 11/17/17 05:35 Labs: Short CBC 11/17/17 Range/Units 05:35 WBC 5.3 (4.3-11.1) K/mcL Hgb 8.8 L (11.5-15.4) g/dL Hct 27.2 L (35.3-44.9) % Plt Count 170 (140-400) K/mcL Neutrophils # 4.2 (1.6-8.9) K/mcL BMP 11/17/17 05:35 Sodium 138 Potassium 3.7 Chloride 101 Carbon Dioxide 27 BUN 23 Creatinine 1.82 H Glucose 228 H Calcium 8.7 - ABG Interpretation ABG results: PT/INR, D-dimer PT 14.5 Seconds (9.4-12.1) H 11/17/17 05:35 D-Dimer 703 ng/mLFEU (0-500) H 11/09/17 11:23 - Impressions Impressions Abdomen/Pelvis CT 11/16/17 09:31 IMPRESSION: 1. Continued gradual increase in size of a 5.3 cm x 4.4 cm right adrenal lesion. Hypodense portions of the lesion meet criteria for adenoma. The hyperdense portions are suspected to be represent blood products in the setting of prior hemorrhage. Evaluation for a collision tumor with component such as pheochromocytoma is limited without intravenous contrast administration on either CT or MRI. 2. Cholelithiasis and moderate gallbladder distention without other secondary findings of cholecystitis. Consider further evaluation with a nuclear medicine hepatobiliary scan if there are clinical findings of cholecystitis. 3. Trace bilateral effusions with associated minimal bilateral lower lobe passive atelectasis. Suspicion for superimposed pneumonia in both lower lobes. 4. Additional incidental findings as above for which no follow-up is recommended. D/ / Otoniel Pabon MD / Otoniel Pabon MD Interpreting Provider: Otoniel Pabon MD Consult Discharge Plan - Plan Referrals: Kaiden Hammer DO [Primary Care Provider] -
[2017-11-17] MEDS: Aspirin Enteric Coated 81 MG Tablet PO SCH (17:51)
[2017-11-17] MEDS ORDERED: *HR* Dextrose 50 % in Water (Syg) 50 ML SYRINGE IVP PRN (21:01)
[2017-11-17] MEDS ORDERED: D5% in Water 1,000 ML IVC PRN (21:01)
[2017-11-17] MEDS ORDERED: Dextrose Gel 15 GM/37.5 ML TUBE PO PRN ×2 (21:01)
[2017-11-17] MEDS: *HR* OxyCODONE Immed Rel 5 MG TABLET PO PRN (21:35)
[2017-11-18 05:08] LABS: Basophils % 0.3 %; Eosinophils # 0.1 K/mcL (0.0-0.6); Eosinophils % 1.5 %; Hematocrit 25.4 % (35.3-44.9); Hemoglobin 8.2 g/dL (11.5-15.4); Immature Granulocytes % 1.2 % (0-4); Lymphocytes # 1.8 K/mcL (0.6-4.6); Lymphocytes % 24.4 %; Mean Corpuscular HGB Conc 32.3 g/dL (31.6-35.5); Mean Corpuscular Hemoglobin 30.1 pg (28.0-33.3); Mean Corpuscular Volume 93.4 fL (83.0-100.0); Monocytes # 0.6 K/mcL (0.0-1.3); Monocytes % 7.6 %; Neutrophils # 4.8 K/mcL (1.6-8.9); Platelet Count 197 K/mcL (140-400); Red Blood Count 2.72 M/mcL (3.82-4.97); Red Cell Distribution Width 13.2 % (11.5-14.5)
[2017-11-18 05:23] LABS: INR 1.3; Prothrombin Time 14.3 Seconds (9.4-12.1)
[2017-11-18] MEDS: Heparin 25,000 UNIT/500 ML D5W 25,000 UNIT/500 ML BAG IVC SCH ×2 (07:46→20:33)
[2017-11-18] MEDS: Venlafaxine XR (24 HR) 75 MG CAP.ER.24H PO SCH (07:48)
[2017-11-18] MEDS: Ranolazine 500 MG TAB.ER.12H PO SCH ×2 (07:48→20:35)
[2017-11-18] MEDS: Insulin LISPRO 300 UNITS/3 ML VIAL SQ SCH ×4 (07:48→20:34)
[2017-11-18] MEDS: Isosorbide MONOnitrate (24 HR) 60 MG TAB.ER.24H PO SCH (07:49)
[2017-11-18] MEDS: Diltiazem CD (24hr) 240 MG CAPSULE PO SCH (07:49)
[2017-11-18] MEDS: Cholecalciferol (D-3) 1,000 UNIT TABLET PO SCH (07:51)
--- NOTE | 2017-11-18 08:05 | Internal Med Progress Note ---
Date of Encounter: 11/18/17 Time of Encounter: 08:03 - Assessment and plan (1) Cholecystitis Current Visit: Yes Status: Suspected Assessment and plan: The patient's INR is not the issue anymore. Patient has been cleared by cardiology for surgery. The only thing that is holding the patient for surgery is the workup for the adrenal mass. Awaiting final results. Appreciate surgery 's help. Continue pain control. Diet per surgery (2) Adrenal mass, right Current Visit: Yes Status: Chronic Assessment and plan: Being worked up with the results still pending. (3) Elevated troponin Current Visit: Yes Status: Acute Assessment and plan: Negative stress test. Cardiology was following and signed off on the patient. (4) Atrial fibrillation Current Visit: Yes Status: Chronic Assessment and plan: Continue home diltiazem and beta [place] Hold Coumadin for surgery. Currently on heparin drip Qualifiers: Atrial fibrillation type: unspecified Qualified Code(s): I48.91 - Unspecified atrial fibrillation (5) CKD (chronic kidney disease) Current Visit: Yes Status: Chronic Assessment and plan: Creatinine stable. Continue to monitor Qualifiers: Chronic kidney disease stage: stage 2 (mild) Qualified Code(s): N18.2 - Chronic kidney disease, stage 2 (mild) (6) DVT prophylaxis Current Visit: Yes Status: Acute Assessment and plan: Currently on IV heparin drip - Subjective Interval history: Patient was seen and examined. No acute events. Afebrile. Admitted with chest pain initially found to have cholecystitis. Surgery is following with surgery initially being delayed due to elevated INR. Received FFP transfusions. Later in the stay the patient was found to have an adrenal lesion that is increasing in size. Surgery has been delayed until workup of this lesion is finished. - Constitutional Vitals: Temp Pulse Resp BP Pulse Ox 98.3 F 63 16 146/70 94 11/18/17 05:22 11/18/17 05:22 11/18/17 05:22 11/18/17 05:22 11/18/17 05:22 General appearance: Present: A&O X 3, morbidly obese, pleasant, no acute distress Exam: GEN: NAD CVS: RRR. S1, S2, No m/r/g RESP: CTAB ABD: Soft, right upper quadrant tenderness, ND, +BS EXT: No edema. 2+ DP. No rashes NEURO: Nonfocal Internal Medicine: Result - Labs CBC & Chem 7: 11/18/17 04:42 11/17/17 05:35 Labs: Short CBC 11/18/17 Range/Units 04:42 WBC 7.4 (4.3-11.1) K/mcL Hgb 8.2 L (11.5-15.4) g/dL Hct 25.4 L (35.3-44.9) % Plt Count 197 (140-400) K/mcL Neutrophils # 4.8 (1.6-8.9) K/mcL BMP 11/17/17 05:35 Sodium 138 Potassium 3.7 Chloride 101 Carbon Dioxide 27 BUN 23 Creatinine 1.82 H Glucose 228 H Calcium 8.7 - ABG Interpretation ABG results: PT/INR, D-dimer PT 14.3 Seconds (9.4-12.1) H 11/18/17 04:42 D-Dimer 703 ng/mLFEU (0-500) H 11/09/17 11:23 Consult Discharge Plan - Plan Referrals: Kaiden Hammer DO [Primary Care Provider] -
[2017-11-18 09:40] LABS: Calcium 8.7 mg/dL (8.6-10.3); Potassium 3.7 mEq/L (3.5-5.1)
--- NOTE | 2017-11-18 10:55 | General Surgery Progress Note ---
<Rosa Gann Martir - Last Filed: 11/18/17 10:53> Date of Encounter: 11/18/17 Time of Encounter: 10:45 - Assessment and Plan (1) Adrenal mass, right Current Visit: Yes Status: Chronic Work-up pending for adrenal mass Will await results prior to proceeding with surgical intervention for galllbladder (2) Symptomatic cholelithiasis Current Visit: Yes Status: Chronic Patient tolerating low fat diet Symptoms continue to improve Supportive care Await work-up for adrenal mass prior to surgical intervention Surgery will continue to follow and assess progress Subjective Patient reports: no new complaints, feels better, still having pain, pain is less, tolerating a regular diet (low fat diet), flatus, bowel movement, afebrile Objective Vital Signs - Last 8 Hours Temp Pulse Resp BP Pulse Ox 11/18/17 08:00 94 11/18/17 05:22 98.3 F 63 16 146/70 94 Intake and Output 11/17/17 11/18/17 11/18/17 23:59 07:59 15:59 Intake Total 0 / 0 500 / 500 240 / 240 Output Total 700 / 700 1650 / 1650 Balance -700 / -700 -1150 / -1150 240 / 240 Intake: IV Fluids 500 / 500 Heparin 25,000 UNIT/500 ML D5W 500 / 500 25,000 unit In 500 ml @ 14 UNIT /KG/HR 39.032 mls/hr IVC . [id number] [facility] Rx#:[id number] Oral 0 / 0 0 / 0 240 / 240 Output: Catheter 700 / 700 1650 / 1650 Other: Meal Breakfast Percent of Meal Consumed 100% Stool Size Small Stool Characteristics Mucoid Stool Color White Weight 140.1 kg Blood Glucose* 216 215 Patient Weight 11/18/17 23:59 Weight 140.1 kg - General physical appearance well developed, well nourished, no distress, chronically ill, obese - Eyes normal ocular movement - ENT normal mucosa, atraumatic, normocephalic - Neck Neck exam: trachea midline - Respiratory normal respiratory effort, clear to auscultation - Cardiovascular Cardiovascular exam: Present: RRR - Abdomen Abdomen: Present: bowel sounds present, soft, tender (minimal and improving) Abdominal Tenderness: RUQ (minimal and improving) - Genitourinary other (mccarty catheter to SD with clear, yellow urine) - Neurologic CN 2-12 grossly intact - Psychiatric oriented to time, oriented to person, oriented to place, speech is normal, memory intact - Labs 11/18/17 04:42 11/18/17 08:53 Diabetes panel 11/18/17 Range/Units 08:53 Sodium 136 (136-145) mEq/L Potassium 3.7 (3.5-5.1) mEq/L Chloride 98 (98-107) mEq/L Carbon Dioxide 30 H (23-29) mEq/L BUN 22 (8-23) mg/dL Creatinine 1.93 H (0.60-1.20) mg/dL Glucose 194 H (70-105) mg/dL Calcium 8.7 (8.6-10.3) mg/dL Calcium panel 11/18/17 Range/Units 08:53 Calcium 8.7 (8.6-10.3) mg/dL Pituitary panel 11/18/17 Range/Units 08:53 Sodium 136 (136-145) mEq/L Potassium 3.7 (3.5-5.1) mEq/L Chloride 98 (98-107) mEq/L Carbon Dioxide 30 H (23-29) mEq/L BUN 22 (8-23) mg/dL Creatinine 1.93 H (0.60-1.20) mg/dL Glucose 194 H (70-105) mg/dL Calcium 8.7 (8.6-10.3) mg/dL Adrenal panel 11/18/17 Range/Units 08:53 Sodium 136 (136-145) mEq/L Potassium 3.7 (3.5-5.1) mEq/L Chloride 98 (98-107) mEq/L Carbon Dioxide 30 H (23-29) mEq/L BUN 22 (8-23) mg/dL Creatinine 1.93 H (0.60-1.20) mg/dL Glucose 194 H (70-105) mg/dL Calcium 8.7 (8.6-10.3) mg/dL Consult Discharge Plan - Plan Referrals: Kaiden Hammer DO [Primary Care Provider] - - Attending Attestation For this encounter, I have reviewed the [employer] or PA documentation, treatment plan, and medical decision making; and I have had face to face time with this patient. <Julianne Bunn - Last Filed: 11/19/17 15:39> Date of Encounter: 11/18/17 - Assessment and Plan (1) Adrenal mass, right Current Visit: Yes Status: Chronic discussed with patient cortisol test was normal still awaiting pheo and aldosterinoma labs to result will talk with Dr Lowe regarding patient and possible adrenalectomy because I still feel this large adrenal mass needs to be removed due to size and increased risk of cancer as imaging shows is a heterogenous mass and with patient renal disease cannot get adequate imaging with MRI or CT adrenal protocols without too big of risk to kidneys (2) Symptomatic cholelithiasis Current Visit: Yes Status: Chronic Subjective Narrative: patient tolerating diabetic diet without further pain in RUQ Objective Vital Signs - Last 8 Hours Temp Pulse Resp BP Pulse Ox 11/19/17 14:34 97.8 F 57 17 111/65 96 11/19/17 10:30 98.1 F 60 17 155/69 94 11/19/17 08:28 97.9 F 60 18 150/79 93 11/19/17 08:16 94 Intake and Output 11/18/17 11/19/17 11/19/17 23:59 07:59 15:59 Intake Total 300 / 300 100 / 100 1480 / 1480 Output Total 1450 / 1450 775 / 775 950 / 950 Balance -1150 / -1150 -675 / -675 530 / 530 Intake: IV Fluids 300 / 300 500 / 500 Heparin 25,000 UNIT/500 ML D5W 300 / 300 500 / 500 25,000 unit In 500 ml @ 14 UNIT /KG/HR 39.032 mls/hr IVC . [id number] [facility]LY [facility], [facility] Rx#:[id number] Oral 0 / 0 100 / 100 980 / 980 Output: Catheter 1450 / 1450 775 / 775 950 / 950 Other: Meal Dinner Lunch Percent of Meal Consumed 75% 100% Stool Size Smear Stool Consistency formed Stool Color Brown # Voids 1 Weight 141.2 kg Blood Glucose* 249 247 Patient Weight 11/19/17 23:59 Weight 141.2 kg - General physical appearance well developed, well nourished, no distress, obese - Eyes PERRL, normal ocular movement - ENT normal mucosa, normocephalic - Respiratory normal expansion, clear to auscultation - Cardiovascular Cardiovascular exam: Present: RRR - Abdomen Abdomen: Present: bowel sounds present, soft, tender Abdominal Tenderness: RUQ - Genitourinary other - Integumentary no growths - Neurologic CN 2-12 grossly intact - Musculoskeletal normal posture - Psychiatric oriented to time, oriented to person, oriented to place, speech is normal, memory intact - Labs 11/19/17 04:08 11/19/17 04:08 Diabetes panel 11/19/17 Range/Units 04:08 Sodium 138 (136-145) mEq/L Potassium 3.8 (3.5-5.1) mEq/L Chloride 101 (98-107) mEq/L Carbon Dioxide 29 (23-29) mEq/L BUN 24 H (8-23) mg/dL Creatinine 1.94 H (0.60-1.20) mg/dL Glucose 245 H (70-105) mg/dL Calcium 8.3 L (8.6-10.3) mg/dL Calcium panel 11/19/17 Range/Units 04:08 Calcium 8.3 L (8.6-10.3) mg/dL Pituitary panel 11/19/17 Range/Units 04:08 Sodium 138 (136-145) mEq/L Potassium 3.8 (3.5-5.1) mEq/L Chloride 101 (98-107) mEq/L Carbon Dioxide 29 (23-29) mEq/L BUN 24 H (8-23) mg/dL Creatinine 1.94 H (0.60-1.20) mg/dL Glucose 245 H (70-105) mg/dL Calcium 8.3 L (8.6-10.3) mg/dL Adrenal panel 11/19/17 Range/Units 04:08 Sodium 138 (136-145) mEq/L Potassium 3.8 (3.5-5.1) mEq/L Chloride 101 (98-107) mEq/L Carbon Dioxide 29 (23-29) mEq/L BUN 24 H (8-23) mg/dL Creatinine 1.94 H (0.60-1.20) mg/dL Glucose 245 H (70-105) mg/dL Calcium 8.3 L (8.6-10.3) mg/dL - Attending Attestation I have personally performed a face to face evaluation on this patient. I have reviewed and agree with the care plan. History and Exam by me shows:
[2017-11-18] MEDS: *HR* OxyCODONE Immed Rel 5 MG TABLET PO PRN (12:00)
[2017-11-18] MEDS: Aspirin Enteric Coated 81 MG Tablet PO SCH (16:50)
[2017-11-19 04:36] LABS: Basophils % 0.3 %; Eosinophils # 0.1 K/mcL (0.0-0.6); Eosinophils % 1.3 %; Hemoglobin 8.2 g/dL (11.5-15.4); Immature Granulocytes % 2.2 % (0-4); Lymphocytes # 1.3 K/mcL (0.6-4.6); Lymphocytes % 19.1 %; Mean Corpuscular HGB Conc 32.8 g/dL (31.6-35.5); Mean Corpuscular Hemoglobin 30.5 pg (28.0-33.3); Mean Corpuscular Volume 92.9 fL (83.0-100.0); Monocytes # 0.5 K/mcL (0.0-1.3); Monocytes % 7.2 %; Neutrophils # 4.8 K/mcL (1.6-8.9); Platelet Count 188 K/mcL (140-400); Red Blood Count 2.69 M/mcL (3.82-4.97); Red Cell Distribution Width 13.2 % (11.5-14.5); Segmented Neutrophils % 69.9 %
[2017-11-19] MEDS ORDERED: Acetaminophen 325 MG TABLET PO PRN (04:49)
[2017-11-19 05:02] LABS: INR 1.3; Prothrombin Time 14.1 Seconds (9.4-12.1)
[2017-11-19 05:21] LABS: Calcium 8.3 mg/dL (8.6-10.3); Magnesium 1.5 mg/dL (1.6-2.6); Potassium 3.8 mEq/L (3.5-5.1)
[2017-11-19] MEDS: Isosorbide MONOnitrate (24 HR) 60 MG TAB.ER.24H PO SCH (08:30)
[2017-11-19] MEDS: Venlafaxine XR (24 HR) 75 MG CAP.ER.24H PO SCH (08:31)
[2017-11-19] MEDS: Diltiazem CD (24hr) 240 MG CAPSULE PO SCH (08:31)
[2017-11-19] MEDS: Cholecalciferol (D-3) 1,000 UNIT TABLET PO SCH (08:31)
[2017-11-19] MEDS: Ranolazine 500 MG TAB.ER.12H PO SCH ×2 (08:31→21:21)
[2017-11-19] MEDS: Insulin LISPRO 300 UNITS/3 ML VIAL SQ SCH ×3 (08:33→16:51)
[2017-11-19] MEDS: Heparin 25,000 UNIT/500 ML D5W 25,000 UNIT/500 ML BAG IVC SCH ×2 (10:23→22:53)
--- NOTE | 2017-11-19 11:18 | General Surgery Progress Note ---
Date of Encounter: 11/19/17 Time of Encounter: 11:00 - Assessment and Plan (1) Adrenal mass, right Current Visit: Yes Status: Chronic Work-up pending for adrenal mass Will await results prior to proceeding with surgical intervention for galllbladder Dr. Lowe to assess and evaluate patient today- may require removal of adrenal mass and gallbladder pending work-up Dr. Bunn discussed that this could possibly be completed as an outpatient and the patient verbalized understanding (2) Symptomatic cholelithiasis Current Visit: Yes Status: Chronic Patient tolerating low fat diet Symptoms continue to improve Supportive care Await work-up for adrenal mass prior to surgical intervention Surgery will continue to follow and assess progress Remove mccarty catheter today Continue stool softners BID Add Miralax daily (3) Constipation Current Visit: Yes Status: Acute Continue stool softners BID Add Miralax daily Qualifiers: Constipation type: unspecified constipation type Qualified Code(s): K59.00 - Constipation, unspecified Subjective Patient reports: no new complaints, feels better, tolerating a regular diet, flatus, no bowel movement (Reports no BM in the past 10 days), afebrile Objective Vital Signs - Last 8 Hours Temp Pulse Resp BP Pulse Ox 11/19/17 10:30 98.1 F 60 17 155/69 94 11/19/17 08:28 97.9 F 60 18 150/79 93 11/19/17 08:16 94 11/19/17 04:01 97.9 F 59 17 148/87 94 Intake and Output 11/18/17 11/19/17 11/19/17 23:59 07:59 15:59 Intake Total 300 / 300 100 / 100 1000 / 1000 Output Total 1450 / 1450 775 / 775 950 / 950 Balance -1150 / -1150 -675 / -675 50 / 50 Intake: IV Fluids 300 / 300 500 / 500 Heparin 25,000 UNIT/500 ML D5W 300 / 300 500 / 500 25,000 unit In 500 ml @ 14 UNIT /KG/HR 39.032 mls/hr IVC . [id number] [facility] Rx#:[id number] Oral 0 / 0 100 / 100 500 / 500 Output: Catheter 1450 / 1450 775 / 775 950 / 950 Other: Meal Dinner Percent of Meal Consumed 75% Stool Size Smear Stool Consistency formed Stool Color Brown Weight 141.2 kg Blood Glucose* 249 247 Patient Weight 11/19/17 23:59 Weight 141.2 kg - General physical appearance well developed, well nourished, no distress, no pain, obese - Eyes normal ocular movement - ENT normal mucosa, atraumatic, normocephalic - Neck Neck exam: trachea midline - Respiratory normal respiratory effort - Cardiovascular Cardiovascular exam: Present: irregular rhythm - Abdomen Abdomen: Present: bowel sounds present, soft, non tender - Neurologic CN 2-12 grossly intact - Musculoskeletal normal gait, normal posture - Psychiatric oriented to time, oriented to person, oriented to place, speech is normal, memory intact - Labs 11/19/17 04:08 11/19/17 04:08 Diabetes panel 11/19/17 Range/Units 04:08 Sodium 138 (136-145) mEq/L Potassium 3.8 (3.5-5.1) mEq/L Chloride 101 (98-107) mEq/L Carbon Dioxide 29 (23-29) mEq/L BUN 24 H (8-23) mg/dL Creatinine 1.94 H (0.60-1.20) mg/dL Glucose 245 H (70-105) mg/dL Calcium 8.3 L (8.6-10.3) mg/dL Calcium panel 11/19/17 Range/Units 04:08 Calcium 8.3 L (8.6-10.3) mg/dL Pituitary panel 11/19/17 Range/Units 04:08 Sodium 138 (136-145) mEq/L Potassium 3.8 (3.5-5.1) mEq/L Chloride 101 (98-107) mEq/L Carbon Dioxide 29 (23-29) mEq/L BUN 24 H (8-23) mg/dL Creatinine 1.94 H (0.60-1.20) mg/dL Glucose 245 H (70-105) mg/dL Calcium 8.3 L (8.6-10.3) mg/dL Adrenal panel 11/19/17 Range/Units 04:08 Sodium 138 (136-145) mEq/L Potassium 3.8 (3.5-5.1) mEq/L Chloride 101 (98-107) mEq/L Carbon Dioxide 29 (23-29) mEq/L BUN 24 H (8-23) mg/dL Creatinine 1.94 H (0.60-1.20) mg/dL Glucose 245 H (70-105) mg/dL Calcium 8.3 L (8.6-10.3) mg/dL Consult Discharge Plan - Plan Referrals: Kaiden Hammer DO [Primary Care Provider] - - Attending Attestation For this encounter, I have reviewed the QUALITY CONTROL PROJECTIONIST or PA documentation, treatment plan, and medical decision making; and I have had face to face time with this patient.
--- NOTE | 2017-11-19 16:36 | Internal Med Progress Note ---
Date of Encounter: 11/19/17 Time of Encounter: 11:00 - Assessment and plan (1) Adrenal mass, right Current Visit: Yes Status: Chronic Assessment and plan: Workup for adrenal mass still pending (2) Symptomatic cholelithiasis Current Visit: Yes Status: Chronic Assessment and plan: Gen. surgery following with recommendations to await results for adrenal workup before proceeding with any surgical intervention (3) Atrial fibrillation Current Visit: Yes Status: Chronic Assessment and plan: Rate controlled; patient currently on heparin drip in case of procedure Qualifiers: Atrial fibrillation type: unspecified Qualified Code(s): I48.91 - Unspecified atrial fibrillation (4) Constipation Current Visit: Yes Status: Acute Assessment and plan: Continue MiraLAX Qualifiers: Constipation type: unspecified constipation type Qualified Code(s): K59.00 - Constipation, unspecified (5) CKD (chronic kidney disease) Current Visit: Yes Status: Chronic Assessment and plan: Stable; creatinine at baseline Qualifiers: Chronic kidney disease stage: stage 2 (mild) Qualified Code(s): N18.2 - Chronic kidney disease, stage 2 (mild) (6) DVT prophylaxis Current Visit: Yes Status: Acute Assessment and plan: Patient on a heparin drip now in case a procedure - Subjective Interval history: Patient still reports of some right sided abdominal discomfort Awaiting workup for adrenal mass before proceeding with surgical intervention for cholecystitis - Constitutional Vitals: Temp Pulse Resp BP Pulse Ox 97.8 F 57 17 111/65 96 11/19/17 14:34 11/19/17 14:34 11/19/17 14:34 11/19/17 14:34 11/19/17 14:34 General appearance: Present: A&O X 3, morbidly obese, pleasant, no acute distress - Respiratory Respiratory exam: Present: CTAB. Absent: accessory muscle use, rales, rhonchi, wheezes - Cardiovascular Cardiovascular exam: Present: RRR, +S1, +S2. Absent: diastolic murmur, gallop, rubs, systolic murmur - GI/Abdominal GI/Abdominal exam: Present: soft, tenderness (Generalized tenderness). Absent: distended Internal Medicine: Result - Labs CBC & Chem 7: 11/19/17 04:08 11/19/17 04:08 Labs: Short CBC 11/19/17 Range/Units 04:08 WBC 6.8 (4.3-11.1) K/mcL Hgb 8.2 L (11.5-15.4) g/dL Hct 25.0 L (35.3-44.9) % Plt Count 188 (140-400) K/mcL Neutrophils # 4.8 (1.6-8.9) K/mcL BMP 11/19/17 04:08 Sodium 138 Potassium 3.8 Chloride 101 Carbon Dioxide 29 BUN 24 H Creatinine 1.94 H Glucose 245 H Calcium 8.3 L - ABG Interpretation ABG results: PT/INR, D-dimer PT 14.1 Seconds (9.4-12.1) H 11/19/17 04:08 D-Dimer 703 ng/mLFEU (0-500) H 11/09/17 11:23 Consult Discharge Plan - Plan Referrals: Kaiden Hammer DO [Primary Care Provider] -
[2017-11-19] MEDS: Aspirin Enteric Coated 81 MG Tablet PO SCH (16:46)
[2017-11-19] MEDS: *HR* OxyCODONE Immed Rel 5 MG TABLET PO PRN (19:45)
[2017-11-19] MEDS ORDERED: Insulin LISPRO 300 UNITS/3 ML VIAL SQ SCH (21:00)
[2017-11-20 06:03] LABS: Basophils % 0.4 %; Eosinophils # 0.1 K/mcL (0.0-0.6); Eosinophils % 1.7 %; Hematocrit 26.2 % (35.3-44.9); Hemoglobin 8.3 g/dL (11.5-15.4); Immature Granulocytes % 3.4 % (0-4); Lymphocytes # 2.4 K/mcL (0.6-4.6); Lymphocytes % 27.9 %; Mean Corpuscular HGB Conc 31.7 g/dL (31.6-35.5); Mean Corpuscular Volume 94.6 fL (83.0-100.0); Mean Platelet Volume 11.8 fL (9.4-12.4); Monocytes # 0.7 K/mcL (0.0-1.3); Monocytes % 8.1 %; Neutrophils # 4.9 K/mcL (1.6-8.9); Nucleated Red Blood Cells 0.5 /100 WBC (0); Platelet Count 208 K/mcL (140-400); Red Blood Count 2.77 M/mcL (3.82-4.97); Red Cell Distribution Width 13.2 % (11.5-14.5); Segmented Neutrophils % 58.5 %
[2017-11-20] MEDS: Ranolazine 500 MG TAB.ER.12H PO SCH (09:08)
[2017-11-20] MEDS: Isosorbide MONOnitrate (24 HR) 60 MG TAB.ER.24H PO SCH (09:09)
[2017-11-20] MEDS: Diltiazem CD (24hr) 240 MG CAPSULE PO SCH (09:09)
[2017-11-20] MEDS: Cholecalciferol (D-3) 1,000 UNIT TABLET PO SCH (09:10)
[2017-11-20] MEDS: Venlafaxine XR (24 HR) 75 MG CAP.ER.24H PO SCH (09:10)
[2017-11-20] MEDS: Insulin LISPRO 300 UNITS/3 ML VIAL SQ SCH (09:11)
--- NOTE | 2017-11-20 10:32 | Discharge Summary ---
- NOTES TO OUTPATIENT PROVIDER Notes to Outpatient Provider: Patient to follow up with general surgery for recommendations after adrenal mass workup completed Orders not resulted at time of discharge: Pending orders 11/13/17 19:47 PLASMA [BBK] Stat Type and Screen [BBK] Stat 11/17/17 17:00 Catecholamine,Ur [place] or 24hr Stat Metanephrine,Ur Random or 24hr Routine VMA,Ur [place] or 24hr Stat 11/20/17 14:00 PTT [Activated Partial Thrombo Time] [COAG] Timed 11/21/17 04:00 CBC [Complete Blood Count] [HEME] AM 0400 Date of Encounter: 11/20/17 Time of Encounter: 11:00 - Discharge Diagnosis (1) Adrenal mass, right Priority: Primary Status: Chronic (2) Symptomatic cholelithiasis Priority: Primary Status: Chronic (3) Atrial fibrillation Priority: Secondary Status: Chronic Qualifiers: Atrial fibrillation type: unspecified Qualified Code(s): I48.91 - Unspecified atrial fibrillation (4) Constipation Priority: Secondary Status: Acute Qualifiers: Constipation type: unspecified constipation type Qualified Code(s): K59.00 - Constipation, unspecified (5) CKD (chronic kidney disease) Priority: Secondary Status: Chronic Qualifiers: Chronic kidney disease stage: stage 2 (mild) Qualified Code(s): N18.2 - Chronic kidney disease, stage 2 (mild) Hospital course: Patient is a 67-year-old female with past medical history significant for coronary artery disease status post stent placement, hypertension, diabetes, hypothyroid, CKD and atrial fibrillation who presents to the ER on 11/12/17 due to chest pain. She reported of chest pain the morning of admission and stated that it was located under her right breast which radiates to her back. She was also reporting constant nausea, hot flashes, and increased lower extremity edema, as well as lightheadedness. Evaluation emergency department included an EKG which showed no ST changes, normal rate and rhythm, chest x-ray showed cardiomegaly with increased vascular congestion. BNP was normal at 34, d-dimer is mildly elevated at 703. VQ scan was done which was negative for PE. Troponin was negative less than 0.03. INR was therapeutic at 2.2. Creatinine of 1.8 to was consistent with previous results and her history of CKD. Patient was admitted to the medical surgical floor for atypical chest pain. During patients hospital stay cardiology was consulted Echo showed preserved EF. VQ scan showed low probability for PE. Nulcear stress test negative for ischemia. Right upper quadrant ultrasound was done which showed cholelithiasis and probable cholecystitis so Gen. surgery was consulted. In addition patient was also found to have a right adrenal mass and surgical recommendations for a workup before proceeding with cholecystectomy. Since the workup will take over a week, general surgery recommends the patient be discharged to follow-up as outpatient for surgical intervention after adrenal mass workup completed. - Time Spent with Patient Total time spent providing and/or coordinating discharge services: Less than 30 minutes - Discharge Medications Prescriptions: OxyCODONE Immed Rel [Roxicodone 5 MG] 10 mg PO Q6HR PRN 5 Days #20 tablet PRN Reason: Severe Pain Promethazine [Phenergan] 12.5 mg PO Q6HR #30 tablet Metoprolol [Lopressor] 25 mg PO BID #60 tablet Rivaroxaban [Xarelto] 10 mg PO 1700 #30 tablet Home Medications: Meclizine [Antivert] 25 mg PO AD PRN 06/10/15 [History] Aspirin [Adult Low Dose Aspirin EC] 81 mg PO QPM 07/18/15 [History] Cyanocobalamin (Vitamin B-12) [Vitamin B12] 2,500 mg PO QAM 07/18/15 [History] Diltiazem CD (24hr) [Cardizem CD] 240 mg PO QAM 07/18/15 [History] Isosorbide MONOnitrate (24 HR) [Imdur] 90 mg PO QAM 07/18/15 [History] Ranolazine [Ranexa] 1,000 mg PO BID 07/18/15 [History] Rosuvastatin Calcium [Crestor] 10 mg PO QPM 07/18/15 [History] Glimepiride [Amaryl] 3 mg PO QAM 07/21/15 [History] Lansoprazole [Prevacid] 30 mg PO HS 07/21/15 [History] Multivitamin/Iron/Folic Acid [Centrum Complete Multivit Tab] 1 each PO QAM 07/21 [History] Saccharomyces Boulardii [Probiotic] 250 mg PO DAILY 07/21/15 [History] Cholecalciferol (Vitamin D3) [Vitamin D3] 1,000 unit PO DAILY 12/26/16 [History] Denosumab [Prolia (For Outpatient Infusion)] 60 mg SQ Q6M 12/26/16 [History] Losartan Potassium [Cozaar] 50 mg PO DAILY 12/26/16 [History] Mirabegron [Myrbetriq] 50 mg PO HS 12/26/16 [History] Desvenlafaxine Succinate [Desvenlafaxine Succinate ER] 150 mg PO DAILY 11/09/17 [History] Insulin LISPRO [HumaLOG] 10 unit SQ TIDWM 11/09/17 [History] Levothyroxine Sodium 200 mcg PO DAILY 11/09/17 [History] Linagliptin [Tradjenta] 5 mg PO DAILY 11/09/17 [History] Metoprolol [Lopressor] 25 mg PO BID #60 tablet 11/20/17 [Rx] OxyCODONE Immed Rel [Roxicodone 5 MG] 10 mg PO Q6HR PRN 5 Days #20 tablet [Rx] Promethazine [Phenergan] 12.5 mg PO Q6HR #30 tablet 11/20/17 [Rx] Rivaroxaban [Xarelto] 10 mg PO 1700 #30 tablet 11/20/17 [Rx] Allergies/Adverse Reactions: 3 Allergy/AdvReac Type Severity Reaction Status Date / Time sulfamethoxazole AdvReac See Verified 12/26/16 09:31 [From Bactrim] Comments trimethoprim [From Bactrim] AdvReac See Verified 12/26/16 09:31 Comments Date of admission: 11/12/17 15:02 Primary care physician: Kaiden Hammer DO Consults: 11/19/17 15:24 Consult to Physical Therapy [CONS] Stat Comment: Evaluate, develop and implement POC Reason for Consult: ECF vs HH Does patient have active BEDREST order?: No Is patient medically & hemodynamically stable?: Yes Patient assessed for mobility or mobilized this visit?: No - Constitutional Vitals: Temp Pulse Resp BP Pulse Ox 98.1 F 57 14 146/64 93 11/20/17 06:54 11/20/17 06:54 11/20/17 06:54 11/20/17 06:54 11/20/17 06:54 General appearance: Present: A&O X 3, morbidly obese, pleasant, no acute distress - Respiratory Respiratory exam: Present: CTAB. Absent: accessory muscle use, rales, rhonchi, wheezes - Cardiovascular Cardiovascular exam: Present: RRR, +S1, +S2. Absent: diastolic murmur, gallop, rubs, systolic murmur - GI/Abdominal GI/Abdominal exam: Present: normal bowel sounds, soft, no peritoneal signs. Absent: distended, tenderness - Patient Status Disposition: Home, Self-Care - Discharge Instructions Instructions: Atrial Fibrillation (DC), Chest Pain (DC), Diabetes Mellitus Type 2 in Adults (DC) Follow Up With: Rosa Gann CNP [Advanced Practice Nurse] - 11/28/17 11:30 am Kaiden Hammer DO [Primary Care Provider] - 11/26/17 11:00 am Forms: ED Satisfaction Letter
[2017-11-20 10:51] VITALS: BP 163/79
[2017-11-22 16:16] LABS: Urine Collection Duration 24 hr; Urine Collection Volume 1936 mL; Urine Creatinine mg/d 1181 mg/d (500-1400)
[2017-11-23 12:11] LABS: Urine Collection Duration 24 hr; Urine Collection Volume 1936 mL
[2017-11-24 14:37] LABS: Urine Creatinine mg/d 1181 mg/d (500-1400)
[2017-11-24 17:13] LABS: Urine Collection Duration 24 hr; Urine Collection Volume 1936 mL
[2017-11-25 09:12] LABS: Urine Creatinine mg/d 1181 mg/d (500-1400)
== END 2017-11-20 12:00 | disposition home or self-care (01) | DRG 445 ==
LOC: EMEROO 11:02 → 3NENU 11:02 → SUATTDRO 13:59 → 3NENU 14:24 → 3ANU 11-11 14:46 → SUATTDRO 11-12 15:02
PROVIDERS: ADMIT Internal Medicine; ATTEND Hospitalist

== ENCOUNTER 2017-12-13 06:18 | Inpatient (IN) ==
[2017-12-13] MEDS ORDERED: CeFAZolin Syr 3,000MG/30 ML 3,000 MG/30 ML SYRINGE IVPB ONE (06:52)
[2017-12-13] MEDS ORDERED: 0.9 % Sodium Chloride 1,000 ML IVC SCH (07:00)
--- NOTE | 2017-12-13 07:13 | Anesthesia Evaluation PreOp ---
Date of Encounter: 12/13/17 Time of Encounter: 07:11 - Past History Planned Operation: Laparoscopic Cholecystectomy, Adrenalectomy Cardiac History: CHF, HTN, Hyperlipidemia, Arrhythmia (H/O A-Fib), Cardiac Stent (stent x 1, on Xarelto=last dose on 12/09/2017), Other (mild-moderate pericardial effusion, H/O DVT) Pulmonary History: ALEJANDRA Dx DIAGRAMMER History: Denies Any Significant HX Other Medical History: Renal (CKD stage 3), Diabetes Type II, Thyroid, GERD, Other (obesity BMI=51.4, anxiety/depression, fibromyalgia) Anesthesia History: No Prior Anesthetic Complications, Past Anesthesia Alcohol Use: none Drug use: none Medications and Allergies Meclizine [Antivert] 25 mg PO AD PRN 06/10/15 [History] Aspirin [Adult Low Dose Aspirin EC] 81 mg PO QPM 07/18/15 [History] Cyanocobalamin (Vitamin B-12) [Vitamin B12] 2,500 mg PO QAM 07/18/15 [History] Diltiazem CD (24hr) [Cardizem CD] 240 mg PO QAM 07/18/15 [History] Isosorbide MONOnitrate (24 HR) [Imdur] 90 mg PO QAM 07/18/15 [History] Ranolazine [Ranexa] 1,000 mg PO BID 07/18/15 [History] Rosuvastatin Calcium [Crestor] 10 mg PO QPM 07/18/15 [History] Glimepiride [Amaryl] 3 mg PO QAM 07/21/15 [History] Lansoprazole [Prevacid] 30 mg PO HS 07/21/15 [History] Multivitamin/Iron/Folic Acid [Centrum Complete Multivit Tab] 1 tab PO QAM [History] Saccharomyces Boulardii [Probiotic] 250 mg PO DAILY 07/21/15 [History] Cholecalciferol (Vitamin D3) [Vitamin D3] 1,000 unit PO DAILY 12/26/16 [History] Denosumab [Prolia (For Outpatient Infusion)] 60 mg SQ Q6M 12/26/16 [History] Losartan Potassium [Cozaar] 50 mg PO DAILY 12/26/16 [History] Mirabegron [Myrbetriq] 50 mg PO HS 04/19/17 [History] Desvenlafaxine Succinate [Desvenlafaxine Succinate ER] 150 mg PO DAILY 11/09/17 [History] Insulin LISPRO [HumaLOG] 10 unit SQ TIDWM 11/09/17 [History] Levothyroxine Sodium 200 mcg PO DAILY 11/09/17 [History] Linagliptin [Tradjenta] 5 mg PO DAILY 11/09/17 [History] OxyCODONE Immed Rel [Roxicodone 5 MG] 10 mg PO Q6HR PRN 5 Days #20 tablet [Rx] Rivaroxaban [Xarelto] 10 mg PO 1700 #30 tablet 11/20/17 [Rx] Metoprolol [Lopressor] 12.5 mg PO BID 12/13/17 [History] Promethazine [Phenergan] 12.5 mg PO Q6HR PRN 12/13/17 [History] 3 Allergy/AdvReac Type Severity Reaction Status Date / Time sulfamethoxazole AdvReac See Verified 12/26/16 09:31 [From Bactrim] Comments trimethoprim [From Bactrim] AdvReac See Verified 12/26/16 09:31 Comments - Meds/Allergy Pre-op Review Medications Reviewed: Yes Allergies Reviewed: Yes Beta Blockers on Current Med List: Yes If Beta Blockers taken, Date/Time (Last Dose taken): 12/13/2017 at 0500 Anesthesia Results - Labs Laboratory Tests 11/19/17 11/19/17 11/29/17 04:08 13:47 18:06 WBC Hgb Hct Plt Count PT 14.1 H INR 1.3 APTT 65.9 H Sodium 137 Potassium 4.0 BUN 24 H Creatinine 2.26 H 11/29/17 18:06 WBC 8.6 Hgb 11.3 L Hct 34.9 L Plt Count 271 PT INR APTT Sodium Potassium BUN Creatinine - Imaging EKG: report reviewed (11/09/2017 SINUS RHYTHM BORDERLINE LEFT AXIS DEVIATION [QRS AXIS < -20] NONSPECIFIC T-WAVE ABNORMALITY ABNORMAL RHYTHM ECG) Additional studies: 11/12/2017 Stress Impression: Pharmacologic stress ECG is negative for ischemia at level of heart rate achieved. Gated EF = 64%. Medium sized, moderate intensity, fixed inferior and inferolateral defect possibly due to a prior infarct. Perfusion imaging was negative for ischemia. 11/09/2017 Echo Impressions: LVEF 55%. Mild left ventricular diastolic dysfunction. Mildly dilated right ventricle. Severely dilated left atrium. Moderately dilated right atrium. There is mild to moderate pericardial effusion present. Worse than previous ECHO when compared No definitive ECHO features of tamponade, early features cannot be ruled out. Please correlate clinically 11/06/2011 Cath Impression: 25 to 30% in-stent restenosis of the pre-existing stent in the mid left anterior descending artery. 25 to 30% in-stent restenosis of the pre-existing stent in the proximal first diagonal artery. Minimal atherosclerotic coronary artery disease. Normal left ventricular size and contractility. The left ventricular ejection fraction was 60%. Recommendation: Aggressive risk factor modification. Begin an exercise program. Consider non-cardiac chest pain evaluation. Anesthesia Exam O2 Sat Height 1.6 m Weight 131.542 kg O2 Sat by Pulse Oximetry 95 Vital Signs Temp Pulse Resp BP Pulse Ox 97.3 F L 80 18 138/80 95 12/13/17 06:55 12/13/17 06:55 12/13/17 06:55 12/13/17 06:55 12/13/17 06:55 Blood Glucose* 267 Height: 5'3'' Weight: 290 lbs NPO (# of Hours): 8 Pain Scale: 0 Pain Scale Used: Numeric (1 - 10) - HEENT Pupil (Motor): EOMI Mallampati: III Teeth: Normal Oral Opening: Greater than 3 - DIAGRAMMER LOC: Oriented DIAGRAMMER Motor: Normal RUE, Normal LUE, Normal RLE, Normal LLE, Normal Face DIAGRAMMER Sensory: Normal: RUE, LUE, RLE, LLE, Face - Cardiac Rhythm: Regular Murmur: None - Pulmonary Breath Sounds: bilateral Clear Respiratory Effort: Symmetrical Anesthesia Assess/Plan ASA Score: 4 (Patient understands that she is at increased risk for perioperative complications including myocardial infarct, arrhythmias, CVA, post op vent support/ICU stay, and . Patient wishes to proceed.) Modified Cyndi Scale for Level of Consciousness: Cooperative, oriented, and tranquil Anesthetic Plan: General Monitoring Plan: Standard Monitors Recovery Plan: PACU
[2017-12-13] MEDS ORDERED: Lidocaine -MPF 1% 5 ML AMPUL ONE (07:15)
[2017-12-13] MEDS ORDERED: Lidocaine -MPF 1% 2 ML VIAL ONE (07:24)
[2017-12-13] MEDS ORDERED: Heparin 1,000 UNITS/500 mL 500 ML ONE (07:36)
--- NOTE | 2017-12-13 07:39 | History & Physical Report ---
Date of Encounter: 12/13/17 Time of Encounter: 07:38 24 Hour HP Update - Instructions Instructions: If the History and Physical is less than 30 days old and was completed prior to A.M. admission and or procedure and has NOT been updated on calendar day of procedure please complete this update prior to performing procedure. - Update Patient reports changes in Medical Condition: No Changes in examination, assessment, or condition: No Changes in Medication: No Preop tests/diagnostics Reviewed: Yes Surgery Remains Indicated: Yes Consent for Planned Operative Procedure(s) Verified: Yes - Pre-Operative Checklist Preoperative Checklist Indicated: Yes Prophylactic Antibiotic Ordered: Yes Home Medications Include Beta Lazara: Yes Beta Lazara Taken Today (Day of Surgery): Yes
[2017-12-13] MEDS ORDERED: *HR* Midazolam HCl 2 MG/2 ML VIAL ONE (07:43)
[2017-12-13] MEDS ORDERED: *HR* FentaNYL (PF) 100 MCG/2 ML VIAL ONE (07:43)
[2017-12-13] MEDS ORDERED: *HR* Propofol 200 MG/20 ML VIAL IVP ONE (07:43)
[2017-12-13] MEDS ORDERED: Lidocaine -MPF 2% 2 ML VIAL ONE (07:43)
[2017-12-13] MEDS ORDERED: *HR* Succinylcholine 200 MG/10 ML VIAL IVP ONE (07:43)
[2017-12-13] MEDS ORDERED: *HR* Cisatracurium 10 MG/5 ML VIAL IV ONE (07:46)
[2017-12-13] MEDS ORDERED: Ringers Solution, Lactated 1,000 ML IVC SCH (09:00)
[2017-12-13] MEDS ORDERED: *HR* PHENYLEPHRINE 1,000 MCG/10 ML SYRINGE IVP ONE (09:05)
[2017-12-13] MEDS ORDERED: Ondansetron 4 MG/2 ML VIAL ONE (11:09)
[2017-12-13] MEDS ORDERED: Dexamethasone 4 MG/ML VIAL ONE (11:09)
[2017-12-13] MEDS ORDERED: *HR* FentaNYL (PF) 100 MCG/2 ML VIAL IVP PRN (11:11)
[2017-12-13] MEDS ORDERED: *HR* OxyCODONE Immed Rel 5 MG TABLET PO PRN (11:11)
[2017-12-13] MEDS ORDERED: MORPHINE SUL Oral CONC 10 MG/0.5 ML ORAL.SYG SL PRN (11:11)
[2017-12-13] MEDS ORDERED: Acetaminophen IV 1,000 MG/100 ML INFUS..BTL ONE (11:19)
--- NOTE | 2017-12-13 11:54 | Operative Note ---
Date of procedure: 12/13/17 Pre-op diagnosis: Right Adrenal Gland Mass/Cholecystitis Post-op diagnosis: same Procedure: Robotic Right Adrenalectomy/Cholecystectomy Anesthesia: GETA Surgeon: Eladio Lowe Was there an pier master assistant present: Yes Back Tender Paper Machine: Milka Ervin Estimated blood loss (cc): 400 Specimen: gallbladder/adrenal gland Condition: stable Disposition: same day Procedure in Detail: After informed consent, the patient underwent general anesthesia. After the abdomen was prepped and draped. Four individual incisions were made in the right upper quadrant and mid axillary line. The camera port was inserted under direct visualization. Once pneumoperitoneum was created the other 3 robotic cannulas were placed in the abdomen. 2 additional 5 mm cannulas were placed for liver retractor in for an assistance port. Once all the potential rotation was in place robot was docked over the patient's right abdomen and shoulder. The liver was retracted anteriorly and cephalad. And the hepatocolic ligament was taken down with vessel sealer. Next dissection was carried out in a cephalad direction to identify the inferior vena cava. The border on the right lateral inferior vena cava was identified and was used as a roadmap to delineate the adrenal gland. The adrenal vein was identified and clipped twice proximally and then divided with electrocautery. Once completed and the adrenal gland was dissected from a medial to lateral aspect. Once it was fully resected from the medial aspect was then dissected from the superior pole and rolled to the caudal position. Multiple small attachments were cauterized with the robotic scissors. During the course the operation we lost approximate 400 mL of blood. Once the gland was completely resected free was placed in an endoscopic bag and removed through the 12 mm cannula. Next, an alligator clamp was then placed on the gallbladder was retracted anteriorly and cephalad. The infundibulum of the gallbladder was identified and the cystic duct was skeletonized. Once the structures were identified the cystic duct was clipped twice proximally and once distally. Cystic duct was then transected. The gallbladder was then resected off the liver surface. Once the gallbladder was fully resected from the liver surface, the liver was gently irrigated and suctioned dry. We ensured hemostasis prior to removing the gallbladder through the umbilical port. A 19-Tamazight Tres drain was placed in the retrohepatic space. Was brought out through the assistance port and secured with 3-0 nylon suture. The fascia was closed with an 0 Vicryl suture and then skin incisions were closed with christopher. 30 mL of Marcaine was placed in the incisions. She was extubated and taken to recovery.
[2017-12-13] MEDS ORDERED: *HR* Phenylephrine 10 MG/ML VIAL ONE (12:06)
--- NOTE | 2017-12-13 12:56 | Anesthesia Evaluation Post Op ---
Date of Encounter: 12/13/17 Time of Encounter: 12:55 - Vital Signs Vital Signs: Vital Signs/O2 Sat, Most Current Temp Pulse Resp BP Pulse Ox 98.5 F 59 19 124/68 95 12/13/17 12:46 12/13/17 12:46 12/13/17 12:46 12/13/17 12:46 12/13/17 12:46 - Lungs Lungs: Clear Ascult./Percussion - Airway Airway: Non-obstructed - Cardiovascular Regular Rate - Mental Status Mental Status: Alert & Oriented, Answers Appropriately - Pain Pain Scale: 0 Pain Scale used: Numeric (1 - 10) - Nausea Vomiting Nausea Vomiting: Not Present - Hydration Hydration: NPO, Hendrix catheter - Discharge PostOp Status: Transfer Patient to floor Attestation: I have assessed this patient and find they meet discharge criteria.
[2017-12-13] MEDS ORDERED: Morphine Oral CONC 5 MG/0.25 ML ORAL.SYG PO PRN (13:58)
[2017-12-13] MEDS ORDERED: Ondansetron 4 MG/2 ML VIAL IVP PRN (13:58)
[2017-12-13] MEDS ORDERED: *HR* Dextrose 50 % in Water (Syg) 50 ML SYRINGE IVP PRN (13:58)
[2017-12-13] MEDS ORDERED: Dextrose Gel 15 GM/37.5 ML TUBE PO PRN ×2 (13:58)
[2017-12-13] MEDS ORDERED: Naloxone 0.4 MG/ML INJ IVP PRN (13:58)
[2017-12-13] MEDS ORDERED: D5% in Water 1,000 ML IVC PRN (13:58)
[2017-12-13] MEDS: 0.9 % Sodium Chloride 1,000 ML IVC SCH (16:44)
[2017-12-13] MEDS: OXYCODONE Oral CONC 10 MG/0.5 ML ORAL.SYG SL PRN ×2 (16:44→22:24)
[2017-12-13] MEDS: Insulin LISPRO 300 UNITS/3 ML VIAL SQ SCH ×2 (16:45→22:14)
[2017-12-13] MEDS ORDERED: Acetaminophen IV 1,000 MG/100 ML INFUS..BTL IVPB SCH (18:00)
[2017-12-13] MEDS: Acetaminophen IV 1,000 MG/100 ML INFUS..BTL IVPB SCH (22:06)
[2017-12-13] MEDS: Ranolazine 500 MG TAB.ER.12H PO SCH (22:15)
[2017-12-13] MEDS: (Mirabegron [Myrbetriq] 50 MG) PO SCH (22:19)
[2017-12-14] MEDS: Acetaminophen IV 1,000 MG/100 ML INFUS..BTL IVPB SCH ×5 (00:04→23:45)
[2017-12-14] MEDS: OXYCODONE Oral CONC 10 MG/0.5 ML ORAL.SYG SL PRN ×4 (03:55→20:31)
[2017-12-14] MEDS: 0.9 % Sodium Chloride 1,000 ML IVC SCH ×2 (05:46→20:22)
[2017-12-14 06:38] LABS: Basophils % 0.1 %; Hematocrit 28.4 % (35.3-44.9); Hemoglobin 9.2 g/dL (11.5-15.4); Immature Granulocytes % 0.6 % (0-4); Lymphocytes # 0.9 K/mcL (0.6-4.6); Lymphocytes % 7.2 %; Mean Corpuscular HGB Conc 32.4 g/dL (31.6-35.5); Mean Corpuscular Hemoglobin 30.2 pg (28.0-33.3); Mean Corpuscular Volume 93.1 fL (83.0-100.0); Mean Platelet Volume 10.4 fL (9.4-12.4); Monocytes # 0.6 K/mcL (0.0-1.3); Monocytes % 5.2 %; Neutrophils # 10.4 K/mcL (1.6-8.9); Platelet Count 198 K/mcL (140-400); Red Blood Count 3.05 M/mcL (3.82-4.97); Red Cell Distribution Width 13.6 % (11.5-14.5); Segmented Neutrophils % 86.9 %
[2017-12-14 06:51] LABS: Calcium 8.5 mg/dL (8.6-10.3); Potassium 4.8 mEq/L (3.5-5.1)
[2017-12-14] MEDS: Venlafaxine XR (24 HR) 75 MG CAP.ER.24H PO SCH (08:46)
[2017-12-14] MEDS: *HR* Glimepiride 2 MG TABLET PO SCH (08:47)
[2017-12-14] MEDS: Multivit/Ca/Min/Fe/FA 1 TAB TABLET PO SCH (08:47)
[2017-12-14] MEDS: Diltiazem CD (24hr) 240 MG CAPSULE PO SCH (08:47)
[2017-12-14] MEDS: Ranolazine 500 MG TAB.ER.12H PO SCH ×2 (08:48→20:22)
[2017-12-14] MEDS: Isosorbide MONOnitrate (24 HR) 60 MG TAB.ER.24H PO SCH (08:48)
[2017-12-14] MEDS: (Linagliptin [Tradjenta] 5 MG) PO SCH (08:49)
[2017-12-14] MEDS: Insulin LISPRO 300 UNITS/3 ML VIAL SQ SCH ×4 (08:54→20:35)
--- NOTE | 2017-12-14 12:03 | General Surgery Progress Note ---
Date of Encounter: 12/14/17 Time of Encounter: 12:01 - Assessment and Plan (1) Adrenal mass, right Current Visit: Yes Status: Acute Plan for diet as tolerated. We will maintain the drain in until next week when it will be removed in the office. Like to see her increase her mobilization and ambulation. She may be a little be discharged tomorrow. Subjective Patient reports: other (Currently, patient feels well. She does have some incisional pain. However she feels better and was she had prior. She does have an appetite.) Objective Vital Signs - Last 8 Hours Temp Pulse Resp BP Pulse Ox 12/14/17 10:30 98.1 F 74 18 127/75 96 12/14/17 06:40 98.4 F 77 18 152/69 95 12/14/17 04:11 98.2 F 81 15 156/74 95 Intake and Output 12/13/17 12/14/17 12/14/17 23:59 07:59 15:59 Intake Total 280 / 280 1320 / 1320 480 / 480 Output Total 80 / 80 43 / 43 Balance 200 / 200 1277 / 1277 480 / 480 Intake: IV Fluids 100 / 100 1200 / 1200 0.9 % Sodium Chloride 1,000 ML 1000 / 1000 @ 75 mls/hr IVC .[id number] [facility] Rx #:[id number] Ofirmev 1,000 mg/100 ml 1,000 100 / 100 200 / 200 mg In 100 ml @ 400 mls/hr IVPB Q6HR [facility] Rx#:[id number] Oral 180 / 180 120 / 120 480 / 480 Output: Urine 0 / 0 Wound Drainage 80 / 80 43 / 43 RLQ 80 / 80 43 / 43 Other: Meal Clear Breakfast Percent of Meal Consumed 100% # Voids 1 1 Weight 132.01 kg Blood Glucose* 218 186 196 Patient Weight 12/14/17 23:59 Weight 132.01 kg - General physical appearance well developed - Eyes PERRL - ENT normal mucosa - Neck Neck exam: trachea midline - Respiratory normal expansion - Cardiovascular Cardiovascular exam: Present: RRR - Abdomen Abdomen: Present: bowel sounds present, soft - Neurologic CN 2-12 grossly intact, normal sensation - Labs 12/14/17 05:56 12/14/17 05:56 Diabetes panel 12/14/17 Range/Units 05:56 Sodium 136 (136-145) mEq/L Potassium 4.8 (3.5-5.1) mEq/L Chloride 105 (98-107) mEq/L Carbon Dioxide 24 (23-29) mEq/L BUN 31 H (8-23) mg/dL Creatinine 2.06 H (0.60-1.20) mg/dL Glucose 201 H (70-105) mg/dL Calcium 8.5 L (8.6-10.3) mg/dL Calcium panel 12/14/17 Range/Units 05:56 Calcium 8.5 L (8.6-10.3) mg/dL Pituitary panel 12/14/17 Range/Units 05:56 Sodium 136 (136-145) mEq/L Potassium 4.8 (3.5-5.1) mEq/L Chloride 105 (98-107) mEq/L Carbon Dioxide 24 (23-29) mEq/L BUN 31 H (8-23) mg/dL Creatinine 2.06 H (0.60-1.20) mg/dL Glucose 201 H (70-105) mg/dL Calcium 8.5 L (8.6-10.3) mg/dL Adrenal panel 12/14/17 Range/Units 05:56 Sodium 136 (136-145) mEq/L Potassium 4.8 (3.5-5.1) mEq/L Chloride 105 (98-107) mEq/L Carbon Dioxide 24 (23-29) mEq/L BUN 31 H (8-23) mg/dL Creatinine 2.06 H (0.60-1.20) mg/dL Glucose 201 H (70-105) mg/dL Calcium 8.5 L (8.6-10.3) mg/dL - VTE Documentation of Mechanical Device: Venous foot pump, device Consult Discharge Plan - Plan Referrals: Rosa Gann CNP [Advanced Practice Nurse] - 12/30/17 1:15 pm
[2017-12-14] MEDS ORDERED: MORPHINE SUL Oral CONC 10 MG/0.5 ML ORAL.SYG PO PRN (12:15)
[2017-12-14] MEDS: Aspirin Enteric Coated 81 MG Tablet PO SCH (17:37)
[2017-12-14] MEDS: (Mirabegron [Myrbetriq] 50 MG) PO SCH (20:23)
[2017-12-15] MEDS: Acetaminophen IV 1,000 MG/100 ML INFUS..BTL IVPB SCH ×4 (05:57→23:16)
[2017-12-15] MEDS: *HR* Glimepiride 2 MG TABLET PO SCH (08:13)
[2017-12-15] MEDS: Diltiazem CD (24hr) 240 MG CAPSULE PO SCH (08:13)
[2017-12-15] MEDS: Multivit/Ca/Min/Fe/FA 1 TAB TABLET PO SCH (08:13)
[2017-12-15] MEDS: Venlafaxine XR (24 HR) 75 MG CAP.ER.24H PO SCH (08:14)
[2017-12-15] MEDS: Ranolazine 500 MG TAB.ER.12H PO SCH ×2 (08:14→19:46)
[2017-12-15] MEDS: Isosorbide MONOnitrate (24 HR) 60 MG TAB.ER.24H PO SCH (08:14)
[2017-12-15] MEDS: Insulin LISPRO 300 UNITS/3 ML VIAL SQ SCH ×4 (08:15→21:17)
[2017-12-15] MEDS: (Linagliptin [Tradjenta] 5 MG) PO SCH (08:20)
[2017-12-15] MEDS: OXYCODONE Oral CONC 10 MG/0.5 ML ORAL.SYG SL PRN ×2 (08:24→16:56)
[2017-12-15] MEDS: 0.9 % Sodium Chloride 1,000 ML IVC SCH (10:19)
--- NOTE | 2017-12-15 11:16 | General Surgery Progress Note ---
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 We will maintain her diet at liquids today. Continue IV hydration and watch her renal function basic metabolic panel ordered for the morning Qualifiers: Laterality: right Qualified Code(s): D35.01 - Benign neoplasm of right adrenal gland Subjective Narrative: The patient has had robotic laparoscopic adrenalectomy and cholecystectomy. She has profound morbid obesity. She is awake and alert and sitting at the bedside. She is complaining of incisional or right-sided abdominal wall pain. Vital signs are stable. She is afebrile. She has sanguinous drainage from her closed suction drainage tube at 40 mL per shift. She is on clear liquids. We will maintain clear liquids today and continue supportive care with IV hydration. It is noted that she has elevated creatinine and BUNs. This should improve with gentle hydration. I will maintain her IV fluids today and check a basic metabolic panel tomorrow morning Objective Vital Signs - Last 8 Hours Temp Pulse Resp BP Pulse Ox 12/15/17 10:33 97.8 F 63 18 118/73 94 12/15/17 07:18 97.9 F 66 18 129/78 97 12/15/17 04:25 98.1 F 68 16 117/68 95 Intake and Output 12/14/17 12/15/17 12/15/17 23:59 07:59 15:59 Intake Total 1910 / 1910 300 / 300 1000 / 1000 Output Total 840 / 840 20 / 20 Balance 1070 / 1070 280 / 280 1000 / 1000 Intake: IV Fluids 1100 / 1100 100 / 100 1000 / 1000 0.9 % Sodium Chloride 1,000 ML 1000 / 1000 1000 / 1000 @ 75 mls/hr IVC .[id number] [facility] Rx #:[id number] Ofirmev 1,000 mg/100 ml 1,000 100 / 100 100 / 100 mg In 100 ml @ 400 mls/hr IVPB Q6HR [facility] Rx#:[id number] Oral 460 / 460 200 / 200 0 / 0 Free Water 350 / 350 Output: Urine 800 / 800 0 / 0 Wound Drainage 40 / 40 20 / 20 RLQ 40 / 40 20 / 20 Other: Meal Clears # Voids 1 Weight 136.078 kg Blood Glucose* 111 90 Patient Weight 12/15/17 23:59 Weight 136.078 kg - General physical appearance well developed, well nourished, obese - Neck Neck exam: no masses, trachea midline, no lymphadectomy - Respiratory normal expansion, normal respiratory effort, clear to percussion, clear to auscultation - Cardiovascular Cardiovascular exam: Present: RRR, no murmurs/rubs/gallops - Abdomen Abdomen: Present: bowel sounds present, soft - Incision Incision: Present: intact - Neurologic normal coordination, normal sensation - Psychiatric oriented to time, oriented to person, oriented to place, speech is normal, memory intact - Labs 12/14/17 05:56 12/14/17 05:56 - VTE Documentation of Mechanical Device: Venous foot pump, device Consult Discharge Plan - Plan Referrals: Rosa Gann SOCIAL SCIENCES CHAIR [Advanced Practice Nurse] - 12/30/17 1:15 pm
[2017-12-15] MEDS: Aspirin Enteric Coated 81 MG Tablet PO SCH (16:47)
[2017-12-15] MEDS ORDERED: *HR* Rivaroxaban 10 MG TABLET PO SCH (17:00)
[2017-12-15] MEDS: (Mirabegron [Myrbetriq] 50 MG) PO SCH (19:47)
[2017-12-16 05:12] LABS: Hematocrit 26.4 % (35.3-44.9); Hemoglobin 8.3 g/dL (11.5-15.4); Mean Corpuscular HGB Conc 31.4 g/dL (31.6-35.5); Mean Corpuscular Hemoglobin 30.4 pg (28.0-33.3); Mean Corpuscular Volume 96.7 fL (83.0-100.0); Mean Platelet Volume 10.1 fL (9.4-12.4); Platelet Count 158 K/mcL (140-400); Red Blood Count 2.73 M/mcL (3.82-4.97); Red Cell Distribution Width 13.7 % (11.5-14.5)
[2017-12-16 05:21] LABS: Calcium 7.9 mg/dL (8.6-10.3); Potassium 4.4 mEq/L (3.5-5.1)
[2017-12-16] MEDS: Acetaminophen IV 1,000 MG/100 ML INFUS..BTL IVPB SCH (05:59)
[2017-12-16] MEDS: Isosorbide MONOnitrate (24 HR) 60 MG TAB.ER.24H PO SCH (09:14)
[2017-12-16] MEDS: Insulin LISPRO 300 UNITS/3 ML VIAL SQ SCH ×2 (09:16→11:30)
[2017-12-16] MEDS: Diltiazem CD (24hr) 240 MG CAPSULE PO SCH (09:17)
[2017-12-16] MEDS: Venlafaxine XR (24 HR) 75 MG CAP.ER.24H PO SCH (09:17)
[2017-12-16] MEDS: *HR* Glimepiride 2 MG TABLET PO SCH (09:17)
[2017-12-16] MEDS: Multivit/Ca/Min/Fe/FA 1 TAB TABLET PO SCH (09:18)
[2017-12-16] MEDS: Ranolazine 500 MG TAB.ER.12H PO SCH (09:18)
[2017-12-16] MEDS: (Linagliptin [Tradjenta] 5 MG) PO SCH (09:18)
--- NOTE | 2017-12-16 09:56 | General Surgery Progress Note ---
Date of Encounter: 12/16/17 Time of Encounter: 09:55 Objective Vital Signs - Last 8 Hours Temp Pulse Resp BP Pulse Ox 12/16/17 06:52 98.0 F 71 16 132/80 96 12/16/17 02:25 97.9 F 70 16 131/65 94 Intake and Output 12/15/17 12/16/17 12/16/17 23:59 07:59 15:59 Intake Total 720 / 720 100 / 100 120 / 120 Output Total 810 / 810 1110 / 1110 900 / 900 Balance -90 / -90 -1010 / -1010 -780 / -780 Intake: IV Fluids 200 / 200 Ofirmev 1,000 mg/100 ml 1,000 200 / 200 mg In 100 ml @ 400 mls/hr IVPB Q6HR [facility] Rx#:[id number] Oral 520 / 520 100 / 100 120 / 120 Output: Urine 800 / 800 1100 / 1100 900 / 900 Wound Drainage RLQ Other: Meal Breakfast Percent of Meal Consumed 0% Weight 138.2 kg Blood Glucose* 123 115 Patient Weight 12/16/17 23:59 Weight 138.2 kg - Labs 12/16/17 04:40 12/16/17 04:40 Diabetes panel 12/16/17 Range/Units 04:40 Sodium 136 (136-145) mEq/L Potassium 4.4 (3.5-5.1) mEq/L Chloride 105 (98-107) mEq/L Carbon Dioxide 30 H (23-29) mEq/L BUN 28 H (8-23) mg/dL Creatinine 1.93 H (0.60-1.20) mg/dL Glucose 107 H (70-105) mg/dL Calcium 7.9 L (8.6-10.3) mg/dL Calcium panel 12/16/17 Range/Units 04:40 Calcium 7.9 L (8.6-10.3) mg/dL Pituitary panel 12/16/17 Range/Units 04:40 Sodium 136 (136-145) mEq/L Potassium 4.4 (3.5-5.1) mEq/L Chloride 105 (98-107) mEq/L Carbon Dioxide 30 H (23-29) mEq/L BUN 28 H (8-23) mg/dL Creatinine 1.93 H (0.60-1.20) mg/dL Glucose 107 H (70-105) mg/dL Calcium 7.9 L (8.6-10.3) mg/dL Adrenal panel 12/16/17 Range/Units 04:40 Sodium 136 (136-145) mEq/L Potassium 4.4 (3.5-5.1) mEq/L Chloride 105 (98-107) mEq/L Carbon Dioxide 30 H (23-29) mEq/L BUN 28 H (8-23) mg/dL Creatinine 1.93 H (0.60-1.20) mg/dL Glucose 107 H (70-105) mg/dL Calcium 7.9 L (8.6-10.3) mg/dL - VTE Documentation of Mechanical Device: Intermittent pneumatic compression device Consult Discharge Plan - Plan Referrals: Rosa Gann CNP [Advanced Practice Nurse] - 12/30/17 1:15 pm
[2017-12-16] MEDS ORDERED: *HR* OxyCODONE/APAP 5/325 TABLET PO PRN ×2 (10:05→10:06)
--- NOTE | 2017-12-16 10:07 | Discharge Summary ---
- NOTES TO OUTPATIENT PROVIDER Notes to Outpatient Provider: Pt with acute blood loss on chronic anemia. No trasnfusions post surgery d/t asymptomatic and hgb improving. Will repeat labs prior to surgical follow-up. Date of Encounter: 12/16/17 Time of Encounter: 10:23 - Discharge Diagnosis (1) Adrenal mass, right Priority: Primary Status: Resolved (2) Symptomatic cholelithiasis Priority: Primary Status: Resolved (3) Cholecystitis Priority: Primary Status: Resolved (4) Atrial fibrillation Priority: Secondary Status: Chronic Qualifiers: Atrial fibrillation type: unspecified Qualified Code(s): I48.91 - Unspecified atrial fibrillation (5) CKD (chronic kidney disease) Priority: Secondary Status: Chronic Qualifiers: Chronic kidney disease stage: stage 2 (mild) Qualified Code(s): N18.2 - Chronic kidney disease, stage 2 (mild) (6) ASHD (arteriosclerotic heart disease) Priority: Secondary Status: Acute (7) Anemia Priority: Secondary Status: Acute Comments: Acute blood loss on chronic anemia Resolving Qualifiers: Anemia type: unspecified type Qualified Code(s): D64.9 - Anemia, unspecified General Surgery Exam Initial Vital Signs Temp Pulse Resp BP Pulse Ox 97.3 F L 80 18 138/80 95 12/13/17 06:55 12/13/17 06:55 12/13/17 06:55 12/13/17 06:55 12/13/17 06:55 VITAL SIGNS: Reviewed. See [facility] GENERAL: In no apparent distress. Sitting upright in the chair at bedside. HEENT: Normocephalic, atraumatic, pupils are equal and reactive, extraocular motions intact, oropharynx is pink and moist, there is no neck adenopathy or JVD noted. CHEST/RESPIRATORY: The thorax is free from signs of trauma. Lung sounds: clear to auscultation, normal respiratory effort CARDIAC: Distant heart tones. Normal S1 and S2, without murmurs, gallops, or rubs. VASCULAR: No Edema. 2+ peripheral pulses. ABDOMEN: Obese. ABS, Expected postoperative tenderness. INCISION: Surgical incision is clean, dry, and intact. There are no signs of cellulitis or infection noted. WOUNDS/DRAINS: RLQ OSMAN drain with SS drainage noted MUSCULOSKELETAL: Good range of motion of all major joints. Extremities without clubbing, cyanosis or edema. NEUROLOGIC EXAM: Alert and oriented x 3. Speech normal. Follows commands. PSYCHIATRIC: Mood normal. SKIN: No rash or lesions. - Hospital Course Hospital course: Ms. Dawn is a 67 year old female who presented on 12/13/2017 for an elective robotic right adrenalectomy and cholecystectomy. Her operative course was complicated by approximately 400 mL blood loss. Her hemoglobin dropped slightly from her baseline of around 11.0 to 8.3 and she is asymptomatic. She was not transfused during this admission. The remainder of her hospital course was uncomplicated. She is ambulating and voiding without difficulty, tolerating a full liquid diet without nausea or vomiting, endorses passing flatus but denies BMs, vital signs are stable, she is afebrile, in her abdominal discomfort is controlled. We will begin discharge planning to home with a follow-up in the office in approximately one week for a drain check. She is also encouraged to eat an iron rich diet as opposed to taking iron supplements as so to decrease the risk of constipation from iron supplements and narcotic combination. She is also reminded to return to the emergency department if she feels lightheaded or dizzy, SOB, or has CP. We have also placed orders for a H&H prior to her follow-up visit. - Time Spent with Patient Total time spent providing and/or coordinating discharge services: Less than 30 minutes - Discharge Medications Prescriptions: OxyCODONE/APAP 5/325 [Percocet 5/325 MG] 1 each PO Q4HR PRN 7 Days #28 tablet PRN Reason: mild pain Docusate Sodium [Colace] 100 mg PO BID #30 capsule Home Medications: Meclizine [Antivert] 25 mg PO AD PRN 06/10/15 [History] Aspirin [Adult Low Dose Aspirin EC] 81 mg PO QPM 07/18/15 [History] Cyanocobalamin (Vitamin B-12) [Vitamin B12] 2,500 mg PO QAM 07/18/15 [History] Diltiazem CD (24hr) [Cardizem CD] 240 mg PO QAM 07/18/15 [History] Isosorbide MONOnitrate (24 HR) [Imdur] 90 mg PO QAM 07/18/15 [History] Ranolazine [Ranexa] 1,000 mg PO BID 07/18/15 [History] Rosuvastatin Calcium [Crestor] 10 mg PO QPM 07/18/15 [History] Glimepiride [Amaryl] 3 mg PO QAM 07/21/15 [History] Lansoprazole [Prevacid] 30 mg PO HS 07/21/15 [History] Multivitamin/Iron/Folic Acid [Centrum Complete Multivit Tab] 1 tab PO QAM [History] Saccharomyces Boulardii [Probiotic] 250 mg PO DAILY 07/21/15 [History] Cholecalciferol (Vitamin D3) [Vitamin D3] 1,000 unit PO DAILY 12/26/16 [History] Denosumab [Prolia (For Outpatient Infusion)] 60 mg SQ Q6M 12/26/16 [History] Losartan Potassium [Cozaar] 50 mg PO DAILY 12/26/16 [History] Mirabegron [Myrbetriq] 50 mg PO HS 12/26/16 [History] Desvenlafaxine Succinate [Desvenlafaxine Succinate ER] 150 mg PO DAILY 11/09/17 [History] Insulin LISPRO [HumaLOG] 10 unit SQ TIDWM 11/09/17 [History] Levothyroxine Sodium 200 mcg PO DAILY 11/09/17 [History] Linagliptin [Tradjenta] 5 mg PO DAILY 11/09/17 [History] Rivaroxaban [Xarelto] 10 mg PO 1700 #30 tablet 11/20/17 [Rx] Metoprolol [Lopressor] 12.5 mg PO BID 12/13/17 [History] Promethazine [Phenergan] 12.5 mg PO Q6HR PRN 12/13/17 [History] Docusate Sodium [Colace] 100 mg PO BID #30 capsule 12/16/17 [Rx] OxyCODONE/APAP 5/325 [Percocet 5/325 MG] 1 each PO Q4HR PRN 7 Days #28 tablet [Rx] Allergies/Adverse Reactions: 3 Allergy/AdvReac Type Severity Reaction Status Date / Time sulfamethoxazole AdvReac See Verified 12/26/16 09:31 [From Bactrim] Comments trimethoprim [From Bactrim] AdvReac See Verified 12/26/16 09:31 Comments Date of admission: 12/13/17 13:48 Primary care physician: Kaiden Hammer DO Consults: 12/13/17 14:17 Consult to Pastoral Services [CONS] Routine Comment: Discharging clinician: Eladio Kaplan) Anticipated date of discharge: 12/16/17 Labs on day of discharge: Labs from last 24 hours 12/16/17 12/16/17 12/16/17 07:45 04:40 04:40 WBC 6.6 RBC 2.73 L Hgb 8.3 L Hct 26.4 L MCV 96.7 MCH 30.4 MCHC 31.4 L RDW 13.7 Plt Count 158 MPV 10.1 Sodium 136 Potassium 4.4 Chloride 105 Carbon Dioxide 30 H BUN 28 H Creatinine 1.93 H Est GFR ( Amer) 31 L Est GFR (Non-Af Amer) 26 L BUN/Creatinine Ratio 15 Glucose 107 H POC Glucose 115 H Calculated Osmolality 288 Calcium 7.9 L 12/15/17 12/15/17 12/15/17 20:37 16:30 11:26 WBC RBC Hgb Hct MCV MCH MCHC RDW Plt Count MPV Sodium Potassium Chloride Carbon Dioxide BUN Creatinine Est GFR ( Amer) Est GFR (Non-Af Amer) BUN/Creatinine Ratio Glucose POC Glucose 123 H 131 H 120 H Calculated Osmolality Calcium - Patient Status Disposition: Home, Self-Care Condition: Good Functional capacity at discharge: independent ambulation Overall status at discharge: patient is progressing back to baseline - Discharge Instructions Instructions: Laparoscopic Cholecystectomy (DC), Laparoscopic Adrenalectomy (DC ), Iron Rich Diet (DC) Follow Up With: Rosa Gann ROLL RECLAIMER [Advanced Practice Nurse] - 12/23/17 2:30 pm Additional Instructions: General Surgical Discharge Instructions 1. No pushing, pulling, or lifting greater than 15 lbs for 2-4 weeks (depending upon procedure). 2. You may shower beginning today, but no tub baths, soaking, or swimming for 2 weeks. 3. You may resume driving when you are off narcotics and are safe to react in a car. 4. Take ibuprofen every 8 hours for discomfort. If this does not relieve discomfort, you may take the as needed Percocet. Take narcotics as directed. Do not take more narcotics then directed and do not share your narcotics with any other person. Do not drink alcohol while on narcotics. 5. Take stool softeners (Colace) or a water based laxative (Miralax) while taking narcotics. You may hold for loose stools. 6. Report any fevers greater than 100.5F, increase abdominal discomfort, drainage that looks like pus, increased redness or pain at the surgical site, or any vomiting. 7. Report any pain in the calves, shortness of breath, or rapid heartbeat. 8. Follow-up in the office as directed. 9. If you were prescribed antibiotics, do not stop them without talking to your provider. Daily OSMAN Drain Care: 1. Remove dressings. Shower with antibacterial soap. 2. Do not let the OSMAN drain dangle from your body. Use the safety pin to secure to your clothing. Secure the OSMAN to a lanyard or other type of long necklace when you shower. 3. Replace drain gauze and taped to secure. 4. Record the output from your OSMAN bulb (at least once daily) on the form provided and bring this with you to your follow-up appointment. 5. Keep the OSMAN drain to suction (sqeeze the bulb and replace the cap while squeezing). 6. Strip the lines twice daily (hold onto the line as close to the body as you can, then with the other hand push the contents of the line into the OSMAN bulb). Keep your follow-ups with your PCP, policy writer sales, and stretching machine operator. Please obtain the ordered lab-work prior to your folow-up with Rosa Gann on 12/23. - Diet and Activity Activity: increase activity as tolerated Diet: advance to your usual diet
[2017-12-16 10:39] VITALS: BP 123/84
== END 2017-12-16 15:22 | disposition home or self-care (01) | DRG 418 ==
LOC: SAMDAY 06:18 → 3ANU 13:48
PROVIDERS: ADMIT Surgery; ATTEND Surgery

== ENCOUNTER 2019-09-23 06:49 | Inpatient (IN) ==
[2019-09-23] MEDS ORDERED: *HR* Dextrose 50 % in Water (Syg) 50 ML SYRINGE ONE (06:54)
[2019-09-23] MEDS ORDERED: *HR* Dextrose 50 % in Water (Syg) 50 ML SYRINGE IVP ONE (07:14)
[2019-09-23 08:07] LABS: Basophils % 0.2 %; Eosinophils # 0.1 K/mcL (0.0-0.6); Eosinophils % 0.5 %; Hematocrit 35.9 % (35.3-44.9); Immature Granulocytes % 0.6 % (0-4); Lymphocytes # 0.8 K/mcL (0.6-4.6); Lymphocytes % 7.1 %; Mean Corpuscular HGB Conc 33.4 g/dL (31.6-35.5); Mean Corpuscular Hemoglobin 30.4 pg (28.0-33.3); Mean Corpuscular Volume 90.9 fL (83.0-100.0); Mean Platelet Volume 9.4 fL (9.4-12.4); Monocytes # 0.6 K/mcL (0.0-1.3); Monocytes % 5.7 %; Neutrophils # 9.3 K/mcL (1.6-8.9); Platelet Count 228 K/mcL (140-400); Red Blood Count 3.95 M/mcL (3.82-4.97); Red Cell Distribution Width 14.6 % (11.5-14.5); Segmented Neutrophils % 85.9 %; White Blood Count 10.8 K/mcL (4.3-11.1)
[2019-09-23 08:30] LABS: Alanine Aminotransferase 10 Units/L (7-52); Albumin 3.1 g/dL (3.5-5.7); Albumin/Globulin Ratio 1.1 (1.1-2.2); Alkaline Phosphatase 64 Units/L (34-104); Aspartate Amino Transferase 18 Units/L (13-39); BUN/Creatinine Ratio 14 (6-26); Bilirubin,Total 0.4 mg/dL (0.3-1.0); Blood Urea Nitrogen 32 mg/dL (8-23); Carbon Dioxide 29 mEq/L (23-29); Chloride 96 mEq/L (98-107); Globulin 2.7 g/dL (2.4-3.5); Glucose 261 mg/dL (70-105); Osmolality,Calculated 292 (280-300); Potassium 3.8 mEq/L (3.5-5.1); Sodium 133 mEq/L (136-145); Total Protein 5.8 g/dL (6.4-8.9); Troponin I < 0.03 ng/mL (< 0.04); eGFR For African Americans 26 (> 60); eGFR For Non-African Americans 22 (> 60)
[2019-09-23 09:37] LABS: Bilirubin,Urine Negative (Negative); Blood,Urine Small (Negative); Color,Urine Yellow (Yellow); Glucose,Urine (UA) 100 mg/dL (Normal); Ketones,Urine Negative (Negative); Leukocyte Esterase,Urine Large (Negative); Nitrite,Urine Negative (Negative); PH,Urine 5.5 pH Units (5.0-8.0); Protein,Urine 30 mg/dL (Neg-Trace); Specific Gravity,Urine 1.016 (1.010-1.025); Urobilinogen,Urine Normal (Normal)
[2019-09-23 09:39] LABS: Bacteria,Urine Few per hpf (None-Few); Hyaline Casts,Urine Few per lpf (None-Few); Squamous Epithelial Cell,Urine Many per lpf (None-Few); WBC,Urine 50-100 per hpf (0-3)
[2019-09-23 09:40] LABS: Clarity,Urine Slightly Hazy (Clear)
[2019-09-23] MEDS ORDERED: Naloxone 0.4 MG/ML INJ IVP PRN (12:09)
[2019-09-23] MEDS ORDERED: *HR* HYDROcodone/Acet 5/325 mg TABLET PO PRN (12:10)
[2019-09-23] MEDS ORDERED: Dextrose Gel 15 GM/37.5 ML TUBE PO PRN ×2 (12:22)
[2019-09-23] MEDS ORDERED: *HR* Dextrose 50 % in Water (Syg) 50 ML SYRINGE IVP PRN (12:22)
[2019-09-23] MEDS ORDERED: D5% in Water 1,000 ML IVC PRN (12:22)
[2019-09-23 15:18] LABS: INR 3.4; Prothrombin Time 39.1 Seconds (9.4-12.1)
[2019-09-23] MEDS: Insulin LISPRO 300 UNITS/3 ML VIAL SQ SCH (17:15)
[2019-09-23 17:22] LABS: Estimated Average Glucose 120 mg/dl
[2019-09-23] MEDS ORDERED: Warfarin perPT PO PRN (18:00)
[2019-09-23] MEDS: Docusate Oral Soln 100 MG/10 ML UDC PO SCH (20:54)
[2019-09-23] MEDS: Ranolazine 500 MG TAB.ER.12H PO SCH (20:56)
[2019-09-23] MEDS: (Mirabegron [Myrbetriq] 50 MG) PO SCH (21:02)
[2019-09-24 01:48] LABS: Basophils % 0.3 %; Eosinophils # 0.1 K/mcL (0.0-0.6); Eosinophils % 1.3 %; Hematocrit 32.7 % (35.3-44.9); Immature Granulocytes % 0.6 % (0-4); Lymphocytes # 1.3 K/mcL (0.6-4.6); Lymphocytes % 19.4 %; Mean Corpuscular HGB Conc 33.6 g/dL (31.6-35.5); Mean Corpuscular Hemoglobin 30.3 pg (28.0-33.3); Mean Corpuscular Volume 90.1 fL (83.0-100.0); Mean Platelet Volume 9.6 fL (9.4-12.4); Monocytes # 0.5 K/mcL (0.0-1.3); Monocytes % 7.8 %; Neutrophils # 4.8 K/mcL (1.6-8.9); Platelet Count 206 K/mcL (140-400); Red Blood Count 3.63 M/mcL (3.82-4.97); Red Cell Distribution Width 14.7 % (11.5-14.5); Segmented Neutrophils % 70.6 %; White Blood Count 6.8 K/mcL (4.3-11.1)
[2019-09-24 01:52] LABS: INR 3.6; Prothrombin Time 41.3 Seconds (9.4-12.1)
[2019-09-24 02:07] LABS: Magnesium 1.4 mg/dL (1.6-2.6); Phosphorous 4.1 mg/dL (2.7-4.5); Potassium 3.9 mEq/L (3.5-5.1)
[2019-09-24] MEDS ORDERED: BuPROPion SR (12 HR) 150 MG TABLET PO SCH (09:00)
[2019-09-24] MEDS: Cholecalciferol (D-3) 1,000 UNIT (25MCG) TABLET PO SCH (10:24)
[2019-09-24] MEDS: Furosemide 40 MG TABLET PO SCH (10:25)
[2019-09-24] MEDS: Diltiazem CD (24hr) 240 MG CAPSULE PO SCH (10:25)
[2019-09-24] MEDS: Ranolazine 500 MG TAB.ER.12H PO SCH ×2 (10:25→20:29)
[2019-09-24] MEDS: Insulin LISPRO 300 UNITS/3 ML VIAL SQ SCH ×3 (10:25→17:45)
[2019-09-24] MEDS: Docusate Oral Soln 100 MG/10 ML UDC PO SCH ×2 (10:26→20:31)
[2019-09-24] MEDS: *HR* FentaNYL PATCH 50 MCG PATCH TD SCH (17:45)
[2019-09-24] MEDS: *HR* HYDROcodone/Acet 5/325 mg TABLET PO PRN (20:29)
[2019-09-24] MEDS ORDERED: ROSUVASTATIN CALCIUM 15 MG PO SCH (21:00)
[2019-09-25] MEDS: (Mirabegron [Myrbetriq] 50 MG) PO SCH ×2 (04:13→20:54)
[2019-09-25 06:37] LABS: Basophils % 0.4 %; Eosinophils # 0.1 K/mcL (0.0-0.6); Eosinophils % 1.8 %; Hematocrit 32.5 % (35.3-44.9); Hemoglobin 10.7 g/dL (11.5-15.4); Immature Granulocytes % 0.5 % (0-4); Lymphocytes # 1.4 K/mcL (0.6-4.6); Lymphocytes % 25.5 %; Mean Corpuscular HGB Conc 32.9 g/dL (31.6-35.5); Mean Corpuscular Hemoglobin 30.1 pg (28.0-33.3); Mean Corpuscular Volume 91.5 fL (83.0-100.0); Mean Platelet Volume 10.1 fL (9.4-12.4); Monocytes # 0.5 K/mcL (0.0-1.3); Monocytes % 8.9 %; Neutrophils # 3.6 K/mcL (1.6-8.9); Platelet Count 196 K/mcL (140-400); Red Blood Count 3.55 M/mcL (3.82-4.97); Red Cell Distribution Width 14.7 % (11.5-14.5); Segmented Neutrophils % 62.9 %; White Blood Count 5.6 K/mcL (4.3-11.1)
[2019-09-25 06:39] LABS: INR 2.4; Prothrombin Time 27.2 Seconds (9.4-12.1)
[2019-09-25 07:00] LABS: Calcium 8.9 mg/dL (8.6-10.3); Magnesium 1.4 mg/dL (1.6-2.6); Potassium 4.1 mEq/L (3.5-5.1)
[2019-09-25] MEDS: Docusate Oral Soln 100 MG/10 ML UDC PO SCH (08:19)
[2019-09-25] MEDS: Ranolazine 500 MG TAB.ER.12H PO SCH ×2 (08:20→20:53)
[2019-09-25] MEDS: Cyanocobalamin (B-12) 1,000 MCG TABLET PO SCH (08:21)
[2019-09-25] MEDS: Furosemide 40 MG TABLET PO SCH (08:21)
[2019-09-25] MEDS: BuPROPion SR (12 HR) 150 MG TABLET PO SCH (08:21)
[2019-09-25] MEDS: Cholecalciferol (D-3) 1,000 UNIT (25MCG) TABLET PO SCH (08:21)
[2019-09-25] MEDS: Clotrimazole/Betameth Dip CRM 45 APPL/45 GM TUBE TP SCH (08:22)
[2019-09-25] MEDS: Insulin LISPRO 300 UNITS/3 ML VIAL SQ SCH ×3 (08:22→16:59)
[2019-09-25] MEDS: Diltiazem CD (24hr) 240 MG CAPSULE PO SCH (08:22)
[2019-09-25] MEDS: *HR* HYDROcodone/Acet 5/325 mg TABLET PO PRN ×2 (13:18→20:54)
[2019-09-25] MEDS: *HR* SitaGLIPtin 25 MG TABLET PO SCH (13:18)
[2019-09-25] MEDS: Silvasorb 44.4 ML TUBE TP SCH (16:59)
[2019-09-25] MEDS ORDERED: *HR* Warfarin 2.5 MG TABLET PO ONE (18:00)
[2019-09-25] MEDS ORDERED: *HR* Warfarin 5 MG TABLET PO ONE (18:00)
[2019-09-26 02:51] LABS: Basophils % 0.3 %; Eosinophils # 0.2 K/mcL (0.0-0.6); Eosinophils % 2.6 %; Hematocrit 33.6 % (35.3-44.9); Immature Granulocytes % 0.9 % (0-4); Lymphocytes # 1.4 K/mcL (0.6-4.6); Lymphocytes % 23.7 %; Mean Corpuscular HGB Conc 32.7 g/dL (31.6-35.5); Mean Corpuscular Hemoglobin 30.5 pg (28.0-33.3); Mean Corpuscular Volume 93.1 fL (83.0-100.0); Mean Platelet Volume 10.4 fL (9.4-12.4); Monocytes # 0.5 K/mcL (0.0-1.3); Monocytes % 8.9 %; Neutrophils # 3.7 K/mcL (1.6-8.9); Platelet Count 208 K/mcL (140-400); Red Blood Count 3.61 M/mcL (3.82-4.97); Red Cell Distribution Width 14.8 % (11.5-14.5); Segmented Neutrophils % 63.6 %; White Blood Count 5.8 K/mcL (4.3-11.1)
[2019-09-26 02:55] LABS: INR 1.8; Prothrombin Time 20.9 Seconds (9.4-12.1)
[2019-09-26 03:07] LABS: Calcium 9.2 mg/dL (8.6-10.3); Potassium 4.2 mEq/L (3.5-5.1)
[2019-09-26] MEDS: Insulin LISPRO 300 UNITS/3 ML VIAL SQ SCH ×3 (08:41→17:17)
[2019-09-26] MEDS: Cyanocobalamin (B-12) 1,000 MCG TABLET PO SCH (09:21)
[2019-09-26] MEDS: Cholecalciferol (D-3) 1,000 UNIT (25MCG) TABLET PO SCH (09:21)
[2019-09-26] MEDS: *HR* SitaGLIPtin 25 MG TABLET PO SCH (09:21)
[2019-09-26] MEDS: Ranolazine 500 MG TAB.ER.12H PO SCH ×2 (09:21→21:54)
[2019-09-26] MEDS: Diltiazem CD (24hr) 120 MG CAPSULE PO SCH (09:22)
[2019-09-26] MEDS: BuPROPion SR (12 HR) 150 MG TABLET PO SCH (09:22)
[2019-09-26] MEDS: Clotrimazole/Betameth Dip CRM 45 APPL/45 GM TUBE TP SCH (09:22)
[2019-09-26] MEDS: Silvasorb 44.4 ML TUBE TP SCH (09:22)
[2019-09-26] MEDS: Doxycycline 100 MG CAPSULE PO SCH ×2 (13:57→21:54)
[2019-09-26] MEDS: *HR* HYDROcodone/Acet 5/325 mg TABLET PO PRN (14:04)
[2019-09-26] MEDS: (Mirabegron [Myrbetriq] 50 MG) PO SCH (21:56)
[2019-09-27 07:45] LABS: Calcium 8.9 mg/dL (8.6-10.3); Magnesium 1.6 mg/dL (1.6-2.6); Phosphorous 4.1 mg/dL (2.7-4.5); Potassium 4.4 mEq/L (3.5-5.1)
[2019-09-27] MEDS: Insulin LISPRO 300 UNITS/3 ML VIAL SQ SCH ×3 (07:48→16:55)
[2019-09-27] MEDS: Ranolazine 500 MG TAB.ER.12H PO SCH ×2 (09:32→20:41)
[2019-09-27] MEDS: Doxycycline 100 MG CAPSULE PO SCH ×2 (09:32→20:42)
[2019-09-27] MEDS: BuPROPion SR (12 HR) 150 MG TABLET PO SCH (09:32)
[2019-09-27] MEDS: Clotrimazole/Betameth Dip CRM 45 APPL/45 GM TUBE TP SCH (09:33)
[2019-09-27] MEDS: Diltiazem CD (24hr) 120 MG CAPSULE PO SCH (09:33)
[2019-09-27] MEDS: Cholecalciferol (D-3) 1,000 UNIT (25MCG) TABLET PO SCH (09:33)
[2019-09-27] MEDS: Cyanocobalamin (B-12) 1,000 MCG TABLET PO SCH (09:33)
[2019-09-27] MEDS: *HR* SitaGLIPtin 25 MG TABLET PO SCH (09:33)
[2019-09-27] MEDS: *HR* HYDROcodone/Acet 5/325 mg TABLET PO PRN ×2 (09:33→20:41)
[2019-09-27] MEDS: Silvasorb 44.4 ML TUBE TP SCH (09:34)
[2019-09-27] MEDS ORDERED: 0.9 % Sodium Chloride 1,000 ML IVC SCH (10:00)
[2019-09-27 15:20] LABS: INR 1.5; Prothrombin Time 17.5 Seconds (9.4-12.1)
[2019-09-27] MEDS: *HR* FentaNYL PATCH 50 MCG PATCH TD SCH (17:14)
[2019-09-27] MEDS ORDERED: *HR* Warfarin 3 MG TABLET PO ONE (20:30)
[2019-09-27] MEDS: Nystatin POWDER 30 GM BOTTLE TP SCH ×2 (20:42→20:44)
[2019-09-27] MEDS: (Mirabegron [Myrbetriq] 50 MG) PO SCH (20:42)
[2019-09-28 05:58] LABS: INR 1.6; Prothrombin Time 18.2 Seconds (9.4-12.1)
[2019-09-28 06:38] LABS: Magnesium 1.5 mg/dL (1.6-2.6); Phosphorous 3.9 mg/dL (2.7-4.5); Potassium 4.4 mEq/L (3.5-5.1)
[2019-09-28 07:42] LABS: Adenovirus Not Detected (Not Detect); Bordetella Pertussis Not Detected (Not Detect); Chlamydophila pneumoniae Not Detected (Not Detect); Coronavirus 229E Not Detected (Not Detect); Coronavirus HKU1 Not Detected (Not Detect); Coronavirus NL63 Not Detected (Not Detect); Coronavirus OC43 Not Detected (Not Detect); Human Metapneumovirus Not Detected (Not Detect); Human Rhinovirus/Enterovirus Not Detected (Not Detect); Influenza A Subtype 2009 H1 Not Detected (Not Detect); Influenza B Not Detected (Not Detect); Mycoplasma pneumoniae Not Detected (Not Detect); Parainfluenza Virus 1 Not Detected (Not Detect); Parainfluenza Virus 2 Not Detected (Not Detect); Parainfluenza Virus 3 Not Detected (Not Detect); Parainfluenza Virus 4 Not Detected (Not Detect); Respiratory Syncytial Virus Not Detected (Not Detect)
[2019-09-28] MEDS: *HR* SitaGLIPtin 25 MG TABLET PO SCH (09:26)
[2019-09-28] MEDS: Diltiazem CD (24hr) 120 MG CAPSULE PO SCH (09:26)
[2019-09-28] MEDS: Cyanocobalamin (B-12) 1,000 MCG TABLET PO SCH (09:26)
[2019-09-28] MEDS: Doxycycline 100 MG CAPSULE PO SCH ×2 (09:26→21:40)
[2019-09-28] MEDS: BuPROPion SR (12 HR) 150 MG TABLET PO SCH (09:26)
[2019-09-28] MEDS: Ranolazine 500 MG TAB.ER.12H PO SCH ×2 (09:27→21:40)
[2019-09-28] MEDS: Insulin LISPRO 300 UNITS/3 ML VIAL SQ SCH ×3 (09:28→16:56)
[2019-09-28] MEDS: Nystatin POWDER 30 GM BOTTLE TP SCH ×3 (09:28→21:39)
[2019-09-28] MEDS: Clotrimazole/Betameth Dip CRM 45 APPL/45 GM TUBE TP SCH (09:29)
[2019-09-28] MEDS: Cholecalciferol (D-3) 1,000 UNIT (25MCG) TABLET PO SCH (09:29)
[2019-09-28] MEDS: Silvasorb 44.4 ML TUBE TP SCH (09:30)
[2019-09-28] MEDS ORDERED: Magic Mouthwash 10 ML UD Cup PO PRN (11:01)
[2019-09-28] MEDS: *HR* HYDROcodone/Acet 5/325 mg TABLET PO PRN ×2 (15:30→23:35)
[2019-09-28] MEDS ORDERED: *HR* Warfarin 3 MG TABLET PO ONE (18:00)
[2019-09-28] MEDS: (Mirabegron [Myrbetriq] 50 MG) PO SCH (21:41)
[2019-09-29 05:14] LABS: Basophils % 0.7 %; Eosinophils # 0.1 K/mcL (0.0-0.6); Eosinophils % 2.5 %; Hematocrit 31.6 % (35.3-44.9); Hemoglobin 10.3 g/dL (11.5-15.4); Immature Granulocytes % 1.8 % (0-4); Lymphocytes # 1.5 K/mcL (0.6-4.6); Lymphocytes % 33.1 %; Mean Corpuscular HGB Conc 32.6 g/dL (31.6-35.5); Mean Corpuscular Hemoglobin 30.5 pg (28.0-33.3); Mean Corpuscular Volume 93.5 fL (83.0-100.0); Mean Platelet Volume 9.8 fL (9.4-12.4); Monocytes # 0.5 K/mcL (0.0-1.3); Neutrophils # 2.3 K/mcL (1.6-8.9); Platelet Count 199 K/mcL (140-400); Red Blood Count 3.38 M/mcL (3.82-4.97); Red Cell Distribution Width 14.6 % (11.5-14.5); Segmented Neutrophils % 50.9 %; White Blood Count 4.5 K/mcL (4.3-11.1)
[2019-09-29 05:25] LABS: INR 1.6; Prothrombin Time 18.4 Seconds (9.4-12.1)
[2019-09-29 05:34] LABS: Calcium 9.4 mg/dL (8.6-10.3); Magnesium 1.7 mg/dL (1.6-2.6); Potassium 4.5 mEq/L (3.5-5.1)
[2019-09-29] MEDS: Nystatin POWDER 30 GM BOTTLE TP SCH (08:38)
[2019-09-29] MEDS: Clotrimazole/Betameth Dip CRM 45 APPL/45 GM TUBE TP SCH (08:39)
[2019-09-29] MEDS: Silvasorb 44.4 ML TUBE TP SCH (08:39)
[2019-09-29] MEDS: Insulin LISPRO 300 UNITS/3 ML VIAL SQ SCH ×2 (08:39→12:46)
[2019-09-29] MEDS: BuPROPion SR (12 HR) 150 MG TABLET PO SCH (08:40)
[2019-09-29] MEDS: *HR* SitaGLIPtin 25 MG TABLET PO SCH (08:40)
[2019-09-29] MEDS: Diltiazem CD (24hr) 120 MG CAPSULE PO SCH (08:40)
[2019-09-29] MEDS: Cyanocobalamin (B-12) 1,000 MCG TABLET PO SCH (08:40)
[2019-09-29] MEDS: Ranolazine 500 MG TAB.ER.12H PO SCH (08:40)
[2019-09-29] MEDS: Doxycycline 100 MG CAPSULE PO SCH (08:40)
[2019-09-29] MEDS: Cholecalciferol (D-3) 1,000 UNIT (25MCG) TABLET PO SCH (08:40)
[2019-09-29 12:13] VITALS: BP 114/72
[2019-09-29] MEDS ORDERED: Magnesium Oxide 400 MG TABLET PO ONE (15:00)
[2019-09-29] MEDS ORDERED: *HR* Warfarin 2 MG TABLET PO ONE (18:00)
== END 2019-09-29 15:45 | DRG 637 ==
LOC: EMEROOARM 06:49 → CDU 12:09 → SUATTDRO 13:45 → CDU 14:23 → 3ANU 09-24 19:01
PROVIDERS: ADMIT Student in an Organized Health Care Education/Training Program; ATTEND Internal Medicine

== ENCOUNTER 2020-06-24 12:12 | Inpatient (IN) ==
[2020-06-24 13:13] LABS: Calcium 6.7 mg/dL (8.6-10.3); Magnesium 2.2 mg/dL (1.6-2.6); Potassium 5.5 mEq/L (3.5-5.1)
[2020-06-24 13:16] LABS: Hematocrit 27.1 % (35.3-44.9); Hemoglobin 8.6 g/dL (11.5-15.4); Mean Corpuscular HGB Conc 31.7 g/dL (31.6-35.5); Mean Corpuscular Hemoglobin 31.6 pg (28.0-33.3); Mean Corpuscular Volume 99.6 fL (83.0-100.0); Mean Platelet Volume 9.7 fL (9.4-12.4); Platelet Count 189 K/mcL (140-400); Red Blood Count 2.72 M/mcL (3.82-4.97); Red Cell Distribution Width 12.7 % (11.5-14.5); Segmented Neutrophils % 77.7 %; White Blood Count 7.7 K/mcL (4.3-11.1)
[2020-06-24 13:17] LABS: Basophils % 0.4 %; Eosinophils # 0.1 K/mcL (0.0-0.6); Eosinophils % 1.2 %; Lymphocytes # 0.9 K/mcL (0.6-4.6); Lymphocytes % 12.1 %; Monocytes # 0.6 K/mcL (0.0-1.3); Monocytes % 7.6 %
[2020-06-24 14:13] LABS: Bilirubin,Urine Negative (Negative); Blood,Urine Negative (Negative); Clarity,Urine Clear (Clear); Color,Urine Light-Yellow (Yellow); Glucose,Urine (UA) Normal (Normal); Ketones,Urine Negative (Negative); Leukocyte Esterase,Urine Trace (Negative); Nitrite,Urine Negative (Negative); PH,Urine 5.5 pH Units (5.0-8.0); Protein,Urine Negative (Neg-Trace); RBC,Urine 0-3 per hpf (0-3); Specific Gravity,Urine 1.008 (1.010-1.025); Squamous Epithelial Cell,Urine Few per hpf (None-Few); Urobilinogen,Urine Normal (Normal); WBC,Urine 0-3 per hpf (0-3)
[2020-06-24] MEDS ORDERED: 0.9 % Sodium Chloride 1,000 ML IVC STA (14:19)
[2020-06-24] MEDS ORDERED: Calcium Gluconate 1gm/50mL 1 GM/50 ML BAG IVPB STA (14:20)
[2020-06-24 14:35] LABS: Thyroid Stimulating Hormone 0.209 mcIU/mL (0.340-5.600)
[2020-06-24] MEDS ORDERED: Insulin Human Regular 10 UNIT in 0.9 % Sodium Chloride 10 ML IV ONE (15:18)
[2020-06-24] MEDS ORDERED: *HR* Dextrose 50 % in Water (Vial) 50 ML VIAL IVP ONE (15:18)
[2020-06-24] MEDS ORDERED: Ondansetron 4 MG/2 ML VIAL IVP PRN (15:19)
[2020-06-24] MEDS ORDERED: Naloxone 0.4 MG/ML INJ IVP PRN (15:19)
[2020-06-24 17:46] LABS: Calcium 6.9 mg/dL (8.6-10.3); Potassium 5.3 mEq/L (3.5-5.1)
[2020-06-24 18:05] LABS: Triiodothyronine (T3) Total 0.74 ng/mL (0.87-1.78)
[2020-06-24] MEDS ORDERED: *HR* HYDROcodone/Acet 5/325 mg TABLET PO PRN (19:22)
[2020-06-24] MEDS ORDERED: D5% in Water 1,000 ML IVC PRN (19:56)
[2020-06-24] MEDS ORDERED: Dextrose Gel 15 GM/37.5 ML TUBE PO PRN ×2 (19:56)
[2020-06-24] MEDS ORDERED: *HR* Dextrose 50 % in Water (Vial) 50 ML VIAL IVP PRN (19:56)
[2020-06-24 20:23] LABS: INR 2.1; Prothrombin Time 24.2 Seconds (9.4-12.1)
[2020-06-24] MEDS: *HR* FentaNYL PATCH 50 MCG PATCH TD SCH (20:50)
[2020-06-24] MEDS: SUB Q INSULIN DEVICE SQ SCH (20:55)
[2020-06-24] MEDS: Isosorbide MONOnitrate (24 HR) 30 MG TAB.ER.24H PO SCH (20:56)
[2020-06-24] MEDS: Ranolazine 500 MG TAB.ER.12H PO SCH (21:01)
[2020-06-24] MEDS: Furosemide 20 MG TABLET PO SCH (21:03)
[2020-06-24] MEDS ORDERED: *HR* Warfarin 3 MG TABLET PO ONE (21:16)
[2020-06-25 05:33] LABS: INR 2.4; Prothrombin Time 27.3 Seconds (9.4-12.1)
[2020-06-25 05:36] LABS: Activated Partial Thrombo Time 33.7 Seconds (26.0-36.0)
[2020-06-25 06:05] LABS: Folate 7.2 ng/mL (3.0-16.0)
[2020-06-25 06:16] LABS: Albumin 2.8 g/dL (3.5-5.7); Albumin/Globulin Ratio 1.1 (1.1-2.2); Bilirubin,Total 0.4 mg/dL (0.3-1.0); Calcium 6.8 mg/dL (8.6-10.3); Chol/HDL Ratio 4.4 (0-4.9); Globulin 2.6 g/dL (2.4-3.5); Magnesium 2.1 mg/dL (1.6-2.6); Phosphorous 3.7 mg/dL (2.7-4.5); Potassium 5.1 mEq/L (3.5-5.1); Total Protein 5.4 g/dL (6.4-8.9)
[2020-06-25 06:46] LABS: Eosinophils % 0.8 %; Hematocrit 23.9 % (35.3-44.9); Hemoglobin 7.8 g/dL (11.5-15.4); Immature Granulocytes % 0.6 % (0-4); Mean Corpuscular HGB Conc 32.6 g/dL (31.6-35.5); Mean Corpuscular Hemoglobin 32.4 pg (28.0-33.3); Mean Corpuscular Volume 99.2 fL (83.0-100.0); Mean Platelet Volume 9.9 fL (9.4-12.4); Monocytes # 0.5 K/mcL (0.0-1.3); Monocytes % 9.4 %; Neutrophils # 3.3 K/mcL (1.6-8.9); Platelet Count 169 K/mcL (140-400); Red Blood Count 2.41 M/mcL (3.82-4.97); Red Cell Distribution Width 12.6 % (11.5-14.5); Segmented Neutrophils % 67.8 %; White Blood Count 4.8 K/mcL (4.3-11.1)
[2020-06-25 06:47] LABS: Basophils % 0.4 %
[2020-06-25] MEDS ORDERED: *HR* Warfarin 5 MG TABLET PO SCH (09:00)
[2020-06-25] MEDS ORDERED: Iron Sucrose Complex 400 MG in 0.9 % Sodium Chloride 250 ML IVPB ONE (09:09)
[2020-06-25] MEDS: DilTIAZem CD (24hr) 180 MG CAP.ER.24H PO SCH (10:56)
[2020-06-25] MEDS: BuPROPion SR (12 HR) 150 MG TABLET PO SCH (10:56)
[2020-06-25] MEDS: Cyanocobalamin (B-12) 1,000 MCG TABLET PO SCH (10:56)
[2020-06-25] MEDS: Isosorbide MONOnitrate (24 HR) 30 MG TAB.ER.24H PO SCH ×3 (10:56→20:42)
[2020-06-25] MEDS: Multivit/Ca/Min/Fe/FA 1 TAB TABLET PO SCH (10:56)
[2020-06-25] MEDS: Ranolazine 500 MG TAB.ER.12H PO SCH ×2 (10:57→20:43)
[2020-06-25] MEDS: Furosemide 20 MG TABLET PO SCH ×2 (10:57→18:04)
[2020-06-25] MEDS: Lactobacillus 1 EACH CAP.SPRINK PO SCH (10:57)
[2020-06-25] MEDS: Cholecalciferol (D-3) 1,000 UNIT (25MCG) TABLET PO SCH (10:57)
[2020-06-25] MEDS: Albumin 25% 25gram/100mL 25 GM/100 ML IV.SOLN IVPB SCH (17:12)
[2020-06-25] MEDS ORDERED: Warfarin perPT PO PRN (18:00)
[2020-06-25] MEDS ORDERED: *HR* Warfarin 3 MG TABLET PO ONE (18:00)
[2020-06-25] MEDS: SUB Q INSULIN DEVICE SQ SCH (20:41)
[2020-06-25] MEDS: levETIRAcetam 250 MG TABLET PO SCH (20:42)
[2020-06-25] MEDS: *HR* HYDROcodone/Acet 5/325 mg TABLET PO PRN (20:47)
[2020-06-26 06:05] LABS: INR 2.7; Prothrombin Time 29.9 Seconds (9.4-12.1)
[2020-06-26 06:12] LABS: Hemoglobin 7.6 g/dL (11.5-15.4); Mean Corpuscular HGB Conc 31.7 g/dL (31.6-35.5); Mean Corpuscular Hemoglobin 31.1 pg (28.0-33.3); Mean Corpuscular Volume 98.4 fL (83.0-100.0); Mean Platelet Volume 9.5 fL (9.4-12.4); Platelet Count 174 K/mcL (140-400); Red Blood Count 2.44 M/mcL (3.82-4.97); Red Cell Distribution Width 12.8 % (11.5-14.5); White Blood Count 4.7 K/mcL (4.3-11.1)
[2020-06-26 06:35] LABS: Calcium 7.2 mg/dL (8.6-10.3); Magnesium 1.8 mg/dL (1.6-2.6); Potassium 4.1 mEq/L (3.5-5.1)
[2020-06-26] MEDS: Lactobacillus 1 EACH CAP.SPRINK PO SCH (09:34)
[2020-06-26] MEDS: Albumin 25% 25gram/100mL 25 GM/100 ML IV.SOLN IVPB SCH ×2 (09:34→16:02)
[2020-06-26] MEDS: DilTIAZem CD (24hr) 180 MG CAP.ER.24H PO SCH (09:38)
[2020-06-26] MEDS: Ranolazine 500 MG TAB.ER.12H PO SCH ×2 (09:38→20:48)
[2020-06-26] MEDS: Multivit/Ca/Min/Fe/FA 1 TAB TABLET PO SCH (09:39)
[2020-06-26] MEDS: Cyanocobalamin (B-12) 1,000 MCG TABLET PO SCH (09:39)
[2020-06-26] MEDS: levETIRAcetam 250 MG TABLET PO SCH ×2 (09:39→20:48)
[2020-06-26] MEDS: Cholecalciferol (D-3) 1,000 UNIT (25MCG) TABLET PO SCH (09:40)
[2020-06-26] MEDS: Isosorbide MONOnitrate (24 HR) 30 MG TAB.ER.24H PO SCH ×3 (09:40→20:48)
[2020-06-26] MEDS: BuPROPion SR (12 HR) 150 MG TABLET PO SCH (09:40)
[2020-06-26] MEDS: Acetaminophen 325 MG TABLET PO PRN (09:48)
[2020-06-26] MEDS: Furosemide 20 MG TABLET PO SCH ×2 (10:23→16:02)
[2020-06-26 14:44] LABS: Hematocrit 22.5 % (35.3-44.9); Hemoglobin 7.1 g/dL (11.5-15.4)
[2020-06-26] MEDS ORDERED: *HR* Warfarin 3 MG TABLET PO ONE (18:00)
[2020-06-26] MEDS: Pantoprazole 40 MG VIAL IVP SCH (18:47)
[2020-06-26] MEDS: SUB Q INSULIN DEVICE SQ SCH (19:55)
[2020-06-26 19:59] LABS: Basophils % 0.2 %; Eosinophils # 0.1 K/mcL (0.0-0.6); Eosinophils % 1.3 %; Hemoglobin 7.3 g/dL (11.5-15.4); Immature Granulocytes % 1.1 % (0-4); Lymphocytes # 1.3 K/mcL (0.6-4.6); Lymphocytes % 28.7 %; Mean Corpuscular HGB Conc 31.7 g/dL (31.6-35.5); Mean Corpuscular Hemoglobin 31.5 pg (28.0-33.3); Mean Corpuscular Volume 99.1 fL (83.0-100.0); Mean Platelet Volume 9.8 fL (9.4-12.4); Monocytes # 0.4 K/mcL (0.0-1.3); Monocytes % 9.7 %; Neutrophils # 2.7 K/mcL (1.6-8.9); Platelet Count 162 K/mcL (140-400); Red Blood Count 2.32 M/mcL (3.82-4.97); Red Cell Distribution Width 12.8 % (11.5-14.5); White Blood Count 4.5 K/mcL (4.3-11.1)
[2020-06-26] MEDS: *HR* HYDROcodone/Acet 5/325 mg TABLET PO PRN (20:49)
[2020-06-27] MEDS: Pantoprazole 40 MG VIAL IVP SCH ×2 (05:15→17:25)
[2020-06-27 05:49] LABS: Hematocrit 22.6 % (35.3-44.9); Hemoglobin 7.3 g/dL (11.5-15.4); Immature Reticulocyte % 15.3 % (11.0-38.0); Mean Corpuscular HGB Conc 32.3 g/dL (31.6-35.5); Mean Corpuscular Hemoglobin 32.2 pg (28.0-33.3); Mean Corpuscular Volume 99.6 fL (83.0-100.0); Mean Platelet Volume 9.6 fL (9.4-12.4); Platelet Count 155 K/mcL (140-400); Red Blood Count 2.27 M/mcL (3.82-4.97); Red Cell Distribution Width 12.7 % (11.5-14.5); Retculocyte # 0.06 M/mcL (0.05-0.10); Reticulocyte % 2.8 % (1.6-2.8); White Blood Count 5.2 K/mcL (4.3-11.1)
[2020-06-27 05:50] LABS: INR 2.2; Prothrombin Time 25.2 Seconds (9.4-12.1)
[2020-06-27 06:09] LABS: Albumin 3.4 g/dL (3.5-5.7); Albumin/Globulin Ratio 1.5 (1.1-2.2); Bilirubin,Direct 0.1 mg/dL (0.0-0.2); Bilirubin,Indirect 0.3 mg/dL (0.0-1.0); Bilirubin,Total 0.4 mg/dL (0.3-1.0); Calcium 7.6 mg/dL (8.6-10.3); Globulin 2.2 g/dL (2.4-3.5); Magnesium 1.7 mg/dL (1.6-2.6); Phosphorous 3.3 mg/dL (2.7-4.5); Potassium 3.9 mEq/L (3.5-5.1); Total Protein 5.6 g/dL (6.4-8.9)
[2020-06-27] MEDS: Albumin 25% 25gram/100mL 25 GM/100 ML IV.SOLN IVPB SCH ×2 (10:20→15:22)
[2020-06-27] MEDS: BuPROPion SR (12 HR) 150 MG TABLET PO SCH (10:23)
[2020-06-27] MEDS: levETIRAcetam 250 MG TABLET PO SCH ×2 (10:25→20:57)
[2020-06-27] MEDS: Furosemide 20 MG TABLET PO SCH ×2 (10:25→17:25)
[2020-06-27] MEDS: Ranolazine 500 MG TAB.ER.12H PO SCH ×2 (10:25→20:57)
[2020-06-27] MEDS: *HR* HYDROcodone/Acet 5/325 mg TABLET PO PRN (10:25)
[2020-06-27] MEDS: Cyanocobalamin (B-12) 1,000 MCG TABLET PO SCH (10:26)
[2020-06-27] MEDS: Multivit/Ca/Min/Fe/FA 1 TAB TABLET PO SCH (10:26)
[2020-06-27] MEDS: Cholecalciferol (D-3) 1,000 UNIT (25MCG) TABLET PO SCH (10:26)
[2020-06-27] MEDS: Lactobacillus 1 EACH CAP.SPRINK PO SCH (10:26)
[2020-06-27] MEDS: Isosorbide MONOnitrate (24 HR) 30 MG TAB.ER.24H PO SCH ×3 (10:26→20:57)
[2020-06-27] MEDS: DilTIAZem CD (24hr) 180 MG CAP.ER.24H PO SCH (10:26)
[2020-06-27] MEDS: *HR* FentaNYL PATCH 50 MCG PATCH TD SCH (20:58)
[2020-06-28] MEDS: Pantoprazole 40 MG VIAL IVP SCH ×2 (05:52→17:29)
[2020-06-28 06:34] LABS: Hematocrit 22.9 % (35.3-44.9); Hemoglobin 7.1 g/dL (11.5-15.4); Mean Corpuscular Hemoglobin 30.6 pg (28.0-33.3); Mean Corpuscular Volume 98.7 fL (83.0-100.0); Mean Platelet Volume 9.4 fL (9.4-12.4); Platelet Count 159 K/mcL (140-400); Red Blood Count 2.32 M/mcL (3.82-4.97); Red Cell Distribution Width 12.5 % (11.5-14.5); White Blood Count 5.7 K/mcL (4.3-11.1)
[2020-06-28 06:43] LABS: INR 1.7; Prothrombin Time 19.2 Seconds (9.4-12.1)
[2020-06-28 06:46] LABS: Activated Partial Thrombo Time 32.2 Seconds (26.0-36.0)
[2020-06-28 06:56] LABS: Calcium 7.7 mg/dL (8.6-10.3); Magnesium 1.8 mg/dL (1.6-2.6); Phosphorous 2.8 mg/dL (2.7-4.5); Potassium 3.7 mEq/L (3.5-5.1)
[2020-06-28] MEDS: BuPROPion SR (12 HR) 150 MG TABLET PO SCH (08:15)
[2020-06-28] MEDS: Cholecalciferol (D-3) 1,000 UNIT (25MCG) TABLET PO SCH (08:15)
[2020-06-28] MEDS: levETIRAcetam 250 MG TABLET PO SCH ×2 (08:16→20:04)
[2020-06-28] MEDS: Isosorbide MONOnitrate (24 HR) 30 MG TAB.ER.24H PO SCH ×3 (08:16→20:05)
[2020-06-28] MEDS: Ranolazine 500 MG TAB.ER.12H PO SCH ×2 (08:16→20:05)
[2020-06-28] MEDS: Furosemide 20 MG TABLET PO SCH ×2 (08:16→17:29)
[2020-06-28] MEDS: Cyanocobalamin (B-12) 1,000 MCG TABLET PO SCH (08:17)
[2020-06-28] MEDS: *HR* HYDROcodone/Acet 5/325 mg TABLET PO PRN (08:17)
[2020-06-28] MEDS: Lactobacillus 1 EACH CAP.SPRINK PO SCH (08:17)
[2020-06-28] MEDS: DilTIAZem CD (24hr) 180 MG CAP.ER.24H PO SCH (08:17)
[2020-06-28] MEDS: Multivit/Ca/Min/Fe/FA 1 TAB TABLET PO SCH (08:17)
[2020-06-28 09:34] LABS: Adenovirus Not Detected (Not Detect); Bordetella Pertussis Not Detected (Not Detect); Chlamydophila pneumoniae Not Detected (Not Detect); Coronavirus 229E Not Detected (Not Detect); Coronavirus HKU1 Not Detected (Not Detect); Coronavirus NL63 Not Detected (Not Detect); Coronavirus OC43 Not Detected (Not Detect); Human Metapneumovirus Not Detected (Not Detect); Human Rhinovirus/Enterovirus Not Detected (Not Detect); Influenza A Subtype 2009 H1 Not Detected (Not Detect); Influenza B Not Detected (Not Detect); Mycoplasma pneumoniae Not Detected (Not Detect); Parainfluenza Virus 1 Not Detected (Not Detect); Parainfluenza Virus 2 Not Detected (Not Detect); Parainfluenza Virus 3 Not Detected (Not Detect); Parainfluenza Virus 4 Not Detected (Not Detect); Respiratory Syncytial Virus Not Detected (Not Detect); SARS-CoV-2 Not Detected (Not Detect)
[2020-06-28] MEDS ORDERED: Famotidine 20 MG/2 ML VIAL IVP ONE (10:44)
[2020-06-28] MEDS ORDERED: Lidocaine -MPF 2% 2 ML VIAL ONE (14:19)
[2020-06-28] MEDS ORDERED: *HR* Propofol 500 MG/50 ML BOTTLE IVP ONE (15:47)
[2020-06-28] MEDS ORDERED: Lidocaine -MPF 2% 5 ML VIAL SQ ONE (15:47)
[2020-06-28] MEDS: Acetaminophen 325 MG TABLET PO PRN (20:04)
[2020-06-29] MEDS: Pantoprazole 40 MG VIAL IVP SCH (05:39)
[2020-06-29 07:40] LABS: Hematocrit 22.2 % (35.3-44.9); Hemoglobin 7.1 g/dL (11.5-15.4); Mean Platelet Volume 10.1 fL (9.4-12.4); Platelet Count 171 K/mcL (140-400); Red Blood Count 2.22 M/mcL (3.82-4.97); Red Cell Distribution Width 12.9 % (11.5-14.5); White Blood Count 5.1 K/mcL (4.3-11.1)
[2020-06-29 08:04] LABS: Calcium 7.7 mg/dL (8.6-10.3); Potassium 3.9 mEq/L (3.5-5.1)
[2020-06-29] MEDS: Multivit/Ca/Min/Fe/FA 1 TAB TABLET PO SCH (08:11)
[2020-06-29] MEDS: BuPROPion SR (12 HR) 150 MG TABLET PO SCH (08:11)
[2020-06-29] MEDS: Furosemide 20 MG TABLET PO SCH ×2 (08:12→18:27)
[2020-06-29] MEDS: Cholecalciferol (D-3) 1,000 UNIT (25MCG) TABLET PO SCH (08:12)
[2020-06-29] MEDS: Ranolazine 500 MG TAB.ER.12H PO SCH ×2 (08:12→20:20)
[2020-06-29] MEDS: Cyanocobalamin (B-12) 1,000 MCG TABLET PO SCH (08:12)
[2020-06-29] MEDS: DilTIAZem CD (24hr) 180 MG CAP.ER.24H PO SCH (08:13)
[2020-06-29] MEDS: levETIRAcetam 250 MG TABLET PO SCH ×2 (08:13→20:21)
[2020-06-29] MEDS: Lactobacillus 1 EACH CAP.SPRINK PO SCH (08:13)
[2020-06-29] MEDS: Isosorbide MONOnitrate (24 HR) 30 MG TAB.ER.24H PO SCH ×3 (08:14→20:21)
[2020-06-29] MEDS: Fluconazole 100 MG TABLET PO SCH (12:47)
[2020-06-29] MEDS: *HR* HYDROcodone/Acet 5/325 mg TABLET PO PRN (14:46)
[2020-06-29 23:57] LABS: Hematocrit 23.9 % (35.3-44.9); Hemoglobin 7.6 g/dL (11.5-15.4)
[2020-06-30 07:01] LABS: Basophils % 0.5 %; Eosinophils # 0.1 K/mcL (0.0-0.6); Hematocrit 23.4 % (35.3-44.9); Hemoglobin 7.5 g/dL (11.5-15.4); Immature Granulocytes % 0.8 % (0-4); Lymphocytes # 1.9 K/mcL (0.6-4.6); Lymphocytes % 32.9 %; Mean Corpuscular HGB Conc 32.1 g/dL (31.6-35.5); Mean Corpuscular Hemoglobin 31.9 pg (28.0-33.3); Mean Corpuscular Volume 99.6 fL (83.0-100.0); Mean Platelet Volume 9.4 fL (9.4-12.4); Monocytes # 0.5 K/mcL (0.0-1.3); Monocytes % 9.2 %; Neutrophils # 3.2 K/mcL (1.6-8.9); Platelet Count 160 K/mcL (140-400); Red Blood Count 2.35 M/mcL (3.82-4.97); Red Cell Distribution Width 12.9 % (11.5-14.5); Segmented Neutrophils % 54.6 %; White Blood Count 5.9 K/mcL (4.3-11.1)
[2020-06-30 07:25] LABS: Calcium 7.7 mg/dL (8.6-10.3); Magnesium 1.6 mg/dL (1.6-2.6); Potassium 3.7 mEq/L (3.5-5.1)
[2020-06-30] MEDS ORDERED: polyethylene glycoL 3350 17 GM POWD.PACK PO SCH (09:00)
[2020-06-30] MEDS: Ranolazine 500 MG TAB.ER.12H PO SCH (09:50)
[2020-06-30] MEDS: Lactobacillus 1 EACH CAP.SPRINK PO SCH (09:50)
[2020-06-30] MEDS: levETIRAcetam 250 MG TABLET PO SCH (09:50)
[2020-06-30] MEDS: Cholecalciferol (D-3) 1,000 UNIT (25MCG) TABLET PO SCH (09:51)
[2020-06-30] MEDS: Fluconazole 100 MG TABLET PO SCH (09:51)
[2020-06-30] MEDS: BuPROPion SR (12 HR) 150 MG TABLET PO SCH (09:51)
[2020-06-30] MEDS: DilTIAZem CD (24hr) 180 MG CAP.ER.24H PO SCH (09:51)
[2020-06-30] MEDS: Isosorbide MONOnitrate (24 HR) 30 MG TAB.ER.24H PO SCH (09:51)
[2020-06-30] MEDS: Multivit/Ca/Min/Fe/FA 1 TAB TABLET PO SCH (09:51)
[2020-06-30] MEDS: Cyanocobalamin (B-12) 1,000 MCG TABLET PO SCH (09:52)
[2020-06-30] MEDS: Furosemide 20 MG TABLET PO SCH (09:52)
[2020-06-30] MEDS: *HR* HYDROcodone/Acet 5/325 mg TABLET PO PRN (10:00)
[2020-06-30 11:31] VITALS: BP 150/79
== END 2020-06-30 15:48 | disposition home health service (06) | DRG 640 ==
LOC: 3ANU 12:12 → EMEROOARM 12:12 → SUATTDRO 14:58 → 3ANU 16:10 → SUATTDRO 06-25 17:03
PROVIDERS: ADMIT Internal Medicine; ATTEND Pharmacist
PROC: ENDOEBX (2020-06-28 12:00)